=== PATIENT | female | born 1960 | race Hispanic/Latino ===

== ENCOUNTER 2018-05-29 06:31 | Inpatient (IN) | payer MEDICARE, SELFPAY ==
[2018-05-29] MEDS ORDERED: ALBUTEROL 2.5 MG/3 ML NEB SOL ONE (06:50)
[2018-05-29] MEDS ORDERED: IPRATROPIUM BROM 0.5MG/2.5ML ONE (06:50)
[2018-05-29 07:08] LABS: Arterial Blood Carboxyhemoglob 0.4 % (0-1.5); Blood Gas Oxyhemoglobin 97.1 % (94-97); Blood O2 Saturation 98.7 % (92-98.5)
[2018-05-29] MEDS ORDERED: dilTIAZem HCl 25 MG/5 ML VIAL IV ONE (07:21)
[2018-05-29 07:27] LABS: Absolute Lymphocytes (CBC) 6.8 K/uL (0.7-4.9); Absolute Monocytes 1.9 K/uL (0.1-1.3); Absolute Neutrophil 18.6 K/uL (1.8-8.0); Basophils % 0.7 % (0-1.3); Eosinophils % 1.3 % (0-4.4); Hematocrit 40.2 % (36.0-45.0); Lymphocytes % 24.4 % (15.3-44.8); Monocytes % 6.8 % (3.3-12.3)
[2018-05-29 07:28] LABS: Protime INR 0.94
[2018-05-29] MEDS ORDERED: AZITHROMYCIN IV 500 MG in NA CHLORIDE 0.9% 250 ML IVPB ONE (08:00)
[2018-05-29] MEDS ORDERED: CEFTRIAXONE/SWI 1gm 1 GM/10 ML SYR ONE (08:04)
[2018-05-29 08:17] LABS: ALT/SGPT 63 U/L (12-78); AST/SGOT 45 U/L (15-37); Albumin 3.2 g/dL (3.4-5.0); Alkaline Phosphatase 158 U/L (45-117); BUN Blood Urea Nitrogen 19 mg/dL (7-18); Bicarbonate 20 mmol/L (21-32); Bilirubin Direct < 0.1 mg/dL (0-0.2); Bilirubin Total 0.3 mg/dL (0.2-1.0); Magnesium 2.5 mg/dL (1.8-2.4); NT PRO-BNP 1132 pg/mL (<125); Potassium 3.9 mmol/L (3.5-5.1); Sodium Level 142 mmol/L (136-145); Troponin (Emerg Dept Use Only) 0.32 ng/mL (0.0-0.045)
[2018-05-29 08:19] LABS: Glucose Level 416 mg/dL (74-106)
--- NOTE | 2018-05-29 08:24 | RAD REPORT ---
EXAM DESCRIPTION: RAD - Chest Single View - 05/29/2018 7:38 am CLINICAL HISTORY: Dyspnea COMPARISON: None. TECHNIQUE: AP portable chest image was obtained 0735 hours . FINDINGS: Interstitial and alveolar opacification present in each lung base, worse in the right base where there is obscuring of the right hemidiaphragm. Focal density obscuring the right heart border is likely right middle lobe consolidation. Cardiac silhouette overall is enlarged. Pulmonary vasculat ure is only mildly prominent. No focal upper lung field abnormality. Cardiac leads overlie the chest. There is an additional radiopaque tube overlying the upper right chest not fully imaged. No pneumoth orax. No acute bony abnormality seen. No acute aortic findings suspected. IMPRESSION: Extensive right middle lobe opacification with additional evidence for right lower lobe infiltrate. Left base interstitial and alveolar opacification present as well. Cardiomegaly without vascular engorgement.
--- NOTE | 2018-05-29 08:43 | EDPHYS ---
Physician Documentation [facility] Name: Irlanda Woods Age: 58 yrs Sex: Female : 1960 Arrival Date: 05/29/2018 Time: 06:32 Bed 3 Private MD: ED Physician Kannan Martines HPI: 05/29 06:48 This 58 yrs old Female presents to ER via Unassigned with complaints of ps1 Respiratory Distress. 06:48 Patient has a history of COPD, Afib on Eliquis, sees Dr. Ugarte and Allen in [place], ps1 States that she started having increased shortness of breath this morning. She called EMS and they gave her steroids and breathing treatments VEGETABLES COOK. . Historical: - Allergies: 06:58 No Known Allergies; rr5 - PMHx: 07:01 COPD; Myocardial infarction; Diabetes - NIDDM; rr5 07:02 Hypertension; Atrial Fib; rr5 - PSHx: 07:01 Heart stents; rr5 - Immunization history:: Adult Immunizations up to date. - Social history:: Smoking status: Patient uses tobacco products. - Ebola Screening: : No symptoms or risks identified at this time. ROS: 06:48 Constitutional: Negative for fever, chills, and weight loss, Eyes: Negative for injury, ps1 pain, redness, and discharge, ENT: Negative for injury, pain, and discharge, Abdomen/GI: Negative for abdominal pain, nausea, vomiting, diarrhea, and constipation, Back: Negative for injury and pain, MS/Extremity: Negative for injury and deformity, Skin: Negative for injury, rash, and discoloration, Neuro: Negative for headache, weakness, numbness, tingling, and seizure. 06:48 Cardiovascular: Positive for palpitations. 06:48 Respiratory: Positive for cough, shortness of breath, wheezing. Exam: 06:48 Head/Face: Normocephalic, atraumatic. Eyes: Pupils equal round and reactive to light, ps1 extra-ocular motions intact. Lids and lashes normal. Conjunctiva and sclera are non-icteric and not injected. Chest/axilla: Normal chest wall appearance and motion. Nontender with no deformity. No lesions are appreciated. Abdomen/GI: Soft, non-tender, with normal bowel sounds. No distension or tympany. No guarding or rebound. No evidence of tenderness throughout. Skin: Warm, dry with normal turgor. Normal color with no rashes, no lesions, and no evidence of cellulitis. MS/ Extremity: Pulses equal, no cyanosis. Neurovascular intact. Full, normal range of motion. Neuro: Awake and alert, GCS 15, oriented to person, place, time, and situation. Cranial nerves II-XII grossly intact. Sensory grossly intact. Psych: Awake, alert, with orientation to person, place and time. Behavior, mood, and affect are within normal limits. 06:48 Constitutional: The patient appears alert, in obvious distress, moderately distressed. 06:48 Cardiovascular: Rate: tachycardic, Rhythm: irregular, Pulses: no pulse deficits are appreciated. 06:48 Respiratory: moderate respiratory distress is noted, Respirations: labored breathing, Breath sounds: wheezing: Vital Signs: 06:30 BP 173 / 93; Pulse 149; Resp 26; Temp 96(O); Pulse Ox 87% on Non-rebreather mask; rr5 Weight 117.93 kg; Height 5 ft. 6 in. (167.64 cm); 07:06 BP 132 / 82; Pulse 111; Resp 22; Pulse Ox 96% on BiPAP; rr5 07:38 BP 131 / 81; Pulse 97; Resp 26; Pulse Ox 95% on BiPAP; Pain 0/10; jl7 09:04 BP 137 / 81; Pulse 100; Resp 20; Pulse Ox 96% on BiPAP; hj 09:50 BP 121 / 69; Pulse 96; Resp 19 S; Pulse Ox 95% on BiPAP; jl7 06:30 Body Mass Index 41.96 (117.93 kg, 167.64 cm) rr5 MDM: 07:00 Patient medically screened. ps1 08:44 Data reviewed: vital signs, nurses notes, lab test result(s), radiologic studies. kdr Counseling: I had a detailed discussion with the patient and/or guardian regarding: the historical points, exam findings, and any diagnostic results supporting the discharge/admit diagnosis, lab results, radiology results, the need for further work-up and treatment in the hospital. 05/29 06:34 Order name: Basic Metabolic Panel; Complete Time: 08:42 rr5 05/29 06:34 Order name: CBC with Diff rr5 05/29 06:34 Order name: LFT's; Complete Time: 08:42 rr5 05/29 06:34 Order name: Magnesium; Complete Time: 08:42 rr5 05/29 06:34 Order name: NT PRO-BNP; Complete Time: 08:42 rr5 05/29 06:34 Order name: PT-INR; Complete Time: 07:40 rr5 05/29 06:34 Order name: Troponin (emerg Dept Use Only); Complete Time: 08:42 rr5 05/29 06:34 Order name: Blood Culture Adult (2) rr5 05/29 06:34 Order name: Lactate; Complete Time: 08:19 rr5 05/29 06:58 Order name: Procalcitonin; Complete Time: 08:42 ps1 05/29 07:05 Order name: ABG; Complete Time: 07:40 ea 05/29 08:36 Order name: Glucose, Ancillary Testing; Complete Time: 08:42 EDMS 05/29 09:07 Order name: Manual Differential EDMS 05/29 10:04 Order name: Glucose, Ancillary Testing EDMS 05/29 06:34 Order name: XRAY Chest (1 view); Complete Time: 08:42 rr5 05/29 06:34 Order name: EKG; Complete Time: 06:35 rr5 05/29 06:34 Order name: Cardiac monitoring; Complete Time: 06:36 rr5 05/29 06:34 Order name: EKG - Nurse/Tech; Complete Time: 06:36 rr5 05/29 06:34 Order name: IV Saline Lock; Complete Time: 06:36 rr5 05/29 06:34 Order name: Labs collected and sent; Complete Time: 06:36 rr5 05/29 06:34 Order name: O2 Per Protocol; Complete Time: 06:36 rr5 05/29 06:34 Order name: O2 Sat Monitoring; Complete Time: 06:36 rr5 Administered Medications: 06:35 Drug: Ativan 1 mg Route: IVP; Site: left antecubital; rr5 07:00 Follow up: Response: No adverse reaction jl7 06:35 Drug: Cardizem 10 mg Route: IVP; Site: left antecubital; rr5 07:00 Follow up: Response: No adverse reaction jl7 06:42 Drug: Cardizem 10 mg Route: IVP; Site: left antecubital; rr5 07:00 Follow up: Response: No adverse reaction jl7 08:03 Drug: Rocephin 1 grams Route: IV; Rate: calculated rate; Site: right forearm; 08:05 Follow up: Response: No adverse reaction; IV Status: Completed infusion 08:04 Not Given (Duplicate Order): Rocephin - (cefTRIAXone) 1 grams IVPB once over 30 mins; jl7 (mix in 50 mL NS) 08:15 Drug: Zithromax 500 mg Route: IVPB; Infused Over: 1 hrs; Site: right forearm; jl 09:15 Follow up: Response: No adverse reaction; IV Status: Completed infusion 08:43 Drug: Insulin Regular Human 10 units {Co-Signature: vicky (Dennis Leigh RN).} Route: IVP; Site: right forearm; 10:26 Follow up: Response: No adverse reaction; Blood sugar is lowered 08:44 Drug: NS 0.9% (30 ml/kg) 30 ml/kg Route: IV; Rate: bolus; Site: right forearm; 09:55 Follow up: IV Status: Completed infusion; IV Intake: 1000ml Point of Care Testing: Blood Glucose: 06:30 Blood Glucose: 412 mg/dL; rr5 Ranges: Critical Glucose Levels:Adult <50 mg/dl or >400 mg/dl <40 mg/dl or >180 mg/dl Disposition: 05/29/18 08:42 Hospitalization ordered by Jesus Coello for Inpatient Admission. Preliminary diagnosis are Acute Respiratory Failure, Pneumonia, unspecified organism. - Bed requested for Intensive Care Unit. - Status is Inpatient Admission. jl7 - Condition is Serious. - Problem is new. - Symptoms have improved. UTI on Admission? No Signatures: Dispatcher [employer] EDMS Asha Hutchins Kevin, MD MD kdr Leal, Jahala, RN RN jl7 Jatinder Patton MD MD ps1 Roque, Raymond, RN RN rr5 Dennis perry Corrections: (The following items were deleted from the chart) 08:44 08:42 Hospitalization Ordered by Jesus Coello DO for Inpatient Admission. Preliminary kdr diagnosis is Acute Respiratory Failure. Bed requested for Telemetry/MedSurg (Inpatient). Status is Inpatient Admission. Condition is Serious. Problem is new. Symptoms have improved. UTI on Admission? No. kdr 09:43 08:44 05/29/2018 08:42 Hospitalization Ordered by Jesus Coello DO for Inpatient bd Admission. Preliminary diagnosis is Acute Respiratory Failure; Pneumonia, unspecified organism. Bed requested for Telemetry/MedSurg (Inpatient). Status is Inpatient Admission. Condition is Serious. Problem is new. Symptoms have improved. UTI on Admission? No. kdr 10:27 09:43 05/29/2018 08:42 Hospitalization Ordered by Jesus Coello DO for Inpatient jl7 Admission. Preliminary diagnosis is Acute Respiratory Failure; Pneumonia, unspecified organism. Bed requested for Intensive Care Unit. Status is Inpatient Admission. Condition is Serious. Problem is new. Symptoms have improved. UTI on Admission? No. bd
--- NOTE | 2018-05-29 08:43 | ER ---
Nurse's Notes [facility] Name: Irlanda Woods Age: 58 yrs Sex: Female : 1960 Arrival Date: 05/29/2018 Time: 06:32 Bed 3 Private MD: Diagnosis: Acute Respiratory Failure;Pneumonia, unspecified organism Presentation: 05/29 06:30 Presenting complaint: EMS states: Respiratory distress, 87% on NRB after A\T\A treatment, rr5 Pt is pale and diaphoretic. No tolerating Bipap 20 g L AC, 4 mg zofran, 125 solumedrol and A\T\A treatment given per EMS. Transition of care: patient was not received from another setting of care. Onset of symptoms was May 29, 2018. Risk Assessment: Do you want to hurt yourself or someone else? Patient reports no desire to harm self or others. Initial Sepsis Screen: Does the patient meet any 2 criteria? RR > 20 per min. HR > 90 bpm. Does the patient have a suspected source of infection? No. Patient's initial sepsis screen is negative. Care prior to arrival: Medication(s) given: Albuterol Neb x 1, Atrovent Neb x 1, zofran 4 mg, 125 solumedrol IV initiated. 20 GA, in the left antecubital area, Oxygen administered. via a non-rebreather mask. 06:30 Method Of Arrival: EMS: [facility] rr5 06:30 Acuity: KIRK 1 rr5 Triage Assessment: 06:30 General: Appears distressed, uncomfortable, Behavior is appropriate for age, anxious, rr5 listless, restless. Pain: Complains of pain in chest. Neuro: Level of Consciousness is obeys commands, listless, Oriented to person, place, time, situation. Cardiovascular: Rhythm is sinus tachycardia. Respiratory: Reports shortness of breath labored breathing Airway is patent Respiratory effort is labored, pursed lip, Respiratory pattern is symmetrical, tachypnea Breath sounds with wheezes bilaterally. Onset: The symptoms/episode began/occurred this morning, the patient has severe shortness of breath. GI: Reports nausea. : No signs and/or symptoms were reported regarding the genitourinary system. Derm: Skin is diaphoretic, Skin is pale, Skin temperature is cool. Historical: - Allergies: 06:58 No Known Allergies; rr5 - PMHx: 07:01 COPD; Myocardial infarction; Diabetes - NIDDM; rr5 07:02 Hypertension; Atrial Fib; rr5 - PSHx: 07:01 Heart stents; rr5 - Immunization history:: Adult Immunizations up to date. - Social history:: Smoking status: Patient uses tobacco products. - Ebola Screening: : No symptoms or risks identified at this time. Screenin:44 Abuse screen: Denies threats or abuse. Denies injuries from another. Nutritional rr5 screening: No deficits noted. Tuberculosis screening: No symptoms or risk factors identified. Fall Risk IV access (20 points). Total Jones Fall Scale indicates No Risk (0-24 pts). Assessment: 06:30 General: see triage assessment. rr5 06:55 Reassessment: Dr. Roth VO for 10 units insulin IV, see MAR. rr5 07:03 General: ER MD ordered to hold insulin until CMP returns. rr5 07:15 Pain: Denies pain. Neuro: Level of Consciousness is awake, alert, obeys commands, jl7 Oriented to person, place, time. Cardiovascular: Denies chest pain, Heart tones S1 S2 present Patient's skin is warm and dry. Rhythm is regular. Respiratory: Airway is patent Respiratory effort is even, labored, Respiratory pattern is symmetrical, tachypnea Breath sounds with crackles bilaterally. Breath sounds with wheezes. GI: No signs and/or symptoms were reported involving the gastrointestinal system. Derm: Skin is pink, warm \T\ dry. 08:36 Reassessment: VO received from Dr. Roth to administer NS 30mg/kg per sepsis protocol. jl7 08:41 Reassessment: VO received from Dr. Roth to administer only 1L NS bolus at this time. jl7 Vital Signs: 06:30 BP 173 / 93; Pulse 149; Resp 26; Temp 96(O); Pulse Ox 87% on Non-rebreather mask; rr5 Weight 117.93 kg; Height 5 ft. 6 in. (167.64 cm); 07:06 BP 132 / 82; Pulse 111; Resp 22; Pulse Ox 96% on BiPAP; rr5 07:38 BP 131 / 81; Pulse 97; Resp 26; Pulse Ox 95% on BiPAP; Pain 0/10; jl7 09:04 BP 137 / 81; Pulse 100; Resp 20; Pulse Ox 96% on BiPAP; hj 09:50 BP 121 / 69; Pulse 96; Resp 19 S; Pulse Ox 95% on BiPAP; jl7 06:30 Body Mass Index 41.96 (117.93 kg, 167.64 cm) rr5 ED Course: 06:30 Patient has correct armband on for positive identification. Placed in gown. Call light rr5 in reach. Side rails up X2. teletypesetter monitor on. Pulse ox on. NIBP on. Head of bed elevated. 06:30 Maintain EMS IV. Dressing intact. Good blood return noted. Site clean \T\ dry. Gauge \T\ rr 5 site: G20 left AC. 06:32 Patient arrived in ED. rr5 06:45 Jatinder Patton MD is Attending Physician. ps1 06:50 Triage completed. rr5 06:56 Radiology exam delayed due to DR ROTH TALKING TO PT. jb2 07:07 Arm band placed on right wrist. rr5 07:09 Risa Vernon RN is Primary Nurse. jl7 07:20 Inserted saline lock: 20 gauge in right forearm, using aseptic technique. Blood rr5 collected. 07:35 X-ray completed. Portable x-ray completed in exam room. Patient tolerated procedure jb2 well. 07:37 XRAY Chest (1 view) In Process Unspecified. EDMS 08:11 Attending Physician role handed off by Jatinder Patton MD kdr 08:11 Kannan Martines MD is Attending Physician. kdr 08:41 Jesus Roth DO is Hospitalizing Provider. kdr 10:24 No provider procedures requiring assistance completed. Patient admitted, IV remains in jl7 place. intact, No redness/swelling at site. Administered Medications: 06:35 Drug: Ativan 1 mg Route: IVP; Site: left antecubital; rr5 07:00 Follow up: Response: No adverse reaction jl7 06:35 Drug: Cardizem 10 mg Route: IVP; Site: left antecubital; rr5 07:00 Follow up: Response: No adverse reaction jl7 06:42 Drug: Cardizem 10 mg Route: IVP; Site: left antecubital; rr5 07:00 Follow up: Response: No adverse reaction jl7 08:03 Drug: Rocephin 1 grams Route: IV; Rate: calculated rate; Site: right forearm; jl7 08:05 Follow up: Response: No adverse reaction; IV Status: Completed infusion jl7 08:04 Not Given (Duplicate Order): Rocephin - (cefTRIAXone) 1 grams IVPB once over 30 mins; jl7 (mix in 50 mL NS) 08:15 Drug: Zithromax 500 mg Route: IVPB; Infused Over: 1 hrs; Site: right forearm; jl7 09:15 Follow up: Response: No adverse reaction; IV Status: Completed infusion jl7 08:43 Drug: Insulin Regular Human 10 units {Co-Signature: vicky (Dennis Leigh RN).} Route: IVP; jl7 Site: right forearm; 10:26 Follow up: Response: No adverse reaction; Blood sugar is lowered 08:44 Drug: NS 0.9% (30 ml/kg) 30 ml/kg Route: IV; Rate: bolus; Site: right forearm; jl7 09:55 Follow up: IV Status: Completed infusion; IV Intake: 1000ml jl7 Point of Care Testing: Blood Glucose: 06:30 Blood Glucose: 412 mg/dL; rr5 Ranges: Intake: 09:55 IV: 1000ml; Total: 1000ml. jl7 Outcome: 08:42 Decision to Hospitalize by Provider. kdr 10:24 Admitted to ICU accompanied by nurse, accompanied by tech, via stretcher, room 6, with jl7 oxygen, on monitor, with chart, Report called to SUZE Hopkins 10:24 Condition: stable 10:24 Discharge instructions given to patient, Instructed on the need for admit, Demonstrated understanding of instructions. 10:27 Patient left the ED. jl7 Signatures: Dispatcher [employer] EDMS Kannan Martines MD MD kdr Buechter, Jesse jb2 Joaquin, Henry, RN Risa Strange RN RN jl7 Jatinder Patton MD MD ps1 Roque, Raymond RN RN rr5 Dennis perry Corrections: (The following items were deleted from the chart) 07:05 07:02 General: see triage assessment. rr5 rr5
[2018-05-29] MEDS ORDERED: INSULIN -REGULAR HUMAN 50 UNIT/0.5 ML ML ONE (08:45)
[2018-05-29] MEDS ORDERED: NA CHLORIDE 0.9% 3,000 ML ONE (08:45)
[2018-05-29 09:06] LABS: Blood Morphology Comment NOT SEEN (NOT SEEN); Platelet Estimate ADEQ
--- NOTE | 2018-05-29 10:03 | P.HP ---
Certification for Inpatient Patient admitted to: Inpatient With expected LOS: >2 Midnights Patient will require the following post-hospital care: None Practitioner: I am a practitioner with admitting privileges, knowledge of patient current condition, hospital course, and medical plan of care. Services: Services provided to patient in accordance with Admission requirements found in Title 42 Section 412.3 of the Code of Federal Regulations Patient History Date of Service: 05/29/18 Primary Care Provider: Dr. Ugarte([facility]); Cardiology-Dr. Villa Reason for admission: Shortness of breath History of Present Illness: 58-year-old female presented to the emergency room with increasing shortness of breath. Patient with history of COPD, atrial fibrillation, diabetes, tobacco use. The patient presented to the ER with increasing shortness of breath. Some reports of sweats and poor intake noted. Nausea also reported. Patient reports that she was seen 2 days ago in the emergency room. She was sent home with antibiotics and steroids without improvement. In the ER upon initial valuation patient was tachycardic and tachypneic. Patient required BiPAP. She was given breathing treatments along with IV steroids. In the ER white count 27.8, hemoglobin 12.4. Initial blood gases showed a pH is 7.09 with a pCO2 of 71, P O2 of 276. Bicarb 20. Troponin at 0.32. BNP 1132. Sodium 142, potassium 3.9, BUN of 19, creatinine 1.23 with a GFR 45. Glucose 416. Chest x-ray showed more right middle and lower lobe pneumonia. Patient was admitted for further evaluation and treatment. When I saw the patient initially patient was on BiPAP. Re-examination after breathing treatments and BiPAP showed significant improvement. Patient still required BiPAP. Patient stable at this time. Will go to ICU. Allergies No Known Allergies Allergy (Unverified 05/29/18 07:56) Home medications list reviewed: Yes - Past Medical/Surgical History Diabetic: Yes -: Diabetes mellitus type 2 -: Hypertension -: Atrial fibrillation -: COPD -: Obesity -: Tobacco abuse -: Vein stripping -: Cholecystectomy Psychosocial/ Personal History: Patient is . She lives with her child. - Family History Family History: Reviewed- Non-Contributory - Social History Smoking Status: Heavy Tobacco smoker (>10 cigarettes/day) Counseled patient to stop smoking for: less than 10 minutes Smoking therapy provided: Yes Patient receptive to therapy: Yes Alcohol use: No CD- Drugs: No Caffeine use: Yes Place of Residence: Home Review of Systems General: Sweats, Weakness, As per HPI Eyes: Unremarkable ENT: Unremarkable Respiratory: Cough, Shortness of Breath, SOB with Excertion, Wheezing, As per HPI Cardiovascular: Paroxysmal Noc. Dyspnea, As per HPI Gastrointestinal: Nausea, Unremarkable Genitourinary: Unremarkable Musculoskeletal: Unremarkable Integumentary: Unremarkable Neurological: As per HPI Lymphatics: Unremarkable Physical Examination - Physical Exam General: Alert, Oriented x3, Cooperative, Mild distress, Other (Patient on BiPAP ) HEENT: Atraumatic, Normocephalic, PERRLA, Other (Dry mucous membranes) Neck: Supple, No Thyromegaly Respiratory: Crackles/rales (To the right side), Expiratory wheezes (Bilateral) , Inspiratory wheezes (Bilateral) Cardiovascular: Other (Patient initially tachycardic on my initial examination. On 2nd evaluation patient in normal sinus rhythm, rate controlled) Gastrointestinal: Normal bowel sounds, Soft and benign, Non-distended, No tenderness, No masses, No rebound, No guarding Musculoskeletal: No erythema, No tenderness, No warmth Integumentary: No tenderness/swelling, No erythema, No warmth, No cyanosis Neurological: Normal speech, Normal strength at 5/5 x4 extr, Normal tone, Normal affect - Studies Laboratory Data (last 24 hrs) 05/29/18 06:30: PT 11.1, INR 0.94 05/29/18 06:30: WBC 27.8 H*, Hgb 12.4, Hct 40.2, Plt Count 413 H 05/29/18 06:30: Sodium 142, Potassium 3.9, BUN 19 H, Creatinine 1.23, Glucose 416 H*, Magnesium 2.5 H, Total Bilirubin 0.3, AST 45 H, ALT 63, Alkaline Phosphatase 158 H Assessment and Plan - Plan Impression: Acute on chronic respiratory failure secondary to COPD exacerbation complicated with right-sided pneumonia failed outpatient therapy Elevated troponin likely from acute respiratory failure possible NSTEMI suspect history of chronic diastolic CHF with CAD Suspect history of atrial fibrillation as patient on chronic anti coagulation therapy Acute renal injury secondary to dehydration Diabetes mellitus type 2, uncontrolled Hypertension Suspect obstructive sleep apnea Tobacco abuse Plan: Acute on chronic respiratory failure secondary to COPD exacerbation complicated with right-sided pneumonia failed outpatient therapy: Patient reassessed prior to admission. Patient no longer tachycardic. Blood pressure stable. Patient remains on BiPAP but improved. Patient will be admitted to ICU for close monitoring. Blood culture, sputum culture and urine culture obtained. Will start IV vancomycin and cefepime due to failed outpatient therapy. Will continue with COPD treatment. Will consult pulmonology to further evaluate and treat. Doubt sepsis as pro calcitonin negative. Will recheck lactic acid and ABG within the next 2 hr. Respiratory to adjust BiPAP. Maintain oxygen saturations above 90%. Elevated troponin likely from acute respiratory failure possible NSTEMI suspect history of chronic diastolic CHF with CAD: Patient on Eliquis likely for underlying history of atrial fibrillation. Continue to monitor closely. Case discussed with cardiology. Cardiology is familiar with patient. Will recheck echocardiogram. Doubt no intervention required due to acute respiratory failure and pneumonia. Suspect history of atrial fibrillation as patient on chronic anti coagulation therapy: Will need to confirm diagnosis. Will restart Eliquis. Obtain home medication. Acute renal injury secondary to dehydration: Will provide IV fluid bolus and continue with maintenance. Monitor closely. Diabetes mellitus type 2, uncontrolled: Will start basal insulin. Will provide sliding scale. Will check A1c. Hypertension: Will need to obtain home medication. Will provide medication as needed Suspect obstructive sleep apnea: Will need to confirm if patient using BiPAP at home. If not patient will require sleep study as an outpatient. Tobacco abuse: Cessation addressed. Will continue to address daily. Patient may require nicotine patch during her stay. Discharge Plan: Home Plan to discharge in: Greater than 2 days - Advance Directives Does patient have a Living Will: No Does patient have a Durable POA for Healthcare: No - Code Status/Comfort Care Code Status Assessed: Yes (Patient is full code.) Time Spent Managing Pts Care (In Minutes): 65
[2018-05-29] MEDS ORDERED: GLUCAGON 1 MG/VIAL IM PRN (10:12)
[2018-05-29] MEDS ORDERED: ACETAMINOPHEN 500 MG TAB PO PRN (10:12)
[2018-05-29] MEDS ORDERED: APIXABAN 2.5 MG TABLET PO SCH (10:12)
[2018-05-29] MEDS ORDERED: D50W 25 GM/50 ML SYRINGE IV PRN (10:12)
[2018-05-29] MEDS ORDERED: ONDANSETRON 4 MG/2 ML VIAL IV PRN (10:12)
[2018-05-29] MEDS ORDERED: CEFEPIME 1 GM/VIAL IV SCH (10:12)
[2018-05-29] MEDS ORDERED: VANCOMYCIN 2 GM in NA CHLORIDE 0.9% 500 ML IVPB SCH (11:00)
[2018-05-29] MEDS: FAMOTIDINE 20 MG TAB PO SCH ×2 (11:03→20:41)
[2018-05-29] MEDS: predniSONE 20 MG TAB PO SCH ×2 (11:03→20:39)
[2018-05-29] MEDS: LORAZEPAM 0.5 MG TABLET PO PRN ×2 (11:03→18:03)
[2018-05-29] MEDS: NA CHLORIDE 0.9% 1,000 ML IV SCH ×2 (11:03→19:49)
[2018-05-29] MEDS: TIOTROPIUM 5 SPRAYS/INHALER IH SCH (11:05)
[2018-05-29 11:36] LABS: Thyroid Stimulating Hormone < 0.005 uIU/mL (0.360-3.740)
[2018-05-29 12:24] LABS: Arterial Blood Carboxyhemoglob 1.6 % (0-1.5); Blood Gas Oxyhemoglobin 93.8 % (94-97); Blood O2 Saturation 95.8 % (92-98.5)
[2018-05-29] MEDS: CEFEPIME/SWI 1gm 10 ML IV SCH (12:29)
[2018-05-29] MEDS: INSULIN -REGULAR HUMAN 50 UNIT/0.5 ML ML SQ SCH ×3 (12:30→20:39)
[2018-05-29 12:44] LABS: CKMB Creatine Kinase MB 3.1 ng/mL (0.3-3.6); Troponin I 0.33 ng/mL (0.0-0.045)
--- NOTE | 2018-05-29 13:06 | EKG ---
Test Date: 2018-05-29 Test Time: 06:31:19 Window Display Designer: SUSAN MEASUREMENT RESULTS: Intervals: Rate: 145 MS: 152 QRSD: 94 QT: 268 QTc: 416 [place]: P: -3 MS: 152 QRS: 42 T: 95 INTERPRETIVE STATEMENTS: Sinus tachycardia Nonspecific ST and T wave abnormality Abnormal ECG No previous ECG available for comparison Electronically Signed On 05-29-18 13:03:56 [employer]ER SWORDFISH by Raul Zelaya
--- NOTE | 2018-05-29 14:15 | CON ---
History Of Present Illness: The patient was admitted on 05/29/[address] Coello's service with resp iratory distress, COPD exacerbation. She has a history of COPD, atrial fibrillation, on Eliquis. Jing anderson sees Dr. Villa in [place] for her cardiology care, has been here recently and was seen her as well. Supposed to have had history of CAD. She also has a history of hypertension. Came in with COPD exa cerbation, pneumonia. White count of almost 27,000, was found to have a positive troponin. We were consulted. There is an echocardiogram pending. No chest pain recorded. Reported no palpitation, no syncope. Past Medical History: As stated above. Allergies: NONE. Review of Systems: Negative. Social History: Negative. Family History: Negative. Medications: Listed by Dr. Coello. Physical Examination: Vital Signs: Her vital signs are stable. She was afebrile. She was in sinus tach. Her O2 saturatio n was 98% on BiPAP with blood gas showing pO2 of 276, pCO2 of 71.9, pH 7.09, consistent with severe r espiratory acidosis. HEENT: Negative. Neck: Supple with no bruit. Chest: Reveals wheezing and decreased bilateral breath sounds bilaterally. Cardiac: Revealed tachycardia. No murmurs, gallops, or rubs. Abdomen: Benign. Extremities: Revealed no clubbing, cyanosis, or edema. Laboratory Data: White count was 27,800. Chest x-ray showed pneumonia. Glucose was 416. Troponin was 0.32 with a BNP of 1132. Impression And Plan: 1.Elevated troponin secondary to respiratory acidosis and hypoxia pneumonia. 2.History of hypertension. 3.History of coronary artery disease. 4.History of atrial fibrillation. I agree with the echocardiogram to see if there are any new wall motion abnormalities. She recently had a cardiac workup in the hospital, although I do not see it on her records. I agree with present regimen. No changes in therapy unless her echocardiogram shows anything significant. CHACHO/ARTEM Voice ID: [id number] Report ID: [id number]
[2018-05-29] MEDS: AMLODIPINE 10 MG TAB PO SCH (16:46)
[2018-05-29] MEDS: IPRATROPIUM BROM 0.5MG/2.5ML NEB PRN ×2 (17:15→20:21)
[2018-05-29] MEDS: ALBUTEROL 2.5 MG/3 ML NEB SOL NEB PRN (17:15)
[2018-05-29] MEDS ORDERED: FUROSEMIDE 20 MG/ 2ML VIAL IV ONE ×2 (18:32→19:00)
[2018-05-29] MEDS ORDERED: FUROSEMIDE 20 MG/ 2ML VIAL ONE (19:06)
[2018-05-29] MEDS: ARFORMOTEROL TARTRATE 15 MCG/2 ML VIAL.NEB NEB SCH (20:00)
[2018-05-29] MEDS: APIXABAN 5 MG TABLET PO SCH (20:38)
[2018-05-29] MEDS: CARVEDILOL 12.5 MG TAB PO SCH (20:38)
[2018-05-29] MEDS: PREGABALIN 150 MG CAP PO SCH (20:39)
[2018-05-29] MEDS: INSULIN GLARGINE 100 UNITS/ML SQ SCH (20:40)
[2018-05-29 21:00] LABS: Troponin I 0.37 ng/mL (0.0-0.045)
[2018-05-29] MEDS ORDERED: HOME MED 1 EA UNK (Pregabalin [Lyrica] 300 MG) PO SCH (21:00)
[2018-05-29 21:07] LABS: Urine Appearance CLEAR; Urine Bilirubin NEGATIVE (NEG); Urine Blood NEGATIVE (NEG); Urine Color YELLOW; Urine Glucose NEGATIVE (NEG); Urine Protein NEGATIVE (NEG); Urine Specific Gravity <=1.005 (1.005-1.030); Urine Urobilinogen 0.2 mg/dL (0.2-1.0)
[2018-05-29 21:21] LABS: Urine Microscopic Reflex NO UMIC
[2018-05-29] MEDS ORDERED: guaiFENesin 100 MG/5 ML UCUP ONE (22:38)
[2018-05-30] MEDS: guaiFENesin 100 MG/5 ML UCUP PO PRN ×4 (01:37→21:48)
[2018-05-30] MEDS: LORAZEPAM 0.5 MG TABLET PO PRN ×4 (01:47→21:48)
[2018-05-30 05:45] LABS: Absolute Lymphocytes (CBC) 1.8 K/uL (0.7-4.9); Absolute Monocytes 1.2 K/uL (0.1-1.3); Absolute Neutrophil 12.5 K/uL (1.8-8.0); Basophils % 0.3 % (0-1.3); Eosinophils % 0.1 % (0-4.4); Hematocrit 31.4 % (36.0-45.0); Lymphocytes % 11.7 % (15.3-44.8); MPV 9.2 fL (7.6-11.3); Monocytes % 7.6 % (3.3-12.3); RBC Red Blood Cell Count 3.67 M/uL (3.86-4.86)
[2018-05-30 05:49] LABS: Potassium 4.4 mmol/L (3.5-5.1)
[2018-05-30] MEDS: IPRATROPIUM BROM 0.5MG/2.5ML NEB PRN (07:46)
[2018-05-30] MEDS: ARFORMOTEROL TARTRATE 15 MCG/2 ML VIAL.NEB NEB SCH ×2 (07:46→20:15)
[2018-05-30] MEDS: FAMOTIDINE 20 MG TAB PO SCH ×2 (08:17→21:48)
[2018-05-30] MEDS: predniSONE 20 MG TAB PO SCH ×2 (08:17→21:48)
[2018-05-30] MEDS: ASPIRIN EC 81 MG TAB PO SCH (08:17)
[2018-05-30] MEDS: SERTRALINE HCL 50 MG TAB PO SCH (08:18)
[2018-05-30] MEDS: AMLODIPINE 10 MG TAB PO SCH (08:18)
[2018-05-30] MEDS: CARVEDILOL 12.5 MG TAB PO SCH ×2 (08:18→21:48)
[2018-05-30] MEDS: INSULIN -REGULAR HUMAN 50 UNIT/0.5 ML ML SQ SCH ×4 (08:19→21:49)
[2018-05-30] MEDS: MONTELUKAST 10 MG TAB PO SCH (08:19)
[2018-05-30] MEDS: APIXABAN 5 MG TABLET PO SCH ×2 (08:19→21:49)
[2018-05-30] MEDS: TIOTROPIUM 5 SPRAYS/INHALER IH SCH (08:21)
--- NOTE | 2018-05-30 08:26 | RAD REPORT ---
EXAM DESCRIPTION: RAD - Chest Single View - 05/30/2018 6:37 am CLINICAL HISTORY: follow up Pneumonia/COPD/Acute Resp. Failure Chest pain. COMPARISON: Chest Single View dated 05/29/2018 FINDINGS: Portable technique limits examination quality. Since 05/29/2018, moderate improvement in bibasilar lung aeration is noted. The heart is moderately e nlarged in size. Aortic atherosclerosis. IMPRESSION: Moderate improvement bibasilar lung aeration since comparative study.
[2018-05-30] MEDS: ALBUTEROL 2.5 MG/3 ML NEB SOL NEB PRN ×3 (08:37→20:15)
[2018-05-30] MEDS: CEFEPIME/SWI 1gm 10 ML IV SCH (08:48)
[2018-05-30] MEDS ORDERED: METFORMIN HCL 500 MG TAB PO SCH (09:00)
[2018-05-30] MEDS: PREGABALIN 150 MG CAP PO SCH ×2 (09:12→21:48)
--- NOTE | 2018-05-30 10:25 | P.PN ---
Subjective Date of Service: 05/30/18 Primary Care Provider: Dr. Ugarte([facility]); Cardiology-Dr. Villa Chief Complaint: Shortness of breath Subjective: Improving Physical Examination - Vital Signs Temperature: 98.3 F Blood Pressure: 141/69 Pulse: 89 Respirations: 24 Pulse Ox (%): 93 - Physical Exam General: Alert, In no apparent distress, Oriented x3, Cooperative HEENT: Atraumatic Neck: Supple Respiratory: Crackles/rales (Mild crackles to the bases), Expiratory wheezes ( Less wheezing bilateral), Inspiratory wheezes Cardiovascular: Regular rate/rhythm Gastrointestinal: Normal bowel sounds, Soft and benign, Non-distended, No tenderness, No masses, No rebound, No guarding Musculoskeletal: No erythema, No tenderness, No warmth Integumentary: No erythema, No warmth, No cyanosis Neurological: Normal speech, Normal strength at 5/5 x4 extr, Normal tone, Normal affect - Studies Medications List Reviewed: Yes Assessment & Plan Discharge Plan: Other (care home placement) Plan to discharge in: 72 Hours Physician Review Additional Text: Impression: Acute on chronic respiratory failure secondary to COPD exacerbation complicated with right-sided pneumonia failed outpatient therapy Elevated troponin likely from acute respiratory failure possible NSTEMI suspect history of chronic diastolic CHF with CAD Suspect history of atrial fibrillation as patient on chronic anti coagulation therapy Acute renal injury secondary to dehydration Diabetes mellitus type 2, uncontrolled Hypertension Suspect obstructive sleep apnea Tobacco abuse Obesity BMI 41.8 Plan: Acute on chronic respiratory failure secondary to COPD exacerbation complicated with right-sided pneumonia failed outpatient therapy: Patient much improved. Patient no longer tachycardic. Patient on nasal cannula this morning. Will transition patient from ICU to the floor. Will have physical therapy assess ambulation. Patient would benefit with skilled placement. Patient agrees. Will have social media assistant help in this process. Will continue IV antibiotic therapy. Continue COPD treatment. Will wean off oxygen. Continue oral steroids. Await further recommendations from pulmonology. Elevated troponin likely from acute respiratory failure possible NSTEMI suspect history of chronic diastolic CHF with CAD: Continue with current medication. Case discussed with cardiology yesterday. Patient with CAD with multiple stents and prior recent heart catheterization. No plan for cardiac intervention. Continue with medical treatment. Suspect history of atrial fibrillation as patient on chronic anti coagulation therapy: Continue with medication Acute renal injury secondary to dehydration: Patient with improvement. Will discontinue IV fluids due to suspected CHF. Diabetes mellitus type 2, uncontrolled: Continue with basal insulin. Will continue to monitor and adjust. Hypertension: Will continue with medication. Will monitor and adjust. Suspect obstructive sleep apnea: Will recommend sleep study to be done as an outpatient. Tobacco abuse: Cessation addressed. Will continue to address daily. Patient may require nicotine patch during her stay. Obesity BMI 41.8: Continue with lifestyle modification education. Time Spent Managing Pts Care (In Minutes): 55
--- NOTE | 2018-05-30 10:39 | P.CNS ---
Date of Consult: 05/29/18 Primary Care Provider: Dr. Ugarte([facility]); Cardiology-Dr. Villa Chief Complaint: Shortness of breath History of Present Illness: Patient is 58 years of age with a history of COPD admitted with a 2 day history of increasing cough congestion shortness of breath patient is an active smoker and is currently on BiPAP the productive cough Allergies No Known Allergies Allergy (Unverified 05/29/18 07:56) Home Medications: Amlodipine Besylate 10 mg PO DAILY 05/29/18 Apixaban [Eliquis] 5 mg PO BID 05/29/18 Aspirin [Aspirin EC 81 MG] 81 mg PO DAILY 05/29/18 Azithromycin Tab [Zithromax*] 1 tab PO DAILY 05/29/18 Carvedilol 12.5 mg PO BID 05/29/18 Furosemide 20 mg PO DAILY 05/29/18 Metformin HCl [Glucophage*] 1,000 mg PO BID 05/29/18 Montelukast Sodium 1 tab PO DAILY 05/29/18 Pregabalin [Lyrica] 300 mg PO BID 05/29/18 Sertraline HCl 50 mg PO DAILY 05/29/18 predniSONE [Prednisone] 1 tab PO DAILY MDD 5 days 05/29/18 - Past Medical/Surgical History Diabetic: Yes -: Diabetes mellitus type 2 -: Hypertension -: Atrial fibrillation -: COPD -: Obesity -: Tobacco abuse -: Vein stripping -: Cholecystectomy Psychosocial/ Personal History: Patient is . She lives with her child. - Social History Smoking Status: Current every day smoker Alcohol use: No CD- Drugs: No Caffeine use: No Place of Residence: Home Review of Systems 10-point ROS is otherwise unremarkable General: Weakness Respiratory: Cough, Shortness of Breath Physical Examination Temp Pulse Resp BP Pulse Ox 98.3 F 89 24 H 141/69 H 93 05/30/18 10:25 05/30/18 10:25 05/30/18 10:25 05/30/18 10:25 05/30/18 10:25 General: Alert, Oriented x3 Neck: Supple Respiratory: Expiratory wheezes Cardiovascular: No edema, Normal S1 S2 - Problems (1) COPD exacerbation Current Visit: Yes Status: Acute Plan: Patient is 58 years of age admitted with COPD exacerbation she has hypoxic hypercapnic elevated white count chest x-ray shows no obvious infiltrate patient is hemodynamically stable agree be transferred to the floor change to p.o. levofloxacin cultures are so far negative vital signs stable blood gases reviewed patient is only mildly hypercapnic consultation to stops smoking patient is also morbidly obese I risk for sleep apnea
[2018-05-30] MEDS: IPRATROPIUM BROM 0.5MG/2.5ML NEB SCH ×2 (14:00→20:15)
[2018-05-30] MEDS: INSULIN GLARGINE 100 UNITS/ML SQ SCH (21:49)
[2018-05-31] MEDS: IPRATROPIUM BROM 0.5MG/2.5ML NEB SCH ×4 (02:10→19:45)
[2018-05-31] MEDS: ALBUTEROL 2.5 MG/3 ML NEB SOL NEB PRN ×4 (02:10→19:45)
[2018-05-31] MEDS: guaiFENesin 100 MG/5 ML UCUP PO PRN (05:15)
[2018-05-31] MEDS: LORAZEPAM 0.5 MG TABLET PO PRN ×3 (05:15→21:03)
[2018-05-31 06:27] LABS: Absolute Lymphocytes (CBC) 2.1 K/uL (0.7-4.9); Absolute Monocytes 0.8 K/uL (0.1-1.3); Absolute Neutrophil 10.5 K/uL (1.8-8.0); Basophils % 0.4 % (0-1.3); Eosinophils % 0.2 % (0-4.4); Hematocrit 31.3 % (36.0-45.0); Lymphocytes % 15.3 % (15.3-44.8); MPV 9.6 fL (7.6-11.3); Monocytes % 6.2 % (3.3-12.3); RBC Red Blood Cell Count 3.69 M/uL (3.86-4.86)
[2018-05-31 06:39] LABS: Magnesium 2.2 mg/dL (1.8-2.4); Potassium 4.8 mmol/L (3.5-5.1)
[2018-05-31] MEDS: ARFORMOTEROL TARTRATE 15 MCG/2 ML VIAL.NEB NEB SCH ×2 (07:52→19:45)
--- NOTE | 2018-05-31 07:56 | RAD REPORT ---
EXAM DESCRIPTION: RAD - Chest Single View - 05/31/2018 6:29 am CLINICAL HISTORY: Pneumonia, respiratory failure COMPARISON: May 30 TECHNIQUE: AP portable chest image was obtained 0535 hours . FINDINGS: Lung vivar are stable. Opacification on the right heart border has not changed. This coul d be prominent pericardial fat or right middle lobe atelectasis. Cardiomegaly is stable. Vasculature within normal limits and also seen as stable. No measurable pleural effusion and no pneumothorax. No acute bony abnormality seen. No acute aortic findings suspected. IMPRESSION: Stable chest from prior day imaging.
[2018-05-31] MEDS: INSULIN -REGULAR HUMAN 50 UNIT/0.5 ML ML SQ SCH ×4 (10:21→21:04)
[2018-05-31] MEDS: levoFLOXacin 750 MG TAB PO SCH (10:21)
[2018-05-31] MEDS: predniSONE 20 MG TAB PO SCH ×2 (10:21→21:03)
[2018-05-31] MEDS: AMLODIPINE 10 MG TAB PO SCH (10:22)
[2018-05-31] MEDS: FAMOTIDINE 20 MG TAB PO SCH ×2 (10:22→21:03)
[2018-05-31] MEDS: GUAIFENESIN 600 MG SA TAB PO SCH ×2 (10:22→21:03)
[2018-05-31] MEDS: APIXABAN 5 MG TABLET PO SCH ×2 (10:22→21:03)
[2018-05-31] MEDS: ASPIRIN EC 81 MG TAB PO SCH (10:23)
[2018-05-31] MEDS: CARVEDILOL 12.5 MG TAB PO SCH ×2 (10:23→21:03)
[2018-05-31] MEDS: PREGABALIN 150 MG CAP PO SCH ×2 (10:23→21:03)
[2018-05-31] MEDS: SERTRALINE HCL 50 MG TAB PO SCH (10:23)
[2018-05-31] MEDS: MONTELUKAST 10 MG TAB PO SCH (10:24)
--- NOTE | 2018-05-31 12:49 | P.PN ---
Subjective Date of Service: 05/31/18 Primary Care Provider: Dr. Ugarte([facility]); Cardiology-Dr. Villa Chief Complaint: Shortness of breath Subjective: Improving Physical Examination - Vital Signs Temperature: 98.7 F Blood Pressure: 162/76 Pulse: 76 Respirations: 25 Pulse Ox (%): 95 - Physical Exam General: Alert, In no apparent distress, Oriented x3, Cooperative HEENT: Atraumatic Neck: Supple Respiratory: Expiratory wheezes, Inspiratory wheezes, Other (on BIPAP) Cardiovascular: Normal pulses, Regular rate/rhythm Gastrointestinal: Normal bowel sounds, Soft and benign, Non-distended, No masses , No rebound, No guarding Musculoskeletal: No erythema, No tenderness, No warmth Integumentary: No tenderness/swelling, No erythema, No warmth, No cyanosis Neurological: Normal speech, Normal strength at 5/5 x4 extr, Normal tone, Normal affect - Studies Medications List Reviewed: Yes Assessment & Plan Discharge Plan: Other (SNF) Physician Review Additional Text: Impression: Acute on chronic respiratory failure secondary to COPD exacerbation complicated with right-sided pneumonia failed outpatient therapy Elevated troponin likely from acute respiratory failure possible NSTEMI suspect history of chronic diastolic CHF with CAD Suspect history of atrial fibrillation as patient on chronic anti coagulation therapy Acute renal injury secondary to dehydration Diabetes mellitus type 2, uncontrolled Hypertension Suspect obstructive sleep apnea Tobacco abuse Obesity BMI 41.8 Plan: Acute on chronic respiratory failure secondary to COPD exacerbation complicated with right-sided pneumonia failed outpatient therapy: Continue with current regimen. Patient on BiPAP today. Will have physical therapy assess ambulation. Patient would benefit with skilled placement. Patient agrees. Will have transition social worker help in this process. Will continue IV antibiotic therapy. Continue COPD treatment. Will wean off oxygen. Continue oral steroids. Await further recommendations from pulmonology. Elevated troponin likely from acute respiratory failure possible NSTEMI suspect history of chronic diastolic CHF with CAD: Continue with current medication. Case discussed with cardiology yesterday. Patient with CAD with multiple stents and prior recent heart catheterization. No plan for cardiac intervention. Continue with medical treatment. Suspect history of atrial fibrillation as patient on chronic anti coagulation therapy: Continue with medication Acute renal injury secondary to dehydration: Patient with improvement. Diabetes mellitus type 2, uncontrolled: Continue with basal insulin. Will continue to monitor and adjust. Hypertension: Will continue with medication. Will monitor and adjust. Suspect obstructive sleep apnea: Will recommend sleep study to be done as an outpatient. Tobacco abuse: Cessation addressed. Will continue to address daily. Patient may require nicotine patch during her stay. Obesity BMI 41.8: Continue with lifestyle modification education. Time Spent Managing Pts Care (In Minutes): 55
[2018-05-31] MEDS: BENZONATATE 100 MG CAP PO PRN (17:38)
[2018-05-31] MEDS: INSULIN GLARGINE 100 UNITS/ML SQ SCH (21:05)
[2018-06-01] MEDS: IPRATROPIUM BROM 0.5MG/2.5ML NEB SCH ×4 (01:40→20:00)
[2018-06-01] MEDS: ALBUTEROL 2.5 MG/3 ML NEB SOL NEB PRN ×2 (01:40→07:44)
[2018-06-01] MEDS: LORAZEPAM 0.5 MG TABLET PO PRN ×3 (04:01→22:14)
[2018-06-01] MEDS: BENZONATATE 100 MG CAP PO PRN ×2 (04:01→22:14)
[2018-06-01 06:44] LABS: Absolute Lymphocytes (CBC) 1.8 K/uL (0.7-4.9); Absolute Monocytes 0.8 K/uL (0.1-1.3); Absolute Neutrophil 11.4 K/uL (1.8-8.0); Basophils % 0.2 % (0-1.3); Eosinophils % 0.2 % (0-4.4); Hematocrit 31.2 % (36.0-45.0); Lymphocytes % 12.9 % (15.3-44.8); MPV 9.5 fL (7.6-11.3); Monocytes % 5.6 % (3.3-12.3); RBC Red Blood Cell Count 3.68 M/uL (3.86-4.86)
[2018-06-01 06:45] LABS: Magnesium 2.3 mg/dL (1.8-2.4); Potassium 4.8 mmol/L (3.5-5.1)
[2018-06-01] MEDS ORDERED: TRAMADOL HCL 50 MG TAB PO PRN (07:36)
[2018-06-01] MEDS: ARFORMOTEROL TARTRATE 15 MCG/2 ML VIAL.NEB NEB SCH ×2 (07:44→20:00)
[2018-06-01] MEDS: AMLODIPINE 10 MG TAB PO SCH (08:37)
[2018-06-01] MEDS: ASPIRIN EC 81 MG TAB PO SCH (08:37)
[2018-06-01] MEDS: levoFLOXacin 750 MG TAB PO SCH (08:38)
[2018-06-01] MEDS: FAMOTIDINE 20 MG TAB PO SCH ×2 (08:38→22:15)
[2018-06-01] MEDS: MONTELUKAST 10 MG TAB PO SCH (08:39)
[2018-06-01] MEDS: PREGABALIN 150 MG CAP PO SCH ×2 (08:39→22:21)
[2018-06-01] MEDS: CARVEDILOL 12.5 MG TAB PO SCH ×2 (08:39→22:15)
[2018-06-01] MEDS: GUAIFENESIN 600 MG SA TAB PO SCH ×2 (08:39→22:15)
[2018-06-01] MEDS: APIXABAN 5 MG TABLET PO SCH ×2 (08:39→22:16)
[2018-06-01] MEDS: predniSONE 20 MG TAB PO SCH ×2 (08:39→22:16)
[2018-06-01] MEDS: SERTRALINE HCL 50 MG TAB PO SCH (08:47)
[2018-06-01] MEDS: INSULIN -REGULAR HUMAN 50 UNIT/0.5 ML ML SQ SCH ×4 (08:48→22:16)
--- NOTE | 2018-06-01 09:58 | P.PN ---
Subjective Date of Service: 06/01/18 Primary Care Provider: Dr. Ugarte([facility]); Cardiology-Dr. Villa Chief Complaint: Shortness of breath Subjective: Other (Patient is slowly improving. Patient on BiPAP this morning.) Physical Examination - Vital Signs Temperature: 97.7 F Blood Pressure: 150/72 Pulse: 62 Respirations: 24 Pulse Ox (%): 96 - Physical Exam General: Alert, In no apparent distress, Oriented x3, Cooperative HEENT: Atraumatic Neck: Supple Respiratory: Expiratory wheezes, Inspiratory wheezes Cardiovascular: Normal pulses, Regular rate/rhythm Gastrointestinal: Normal bowel sounds, Soft and benign, Non-distended, No masses , No rebound, No guarding Musculoskeletal: No erythema, No tenderness, No warmth Integumentary: No tenderness/swelling, No erythema, No warmth, No cyanosis Neurological: Normal speech, Normal strength at 5/5 x4 extr, Normal tone, Normal affect - Studies Medications List Reviewed: Yes Assessment & Plan Discharge Plan: Other (residential facility) Plan to discharge in: 24 Hours Physician Review Additional Text: Impression: Acute on chronic respiratory failure secondary to COPD exacerbation complicated with right-sided pneumonia failed outpatient therapy Elevated troponin likely from acute respiratory failure possible NSTEMI suspect history of chronic diastolic CHF with CAD Suspect history of atrial fibrillation as patient on chronic anti coagulation therapy Acute renal injury secondary to dehydration Diabetes mellitus type 2, uncontrolled Hypertension Suspect obstructive sleep apnea Tobacco abuse Obesity BMI 41.8 Plan: Acute on chronic respiratory failure secondary to COPD exacerbation complicated with right-sided pneumonia failed outpatient therapy: Continue with current regimen of antibiotic therapy and oral steroid. Continue with COPD treatment. Continue to wean off BiPAP. Patient may require noninvasive ventilator at discharge. Will discuss with pulmonology. Continue with physical therapy as patient agreeable to skilled placement. Social work to help in this process. Await approval for skilled placement. I will turn the service over to Dr. Alexander tomorrow. I will go over the plan of care with her. Elevated troponin likely from acute respiratory failure possible NSTEMI suspect history of chronic diastolic CHF with CAD: Continue with current medication. Case discussed with cardiology yesterday. Patient with CAD with multiple stents and prior recent heart catheterization. No plan for cardiac intervention. Continue with medical treatment. Suspect history of atrial fibrillation as patient on chronic anti coagulation therapy: Continue with medication Acute renal injury secondary to dehydration: Patient with improvement. Diabetes mellitus type 2, uncontrolled: A1c 8.2. Continue to adjust basal insulin. Will continue to monitor and adjust. Hypertension: Will continue with medication. Will monitor and adjust. Suspect obstructive sleep apnea: Will recommend sleep study to be done as an outpatient. Tobacco abuse: Cessation addressed. Will continue to address daily. Patient may require nicotine patch during her stay. Obesity BMI 41.8: Continue with lifestyle modification education. Time Spent Managing Pts Care (In Minutes): 55
--- NOTE | 2018-06-01 10:55 | P.PN ---
Subjective Date of Service: 06/04/18 Primary Care Provider: Dr. Ugarte([facility]); Cardiology-Dr. Villa Chief Complaint: COPD exacerbation Patient is complaining of severe persistent cough no improvement since admission history of COPD recently moved from [place] as never seen a mineral mixer was treated by her primary care physician with Advair patient ran out of the medication continues to smoke off a pack a day she has severe discomfort from her coughing no prior history of obstructive sleep apnea Review of Systems General: Weakness Respiratory: Cough, Shortness of Breath Physical Examination - Vital Signs Temperature: 97.7 F Blood Pressure: 150/72 Pulse: 62 Respirations: 24 Pulse Ox (%): 96 - Physical Exam General: Alert, Moderate distress Respiratory: Expiratory wheezes Cardiovascular: No edema, Regular rate/rhythm - Studies Medications List Reviewed: Yes Assessment & Plan - Problems (Diagnosis) (1) COPD exacerbation Current Visit: Yes Status: Acute Plan: Patient is 58 years of age active smoker history of COPD admitted with an exacerbation. Complains of severe persistent cough I did promethazine with codeine on a scheduled basis patient's white count was elevated not declining blood pressure is mildly elevated possible she could had a pneumonia continue with levofloxacin Adrien echocardiogram with Doppler she may have diastolic dysfunction I have added low-dose of spironolactone continue with bronchodilators I have also added Dalresp patient is mildly hypoxic and hypercapnic Physician Review Additional Text: I
[2018-06-01] MEDS: ROFLUMILAST 500 MCG TABLET PO SCH (11:00)
[2018-06-01] MEDS: PROMETHAZINE-DM 5 ML OSYR PO SCH ×2 (11:25→17:14)
[2018-06-01] MEDS: SPIRONOLACTONE 25 MG TABLET PO SCH ×2 (11:43→22:15)
[2018-06-01] MEDS: HYDROCODONE/APAP 7.5/325 MG TAB PO PRN ×2 (15:50→22:14)
[2018-06-01] MEDS: INSULIN GLARGINE 100 UNITS/ML SQ SCH (22:17)
[2018-06-02] MEDS: PROMETHAZINE-DM 5 ML OSYR PO SCH ×4 (00:03→17:12)
[2018-06-02] MEDS: IPRATROPIUM BROM 0.5MG/2.5ML NEB SCH ×4 (02:00→20:00)
[2018-06-02] MEDS: HYDROCODONE/APAP 7.5/325 MG TAB PO PRN (04:00)
[2018-06-02] MEDS: BENZONATATE 100 MG CAP PO PRN ×3 (04:26→20:42)
[2018-06-02 04:29] LABS: Absolute Lymphocytes (CBC) 1.5 K/uL (0.7-4.9); Absolute Monocytes 0.8 K/uL (0.1-1.3); Absolute Neutrophil 12.3 K/uL (1.8-8.0); Basophils % 0.4 % (0-1.3); Eosinophils % 0.4 % (0-4.4); Hematocrit 32.8 % (36.0-45.0); Lymphocytes % 10.2 % (15.3-44.8); MPV 9.7 fL (7.6-11.3); Monocytes % 5.4 % (3.3-12.3); RBC Red Blood Cell Count 3.87 M/uL (3.86-4.86)
[2018-06-02 04:46] LABS: Magnesium 2.3 mg/dL (1.8-2.4); Potassium 5.5 mmol/L (3.5-5.1)
[2018-06-02] MEDS: LORAZEPAM 0.5 MG TABLET PO PRN (06:24)
[2018-06-02] MEDS: ARFORMOTEROL TARTRATE 15 MCG/2 ML VIAL.NEB NEB SCH ×2 (07:40→20:00)
--- NOTE | 2018-06-02 08:33 | P.PN ---
Subjective Date of Service: 06/04/18 Primary Care Provider: Dr. Ugarte([facility]); Cardiology-Dr. Villa Chief Complaint: COPD exacerbation No change since yesterday still complaining of severe persistent cough still short of breath Review of Systems General: Weakness Respiratory: Cough, Shortness of Breath Physical Examination - Vital Signs Temperature: 98 F Blood Pressure: 146/62 Pulse: 61 Respirations: 16 Pulse Ox (%): 93 - Physical Exam General: Alert, In no apparent distress HEENT: Atraumatic Neck: Supple Respiratory: Expiratory wheezes Cardiovascular: No edema, Regular rate/rhythm - Studies Medications List Reviewed: Yes Assessment & Plan - Problems (Diagnosis) (1) COPD exacerbation Current Visit: Yes Status: Acute Plan: Patient is 58 years of age admitted with COPD exacerbation no significant change since yesterday complaining of severe persistent cough I have added Tylenol with codeine on a scheduled basis blood pressures under control patient is on maximum bronchodilator therapy
[2018-06-02] MEDS: INSULIN -REGULAR HUMAN 50 UNIT/0.5 ML ML SQ SCH ×4 (08:40→21:48)
[2018-06-02] MEDS: levoFLOXacin 750 MG TAB PO SCH (08:42)
[2018-06-02] MEDS: predniSONE 20 MG TAB PO SCH ×2 (08:42→20:40)
[2018-06-02] MEDS: FAMOTIDINE 20 MG TAB PO SCH ×2 (08:42→20:41)
[2018-06-02] MEDS: MONTELUKAST 10 MG TAB PO SCH (08:42)
[2018-06-02] MEDS: GUAIFENESIN 600 MG SA TAB PO SCH ×2 (08:42→20:41)
[2018-06-02] MEDS: SPIRONOLACTONE 25 MG TABLET PO SCH (08:43)
[2018-06-02] MEDS: AMLODIPINE 10 MG TAB PO SCH (08:43)
[2018-06-02] MEDS: ASPIRIN EC 81 MG TAB PO SCH (08:43)
[2018-06-02] MEDS: APIXABAN 5 MG TABLET PO SCH ×2 (08:44→20:41)
[2018-06-02] MEDS: CARVEDILOL 12.5 MG TAB PO SCH ×2 (08:44→20:41)
[2018-06-02] MEDS: CODEINE 30MG/APAP 300MG TAB PO SCH ×3 (09:08→20:41)
[2018-06-02] MEDS: SERTRALINE HCL 50 MG TAB PO SCH (09:08)
[2018-06-02] MEDS: PREGABALIN 150 MG CAP PO SCH ×2 (09:08→20:42)
[2018-06-02] MEDS: ROFLUMILAST 500 MCG TABLET PO SCH (09:08)
[2018-06-02 12:04] LABS: Arterial Blood Carboxyhemoglob 1.2 % (0-1.5); Blood Gas Oxyhemoglobin 88.7 % (94-97); Blood O2 Saturation 90.9 % (92-98.5)
--- NOTE | 2018-06-02 13:32 | ECHO ---
HEIGHT: 5 ft 6 in WEIGHT: 259 lb 15.858 oz DATE OF STUDY: 06/02/[address]: Omar Renee MD 2-DIMENSIONAL: YES M.MODE: YES DOPPLER: YES COLOR FLOW: YES TDS: NO PORTABLE: NO DEFINITY: NO BUBBLE STUDY: NO DIAGNOSIS: SHORTNESS OF BREATH CARDIAC HISTORY: CATHERIZATION: NO SURGERY: NO PROSTHETIC VALVE: NO PACEMAKER: NO MEASUREMENTS (cm) DIASTOLIC (NORMALS) SYSTOLIC (NORMALS) IVSd 1.6 (0.6-1.2) LA Diam 5.6 (1.9-4.0) LVEF 65% LVIDd 5.5 (3.5-5.7) LVIDs 3.5 (2.0-3.5) %FS 36% LVPWd 2.0 (0.6-1.2) Ao Diam 2.8 (2.0-3.7) 2 DIMENSIONAL ASSESSMENT: RIGHT ATRIUM: NORMAL LEFT ATRIUM: DILATED RIGHT VENTRICLE: NORMAL LEFT VENTRICLE: LEFT VENTRICULAR HYPERTROPHY TRICUSPID VALVE: NORMAL MITRAL VALVE: NORMAL PULMONIC VALVE: NORMAL AORTIC VALVE: NORMAL PERICARDIAL EFFUSION: NONE AORTIC ROOT: NORMAL LEFT VENTRICULAR WALL MOTION: NORMAL. DOPPLER/COLOR FLOW: IMPAIRED LEFT VENTRICULAR RELAXATION. COMMENTS: NORMAL LEFT VENTRICULAR EJECTION FRACTION. LEFT VENTRICULAR HYPERTROPHY. DILATED LEFT ATRIUM. IMPAIRED LEFT VENTRICULAR RELAXATION. TECHNOLOGIST: MARIA G BOONE
[2018-06-02] MEDS ORDERED: SOD POLYSTYREN SUL 15 GM/60 ML UCUP PO ONE (13:48)
[2018-06-02] MEDS: HYDRALAZINE HCL 20 MG/ML VIAL IV PRN (17:11)
--- NOTE | 2018-06-02 18:43 | PN ---
Date of Progress Note: 06/02/2018 Subjective: The patient seen and examined, chart reviewed and case discussed with RN. The patient is having echocardiogram today. States her breathing is better. Medications: List reviewed. Objective: Vital Signs: Temperature 98.7, heart rate 67, blood pressure 142/74 , respirations 20, O2 97% on 2 L via nasal cannula. The patient tolerating being off BiPAP. General: Obese female, in mild respiratory distress, ill-appearing. CV: S1, S2. Regular rate and rhythm. Peripheral pulses present. Respiratory: Diminished breath sounds. Some wheezing heard. No stridor, use of accessory muscles. Gastrointestinal: Abdomen is soft, nontender, nondistended. Positive bowel sounds. Extremities: No clubbing, cyanosis, or edema. Neurologic: Nonfocal. Laboratory Data: Sodium 143, potassium 5.5, chloride 107, CO2 32, BUN 28, creatinine 0.97, glucose 177, calcium 8, magnesium 2.3, lactate 1.6. WBC 14.7, H and H 10.4 and 32.8, platelets 272, neutrophils 83%. Blood cultures, no growth to date. Sputum cultures are pending. Urine cultures, no growth, final. Assessment: A 58-year-old female with: 1. Acute on chronic respiratory failure secondary to chronic obstructive pulmonary disease exacerbation. The patient still requiring BiPAP intermittently. Currently on nasal cannula while she is getting an echocardiogram. 2. Acute chronic obstructive pulmonary disease exacerbation. We will continue with breathing treatments. Wean off steroids. Appreciate Pulmonology input. 3. Right-sided pneumonia, failed outpatient therapy. 4. Elevated troponin from acute respiratory failure, possible non-ST- elevation myocardial infarction. No chest pain. 5. Possible chronic diastolic heart failure. 6. Coronary artery disease, yocha dehe artery and yocha dehe heart, without angina. The patient has had multiple stents and prior heart catheterization. No plans for cardiac intervention at this time. Appreciate Cardiology input. 7. Acute kidney injury secondary to acute dehydration, prerenal azotemia, improved with IV fluids. 8. Paroxysmal atrial fibrillation. The patient is on chronic anticoagulation therapy. We will continue. 9. Diabetes mellitus type 2 with hyperglycemia with long-term use of insulin. Continue to monitor blood glucose levels. Hemoglobin A1c is 8.2%. Adjust basal insulin as needed. 10. Essential hypertension, stable. 11. Likely obstructive sleep apnea. The patient will need sleep study as an outpatient. 12. Nicotine dependence with cigarette smoking, continuous. Continue nicotine patch, counseled. 13. Morbid obesity, body mass index 41.8, counseled. 14. Deep venous thrombosis prophylaxis, addressed. 15. Hyperkalemia: reduce dose of aldactone. Kayexelate Plan: Follow up on echocardiogram. If abnormal, we will reach out to Cardiology to discuss any intervention. The patient has been switched to oral antibiotics. Continue to wean off BiPAP. Likely discharge in the next 24-48 hours. The patient may need noninvasive vent as outpatient. /ARTEM Voice ID: [id number] Report ID: [id number] GABRIEL
[2018-06-02] MEDS: INSULIN GLARGINE 100 UNITS/ML SQ SCH (21:48)
[2018-06-03] MEDS: PROMETHAZINE-DM 5 ML OSYR PO SCH ×4 (00:07→18:03)
[2018-06-03] MEDS: HYDROCODONE/APAP 7.5/325 MG TAB PO PRN ×2 (00:09→12:42)
[2018-06-03] MEDS: IPRATROPIUM BROM 0.5MG/2.5ML NEB SCH ×4 (02:00→20:00)
[2018-06-03] MEDS: CODEINE 30MG/APAP 300MG TAB PO SCH ×4 (03:47→21:12)
[2018-06-03 04:42] LABS: Absolute Lymphocytes (CBC) 1.8 K/uL (0.7-4.9); Absolute Monocytes 0.9 K/uL (0.1-1.3); Absolute Neutrophil 12.9 K/uL (1.8-8.0); Basophils % 0.3 % (0-1.3); Eosinophils % 0.1 % (0-4.4); Lymphocytes % 11.7 % (15.3-44.8); MPV 9.4 fL (7.6-11.3); Monocytes % 5.9 % (3.3-12.3); RBC Red Blood Cell Count 4.01 M/uL (3.86-4.86)
[2018-06-03 04:49] LABS: Magnesium 2.4 mg/dL (1.8-2.4)
[2018-06-03 05:49] LABS: Blood Morphology Comment NOT SEEN (NOT SEEN); Platelet Estimate ADEQ
[2018-06-03] MEDS: INSULIN -REGULAR HUMAN 50 UNIT/0.5 ML ML SQ SCH ×4 (07:30→21:12)
[2018-06-03] MEDS: ARFORMOTEROL TARTRATE 15 MCG/2 ML VIAL.NEB NEB SCH ×2 (08:30→20:00)
[2018-06-03] MEDS: PREGABALIN 150 MG CAP PO SCH ×2 (09:07→21:11)
[2018-06-03] MEDS: ROFLUMILAST 500 MCG TABLET PO SCH (09:08)
[2018-06-03] MEDS: BENZONATATE 100 MG CAP PO PRN (09:08)
[2018-06-03] MEDS: GUAIFENESIN 600 MG SA TAB PO SCH ×2 (09:08→21:14)
[2018-06-03] MEDS: MONTELUKAST 10 MG TAB PO SCH (09:09)
[2018-06-03] MEDS: AMLODIPINE 10 MG TAB PO SCH (09:09)
[2018-06-03] MEDS: levoFLOXacin 750 MG TAB PO SCH (09:10)
[2018-06-03] MEDS: predniSONE 20 MG TAB PO SCH ×2 (09:10→21:12)
[2018-06-03] MEDS: SPIRONOLACTONE 25 MG TABLET PO SCH (09:10)
[2018-06-03] MEDS: ASPIRIN EC 81 MG TAB PO SCH (09:10)
[2018-06-03] MEDS: APIXABAN 5 MG TABLET PO SCH ×2 (09:11→21:14)
[2018-06-03] MEDS: FAMOTIDINE 20 MG TAB PO SCH ×2 (09:11→21:12)
[2018-06-03] MEDS: SERTRALINE HCL 50 MG TAB PO SCH (09:11)
[2018-06-03] MEDS: CARVEDILOL 12.5 MG TAB PO SCH ×2 (09:11→21:12)
[2018-06-03] MEDS: HYDRALAZINE HCL 20 MG/ML VIAL IV PRN (16:15)
[2018-06-03] MEDS: INSULIN GLARGINE 100 UNITS/ML SQ SCH (21:00)
--- NOTE | 2018-06-03 21:31 | P.PN ---
Subjective Date of Service: 06/03/18 Primary Care Provider: Dr. Ugarte([facility]); Cardiology-Dr. Villa Chief Complaint: COPD exacerbation Subjective: Improving Patient seen and examined at bedside. Chart reviewed and case discussed with nursing staff. Improved breathing, no Bi-PAP overnight. Still complaining of cough Review of Systems 10-point ROS is otherwise unremarkable Physical Examination - Vital Signs Temperature: 98 F Blood Pressure: 157/65 Pulse: 80 Respirations: 24 Pulse Ox (%): 97 - Physical Exam General: Alert, In no apparent distress HEENT: Atraumatic, PERRLA, EOMI Neck: Supple, JVD not distended Respiratory: Clear to auscultation bilaterally, Normal air movement Cardiovascular: Regular rate/rhythm, Normal S1 S2 Gastrointestinal: Normal bowel sounds, No tenderness Musculoskeletal: No tenderness Integumentary: No rashes Neurological: Normal speech, Normal tone, Normal affect Lymphatics: No axilla or inguinal lymphadenopathy - Studies Microbiology Data (last 24 hrs): 05/29/18 06:30 Blood - Blood Aerobic Blood Culture - Final 05/29/18 06:30 Blood - Blood Anaerobic Blood Culture - Final No growth in 5 days. 05/29/18 07:20 Blood - Blood Aerobic Blood Culture - Final No growth in 5 days. 05/29/18 07:20 Blood - Blood Anaerobic Blood Culture - Final No growth in 5 days. Medications List Reviewed: Yes Assessment And Plan - Plan A 58-year-old female with: 1. Acute on chronic respiratory failure secondary to chronic obstructive pulmonary disease exacerbation. The patient now off of BiPAP, currently on 2 L NC (home oxygen) 2. Acute chronic obstructive pulmonary disease exacerbation. We will continue with breathing treatments. Wean off steroids. Appreciate Pulmonology input. 3. Right-sided pneumonia, failed outpatient therapy. Transitioned to PO antibiotics, continue. 4. Elevated troponin from acute respiratory failure, possible non-ST- elevation myocardial infarction. No chest pain. 5. Chronic diastolic heart failure. ECHO with preserved EF of 65% but dilated atria. 6. Coronary artery disease, [place] artery and [place]ka heart, without angina. The patient has had multiple stents and prior heart catheterization. No plans for cardiac intervention at this time. Appreciate Cardiology input. 7. Acute kidney injury secondary to acute dehydration, prerenal azotemia, Resolved with IV fluids. 8. Paroxysmal atrial fibrillation. The patient is on chronic anticoagulation therapy. We will continue. 9. Diabetes mellitus type 2 with hyperglycemia with long-term use of insulin. Continue to monitor blood glucose levels. Hemoglobin A1c is 8.2%. Adjust basal insulin as needed. 10. Essential hypertension, stable. 11. Likely obstructive sleep apnea. The patient will need sleep study as an outpatient. 12. Nicotine dependence with cigarette smoking, continuous. Continue nicotine patch, counseled. 13. Morbid obesity, body mass index 41.8, counseled. 14. Deep venous thrombosis prophylaxis, addressed. Plan: Social work consulted for SNF placement, pending. Likely discharge once set up.
[2018-06-04] MEDS: PROMETHAZINE-DM 5 ML OSYR PO SCH ×5 (00:48→23:37)
[2018-06-04] MEDS: HYDROCODONE/APAP 7.5/325 MG TAB PO PRN (00:48)
[2018-06-04] MEDS: IPRATROPIUM BROM 0.5MG/2.5ML NEB SCH ×4 (02:00→20:00)
[2018-06-04] MEDS: CODEINE 30MG/APAP 300MG TAB PO SCH ×4 (05:02→23:36)
[2018-06-04] MEDS: INSULIN -REGULAR HUMAN 50 UNIT/0.5 ML ML SQ SCH ×4 (07:30→21:06)
[2018-06-04] MEDS: ARFORMOTEROL TARTRATE 15 MCG/2 ML VIAL.NEB NEB SCH ×2 (08:02→20:00)
[2018-06-04] MEDS: levoFLOXacin 750 MG TAB PO SCH (08:20)
[2018-06-04] MEDS: AMLODIPINE 10 MG TAB PO SCH (08:20)
[2018-06-04] MEDS: MONTELUKAST 10 MG TAB PO SCH (08:20)
[2018-06-04] MEDS: PREGABALIN 150 MG CAP PO SCH ×2 (08:20→21:04)
[2018-06-04] MEDS: predniSONE 20 MG TAB PO SCH ×2 (08:20→21:04)
[2018-06-04] MEDS: FAMOTIDINE 20 MG TAB PO SCH ×2 (08:21→21:04)
[2018-06-04] MEDS: SPIRONOLACTONE 25 MG TABLET PO SCH (08:21)
[2018-06-04] MEDS: CARVEDILOL 12.5 MG TAB PO SCH ×2 (08:21→21:03)
[2018-06-04] MEDS: APIXABAN 5 MG TABLET PO SCH ×2 (08:22→21:04)
[2018-06-04] MEDS: ASPIRIN EC 81 MG TAB PO SCH (08:22)
[2018-06-04] MEDS: GUAIFENESIN 600 MG SA TAB PO SCH ×2 (08:22→21:04)
[2018-06-04] MEDS: ROFLUMILAST 500 MCG TABLET PO SCH (08:22)
[2018-06-04] MEDS: SERTRALINE HCL 50 MG TAB PO SCH (08:23)
--- NOTE | 2018-06-04 12:40 | P.PN ---
Subjective Date of Service: 06/04/18 Primary Care Provider: Dr. Ugarte([facility]); Cardiology-Dr. Villa Chief Complaint: COPD exacerbation Patient is doing better cough has improved patient has oxygen at home and inhalers Review of Systems General: Weakness Respiratory: Cough, Shortness of Breath Physical Examination - Vital Signs Temperature: 98 F Blood Pressure: 146/62 Pulse: 61 Respirations: 16 Pulse Ox (%): 93 - Physical Exam General: Alert, Oriented x3 HEENT: Atraumatic Neck: Supple Respiratory: Expiratory wheezes Cardiovascular: No edema, Regular rate/rhythm - Studies Microbiology Data (last 24 hrs): 05/29/18 06:30 Blood - Blood Aerobic Blood Culture - Final 05/29/18 06:30 Blood - Blood Anaerobic Blood Culture - Final No growth in 5 days. Medications List Reviewed: Yes Assessment & Plan - Problems (Diagnosis) (1) COPD exacerbation Current Visit: Yes Status: Acute Plan: Patient is 58 years of age admitted with COPD exacerbation she has oxygen at home these review were inhaler less from home I have advised the nursing staff to update the list be discharged home on low-dose prednisone 10 mg twice a day for 7 days I have also sent in a prescription in for Dalresp Discharge Plan: Home Physician Review Additional Text: I
[2018-06-04] MEDS: BENZONATATE 100 MG CAP PO PRN (21:05)
[2018-06-04] MEDS: INSULIN GLARGINE 100 UNITS/ML SQ SCH (21:06)
--- NOTE | 2018-06-04 22:20 | P.PN ---
Subjective Date of Service: 06/04/18 Primary Care Provider: Dr. Ugarte([facility]); Cardiology-Dr. Villa Chief Complaint: COPD exacerbation Subjective: No C/O voiced, Improving Patient seen and examined at bedside. Chart reviewed and case discussed with nursing staff. Improved breathing, no Bi-PAP overnight. Review of Systems 10-point ROS is otherwise unremarkable Physical Examination - Vital Signs Temperature: 97.6 F Blood Pressure: 157/62 Pulse: 63 Respirations: 20 Pulse Ox (%): 95 - Physical Exam General: Alert, In no apparent distress, Oriented x3 HEENT: Atraumatic, PERRLA, EOMI Neck: Supple, JVD not distended Respiratory: Clear to auscultation bilaterally, Normal air movement Cardiovascular: Regular rate/rhythm, Normal S1 S2 Gastrointestinal: Normal bowel sounds, No tenderness Musculoskeletal: No tenderness Integumentary: No rashes Neurological: Normal speech, Normal tone, Normal affect Lymphatics: No axilla or inguinal lymphadenopathy - Studies Medications List Reviewed: Yes Assessment And Plan - Plan A 58-year-old female with: 1. Acute on chronic respiratory failure secondary to chronic obstructive pulmonary disease exacerbation. The patient now off of BiPAP, currently on 2 L NC (home oxygen) 2. Acute chronic obstructive pulmonary disease exacerbation. We will continue with breathing treatments. Wean off steroids. Appreciate Pulmonology input. 3. Right-sided pneumonia, failed outpatient therapy. Transitioned to PO antibiotics, continue. 4. Elevated troponin from acute respiratory failure, possible non-ST- elevation myocardial infarction. No chest pain. 5. Chronic diastolic heart failure. ECHO with preserved EF of 65% but dilated atria. 6. Coronary artery disease, [place] artery and [place] heart, without angina. The patient has had multiple stents and prior heart catheterization. No plans for cardiac intervention at this time. Appreciate Cardiology input. 7. Acute kidney injury secondary to acute dehydration, prerenal azotemia, Resolved with IV fluids. 8. Paroxysmal atrial fibrillation. The patient is on chronic anticoagulation therapy. We will continue. 9. Diabetes mellitus type 2 with hyperglycemia with long-term use of insulin. Continue to monitor blood glucose levels. Hemoglobin A1c is 8.2%. Adjust basal insulin as needed. 10. Essential hypertension, stable. 11. Likely obstructive sleep apnea. The patient will need sleep study as an outpatient. 12. Nicotine dependence with cigarette smoking, continuous. Continue nicotine patch, counseled. 13. Morbid obesity, body mass index 41.8, counseled. 14. Deep venous thrombosis prophylaxis, addressed. Plan: Social work consulted for SNF placement, pending. Likely discharge once set up.
[2018-06-05] MEDS: IPRATROPIUM BROM 0.5MG/2.5ML NEB SCH ×3 (02:00→15:04)
[2018-06-05] MEDS: CODEINE 30MG/APAP 300MG TAB PO SCH ×3 (05:29→17:39)
[2018-06-05] MEDS: PROMETHAZINE-DM 5 ML OSYR PO SCH ×3 (05:29→17:40)
[2018-06-05] MEDS ORDERED: LOSARTAN POTASSIUM 50 MG TABLET PO SCH (06:00)
[2018-06-05] MEDS: INSULIN -REGULAR HUMAN 50 UNIT/0.5 ML ML SQ SCH ×3 (07:30→17:39)
[2018-06-05] MEDS: ARFORMOTEROL TARTRATE 15 MCG/2 ML VIAL.NEB NEB SCH (07:59)
[2018-06-05] MEDS: PREGABALIN 150 MG CAP PO SCH (10:11)
[2018-06-05] MEDS: predniSONE 20 MG TAB PO SCH (10:12)
[2018-06-05] MEDS: SPIRONOLACTONE 25 MG TABLET PO SCH (10:12)
[2018-06-05] MEDS: AMLODIPINE 10 MG TAB PO SCH (10:12)
[2018-06-05] MEDS: levoFLOXacin 750 MG TAB PO SCH (10:13)
[2018-06-05] MEDS: MONTELUKAST 10 MG TAB PO SCH (10:13)
[2018-06-05] MEDS: CARVEDILOL 12.5 MG TAB PO SCH (10:13)
[2018-06-05] MEDS: FAMOTIDINE 20 MG TAB PO SCH (10:13)
[2018-06-05] MEDS: GUAIFENESIN 600 MG SA TAB PO SCH (10:13)
[2018-06-05] MEDS: ASPIRIN EC 81 MG TAB PO SCH (10:14)
[2018-06-05] MEDS: SERTRALINE HCL 50 MG TAB PO SCH (10:21)
[2018-06-05] MEDS: APIXABAN 5 MG TABLET PO SCH (10:21)
[2018-06-05] MEDS: ROFLUMILAST 500 MCG TABLET PO SCH (10:21)
--- NOTE | 2018-06-05 18:15 | P.DS ---
Admission Date: 05/29/18 Discharge Date: 06/05/18 Primary Care Provider: Dr. Ugarte([facility]); Cardiology-Dr. Villa Disposition: TRANSFER TO HALF-WAY Discharge Condition: FAIR Reason for Admission: COPD exacerbation Vital Signs/Physical Exam: Temp Pulse Resp BP Pulse Ox 98.6 F 72 20 143/63 H 96 06/05/18 16:00 06/05/18 16:00 06/05/18 16:00 06/05/18 16:00 06/05/18 16:00 Laboratory Data at Discharge: WBC 15.7 K/uL (4.3-10.9) H 06/03/18 04:03 Hgb 10.8 g/dL (12.0-15.0) L 06/03/18 04:03 Hct 34.0 % (36.0-45.0) L 06/03/18 04:03 Plt Count 324 K/uL (152-406) 06/03/18 04:03 PT 11.1 SECONDS (9.5-12.5) 05/29/18 06:30 INR 0.94 05/29/18 06:30 Sodium 144 mmol/L (136-145) 06/03/18 04:03 Potassium 5.0 mmol/L (3.5-5.1) 06/03/18 04:03 BUN 26 mg/dL (7-18) H 06/03/18 04:03 Creatinine 0.93 mg/dL (0.55-1.3) 06/03/18 04:03 Glucose 157 mg/dL (74-106) H 06/03/18 04:03 Magnesium 2.4 mg/dL (1.8-2.4) 06/03/18 04:03 Total Bilirubin 0.3 mg/dL (0.2-1.0) 05/29/18 06:30 AST 45 U/L (15-37) H 05/29/18 06:30 ALT 63 U/L (12-78) 05/29/18 06:30 Alkaline Phosphatase 158 U/L (45-117) H 05/29/18 06:30 Troponin I 0.37 ng/mL (0.0-0.045) H 05/29/18 20:02 Triglycerides 128 mg/dL (<150) 05/30/18 05:09 Cholesterol 233 mg/dL (<200) H 05/30/18 05:09 HDL Cholesterol 47 mg/dL (40-60) 05/30/18 05:09 Cholesterol/HDL Ratio 4.96 05/30/18 05:09 Home Medications: Amlodipine Besylate 10 mg PO DAILY 05/29/18 Apixaban [Eliquis] 5 mg PO BID 05/29/18 Aspirin [Aspirin EC 81 MG] 81 mg PO DAILY 05/29/18 Carvedilol 12.5 mg PO BID 05/29/18 Furosemide 20 mg PO DAILY 05/29/18 Metformin HCl [Glucophage*] 1,000 mg PO BID 05/29/18 Montelukast Sodium 1 tab PO DAILY 05/29/18 Pregabalin [Lyrica] 300 mg PO BID 05/29/18 Sertraline HCl 50 mg PO DAILY 05/29/18 predniSONE [Prednisone] 1 tab PO DAILY MDD 5 days 05/29/18 Roflumilast [Daliresp*] 500 mcg PO DAILY #30 tablet 06/04/18 New Medications: Roflumilast [Daliresp*] 500 mcg PO DAILY #30 tablet Patient Discharge Instructions: Please follow up with the primary care physician in 2 days after discharge. Please follow up with pulmonology in 2 weeks. Diet: AHA Activity: Ad dwayne Followup: Omar Renee MD [ACTIVE - CAN ADMIT] - 1-2 Weeks (call to schedule an appointment)
== END 2018-06-05 18:26 | DRG 193 ==
LOC: ER 06:31 → EDBD 06:31 → ERHOLD 08:40 → 3RD-ICU 10:05 → 4TH 05-30 11:10
PROVIDERS: ADMIT Family Medicine; ATTEND Family Medicine
PROC: 5A09557 Assistance with Respiratory Ventilation, Greater than 96 Consecutive Hours, Continuous Positive Airway Pressure (ICD-10-PCS; principal; 2018-05-29)
DX: J18.1 Lobar pneumonia, unspecified organism (principal); J96.21 Acute and chronic respiratory failure with hypoxia; I21.4 Non-ST elevation (NSTEMI) myocardial infarction; J44.1 Chronic obstructive pulmonary disease with (acute) exacerbation; N17.9 Acute kidney failure, unspecified; E87.2 Acidosis; Z68.41 Body mass index [BMI] 40.0-44.9, adult; I50.32 Chronic diastolic (congestive) heart failure; J44.0 Chronic obstructive pulmonary disease with (acute) lower respiratory infection; F17.210 Nicotine dependence, cigarettes, uncomplicated; Z79.01 Long term (current) use of anticoagulants; I25.10 Atherosclerotic heart disease of native coronary artery without angina pectoris; E86.0 Dehydration; E11.65 Type 2 diabetes mellitus with hyperglycemia; G47.33 Obstructive sleep apnea (adult) (pediatric); R79.89 Other specified abnormal findings of blood chemistry; I11.0 Hypertensive heart disease with heart failure; Z95.5 Presence of coronary angioplasty implant and graft; Z79.4 Long term (current) use of insulin; I48.0 Paroxysmal atrial fibrillation; E66.01 Morbid (severe) obesity due to excess calories; E87.5 Hyperkalemia
CPT/HCPCS: 36415; 71045; 80048; 80061; 80076; 80202; 81003; 82550; 82553; 82805; 82962; 83036; 83605; 83735; 83880; 84145; 84439; 84443; 84484; 85025; 85610; 87040; 87086; 87088; 87205; 93005; 93306; 94640; 94660; 94760; 97116; 97162; 97530; 99291; 99292; J0360; J0456; J0692; J0696; J1940; J7030; J7512; J7605

== ENCOUNTER 2018-09-12 16:25 | Emergency (ER) | payer MEDICARE ==
--- OUTSIDE RECORDS SUMMARY | 2018-09-12 16:29 | XMS REPORT | Clinical Summary ---
:1960 Author Organization [facility] Address [address] [place] [address] Care Team Providers Name Role Phone María Ugarte MD Primary Care Provider Allergies No Known Allergies Medications Medication Sig Dispensed Refills Start Date End Date Status pregabalin (LYRICA) Take 300 mg by 0 Active 300 MG capsule mouth 2 (two) times daily. amLODIPine (NORVASC) Take 10 mg by 0 Active 10 MG tablet mouth daily. metFORMIN Take 1,000 mg by 0 Active (GLUCOPHAGE) 1000 MG mouth 2 (two) tablet times daily with breakfast and dinner. carvedilol (COREG) Take 25 mg by 0 Active 25 MG tablet mouth 2 (two) times daily with breakfast and dinner. furosemide (LASIX) Take 40 mg by 0 Active 40 MG tablet mouth daily. clopidogrel (PLAVIX) Take 75 mg by 0 Active 75 mg tablet mouth daily. apixaban (ELIQUIS) 5 Take 5 mg by 0 Active mg Tab tablet mouth 2 (two) times daily. nitroglycerin Place 0.4 mg 0 Active (NITROSTAT) 0.4 MG under the tongue SL tablet every 5 (five) minutes as needed for Chest pain Put 1 pill under tongue every 5min as needed for chest pain.No more than 3 doses in 15min.Call 911 if pain is unrelieved 5min after 1st dose . sertraline (ZOLOFT) Take 50 mg by 0 Active 50 MG tablet mouth daily. polyethylene glycol Use daily per 0 11/21/2017 Active (GLYCOLAX) 17 gram package packet instructions. Is over the counter. predniSONE Take one tab 7 tablet 0 11/21/2017 11/26/2017 (DELTASONE) 10 MG twice a day for 2 tablet days, then one tab daily for 3 days, then stop. No more refills through my office. acetaminophen-codein Take 1 tablet by 30 tablet 0 11/21/2017 12/01/2017 e (TYLENOL #4) mouth every 4 300-60 mg per tablet (four) hours as needed for Pain for up to 10 days No more refills through my office. Active Problems Problem Noted Date AVF (arteriovenous fistula) ([facility]), Right femoral 11/21/2017 Coronary artery disease involving [place] coronary artery of [place] heart 11/21 without angina pectoris Acute on chronic diastolic (congestive) heart failure 11/21/2017 Chronic anticoagulation 11/21/2017 Non-insulin dependent type 2 diabetes mellitus 11/21/2017 COPD exacerbation 11/21/2017 Acute postoperative pain of right groin 11/20/2017 ESRD (end stage renal disease) 11/19/2017 Encounters Date Type Specialty Care Team Description 11/19/2017 Anesthesia Event Eric Payne AA 11/19/2017 Surgery Bebe, REVISION/LIGATION,Dangelo Worley, -V FISTULA 11/19/2017 - Hospital Encounter Cardiology Serge Hicks MD ESRD (end stage 11/21/2017 renal disease) ([facility]) 11/19/2017 Orders Only General Internal Medicine after 09/11/2017 Social History Tobacco Use Types Packs/Day Years Used Date Current Every Day Smoker 0.25 20 Smokeless Tobacco: Never Used Tobacco Cessation: Ready to Quit: Yes Alcohol Use Drinks/Week oz/Week Comments No Sex Assigned at Date Recorded Not on file Job Start Date Occupation Industry Not on file Not on file Not on file Travel History Travel Start Travel End No recent travel history available. Last Filed Vital Signs Vital Sign Reading Time Taken Blood Pressure 134/62 11/21/2017 7:15 AM CDT Pulse 60 11/21/2017 9:02 AM CDT Temperature 36.8 C (98.2 F) 11/21/2017 7:15 AM CDT Respiratory Rate 18 11/21/2017 9:02 AM CDT Oxygen Saturation 94% 11/21/2017 8:50 AM CDT Inhaled Oxygen Concentration - - Weight 90.4 kg (199 lb 3.2 oz) 11/21/2017 7:15 AM CDT Height 162.6 cm (5' 4") 11/19/2017 12:34 AM CDT Body Mass Index 34.19 11/21/2017 7:15 AM CDT Plan of Treatment Not on file Procedures Procedure Name Priority Date/Time Associated Comments Diagnosis RHYTHM STRIP - SCAN 11/22/2017 8:30 AM CDT POCT-GLUCOSE METER Routine 11/21/2017 7:17 Results for this AM CDT procedure are in the results section. (CELLAVISION MANUAL Routine 11/21/2017 6:12 Results for this DIFF) AM CDT procedure are in the results section. CBC W/PLT COUNT & Routine 11/21/2017 6:12 Results for this AUTO DIFFERENTIAL AM CDT procedure are in the results section. CBC W/PLT COUNT & Routine 11/21/2017 6:12 Results for this AUTO DIFFERENTIAL AM CDT procedure are in the results section. MAGNESIUM Routine 11/21/2017 6:12 Results for this AM CDT procedure are in the results section. BASIC METABOLIC PANEL Routine 11/21/2017 6:12 Results for this (7) AM CDT procedure are in the results section. POCT-GLUCOSE METER Routine 11/20/2017 9:25 Results for this PM CDT procedure are in the results section. TRANSFUSION SERVICE 11/20/2017 6:01 REPORT - SCAN PM CDT POCT-GLUCOSE METER Routine 11/20/2017 3:59 Results for this PM CDT procedure are in the results section. POCT-GLUCOSE METER Routine 11/20/2017 11:42 Results for this AM CDT procedure are in the results section. POCT-GLUCOSE METER Routine 11/20/2017 7:30 Results for this AM CDT procedure are in the results section. (CELLAVISION MANUAL Routine 11/20/2017 5:39 Results for this DIFF) AM CDT procedure are in the results section. CBC W/PLT COUNT & Routine 11/20/2017 5:39 Results for this AUTO DIFFERENTIAL AM CDT procedure are in the results section. CBC W/PLT COUNT & Routine 11/20/2017 5:39 Results for this AUTO DIFFERENTIAL AM CDT procedure are in the results section. MAGNESIUM Routine 11/20/2017 5:39 Results for this AM CDT procedure are in the results section. BASIC METABOLIC PANEL Routine 11/20/2017 5:39 Results for this (7) AM CDT procedure are in the results section. POCT-GLUCOSE METER Routine 11/19/2017 9:20 Results for this PM CDT procedure are in the results section. POCT-GLUCOSE METER Routine 11/19/2017 6:08 Results for this PM CDT procedure are in the results section. POCT-GLUCOSE METER Routine 11/19/2017 4:33 Results for this PM CDT procedure are in the results section. HGB/HCT (H&H) - STAT STAT 11/19/2017 2:27 Results for this LAB PM CDT procedure are in the results section. GLUCOSE-STAT LAB STAT 11/19/2017 2:27 Results for this PM CDT procedure are in the results section. POTASSIUM-STAT LAB STAT 11/19/2017 2:27 Results for this PM CDT procedure are in the results section. HGB/HCT (H&H) - STAT STAT 11/19/2017 1:09 Results for this LAB PM CDT procedure are in the results section. GLUCOSE-STAT LAB STAT 11/19/2017 1:09 Results for this PM CDT procedure are in the results section. POTASSIUM-STAT LAB STAT 11/19/2017 1:09 Results for this PM CDT procedure are in the results section. SODIUM NA-STAT LAB STAT 11/19/2017 1:09 Results for this PM CDT procedure are in the results section. BLOOD GAS, ARTERIAL STAT 11/19/2017 1:09 Results for this PM CDT procedure are in the results section. CALCIUM, IONIZED STAT 11/19/2017 1:09 Results for this PM CDT procedure are in the results section. RRL CRITICAL LABS STAT 11/19/2017 1:09 Results for this (ABG,NA,K,H&H,GLUCOSE PM CDT procedure are in ) the results section. REVISION/LIGATION,A-V 11/19/2017 11:01 A-V fistula (HCC) FISTULA AM CDT PLATELET AGGREGATION: STAT 11/19/2017 9:34 Results for this FUNCTION SCREEN AM CDT procedure are in the results section. POCT-GLUCOSE METER Routine 11/19/2017 7:36 Results for this AM CDT procedure are in the results section. HEMOGLOBIN A1C Routine 11/19/2017 7:07 Results for this AM CDT procedure are in the results section. ECG 12-LEAD Routine 11/19/2017 2:39 AM CDT Procedure Note - Interface, External Ris In - 11/19/2017 2:41 AM CDT Ventricular Rate 62 BPM Atrial Rate 62 BPM P-R Interval 152 ms QRS Duration 98 ms Q-T Interval 464 ms QTC Calculation(Bazett) 470 ms P [place] 12 degrees R [place] 32 degrees T [place] 88 degrees Normal sinus rhythm with sinus arrhythmia Normal ECG No previous ECGs available ECG 12-LEAD Routine 11/19/2017 2:39 AM CDT (CELLAVISION MANUAL DIFF) Routine 11/19/2017 2:16 AM CDT CBC W/PLT COUNT & AUTO Routine 11/19/2017 2:16 AM CDT Results for this DIFFERENTIAL procedure are in the results section. TYPE AND SCREEN, AUTOMATED Routine 11/19/2017 2:16 AM CDT CBC W/PLT COUNT & AUTO Routine 11/19/2017 2:16 AM CDT Results for this DIFFERENTIAL procedure are in the results section. MAGNESIUM Routine 11/19/2017 2:16 AM CDT HEPATIC FUNCTION PANEL Routine 11/19/2017 2:16 AM CDT BASIC METABOLIC PANEL (7) Routine 11/19/2017 2:16 AM CDT PROTHROMBIN TIME/INR STAT 11/19/2017 2:16 AM CDT POTASSIUM STAT 11/19/2017 2:16 AM CDT HEMOGLOBIN AND HEMATOCRIT Routine 11/19/2017 2:16 AM CDT GLUCOSE STAT 11/19/2017 2:16 AM CDT APTT STAT 11/19/2017 2:16 AM CDT POCT-GLUCOSE METER Routine 11/19/2017 12:45 AM CDT after 09/11/2017 Results RHYTHM STRIP - SCAN (11/22/2017 8:30 AM CDT) Narrative Performed At POC-Glucose meter (11/21/2017 7:17 AM CDT)Only the most recent of10 resultswithin the time period is included. POC-Glucose Meter 97Comment: TESTED AT 70 - 110 mg/dL [facility] [id number] [facility] [id number] Specimen Blood Performing Organization Address City/State/Zipcode Phone Number [facility] [address] [place], [place] [phone] CENTER Manual Differential (11/21/2017 6:12 AM CDT)Only the most recent of3 resultswithin the time period is included. % Neutros 72 % [facility] % Lymphs 18 % [facility] % Monos 6 % [facility] % Eos 1 % [facility] % Myelo 1 (H) 0 - 0 % [facility] % Bands 1 0 - 10 % [facility] % Atypical Lymphs 1 (H) 0 - 0 % [facility] # Neutros 12.60 (H) 1.56 - 6.13 K/ul [facility] # Lymphs 3.15 1.18 - 3.74 K/ul [facility] # Monos 1.05 (H) 0.24 - 0.36 K/uL [facility] # Eos 0.18 0.04 - 0.36 K/uL [facility] # Myelo 0.18 (H) 0.00 - 0.00 K/uL [facility] # Bands 0.18 0.00 - 0.80 K/uL [facility] # Atypical Lymphs 0.18 (H) 0.00 - 0.00 K/uL [facility] Total Counted 100 [facility] Platelet Morphology Normal [facility] Smudge Cells Present [facility] Hypochromia 1+ few [facility] Anisocytosis 1+ few [facility] Microcytes 1+ few [facility] Platelet Conc Adequate [facility] Specimen Blood Narrative Performed At Received comment: [facility] User comments: Slide comments: Performing Organization Address City/[facility] Phone Number [facility] [address] [place] [address] [phone] CENTER CBC with platelet count + automated diff (11/21/2017 6:12 AM CDT)Only the most recent of3 resultswithin the time period is included. WBC 17.5 (H) 3.5 - 10.5 K/L [facility] RBC 3.23 (L) 3.93 - 5.22 M/L [facility] Hemoglobin 9.0 (L) 11.2 - 15.7 GM/DL [facility] Hematocrit 29.2 (L) 34.1 - 44.9 % [facility] MCV 90.4 79.4 - 94.8 fL [facility] MCH 27.9 25.6 - 32.2 pg [facility] MCHC 30.8 (L) 32.2 - 35.5 GM/DL [facility] RDW 14.8 (H) 11.7 - 14.4 % [facility] Platelets 262 150 - 450 K/CU MM [facility] MPV 11.2 9.4 - 12.3 fL [facility] nRBC 0 0 - 0 /100 WBC [facility] Specimen Blood Performing Organization Address City/[facility] Cent[facility]ode Phone Number [facility] [address] [place] [address] CENTER Magnesium (11/21/2017 6:12 AM CDT)Only the most recent of3 resultswithin the time period is included. Magnesium 2.2 1.6 - 2.6 mg/dL [facility] Specimen Blood Performing Organization Address City/State/Zipcode Phone Number [facility] [address] [place] [address] [place] Basic metabolic panel (11/21/2017 6:12 AM CDT)Only the most recent of3 resultswithin the time period is included. Sodium 141 136 - 145 meq/L [facility] Potassium 4.0 3.5 - 5.1 meq/L [facility] Chloride 103 98 - 107 meq/L [facility] CO2 31 (H) 22 - 29 meq/L [facility] BUN 26 (H) 7 - 21 mg/dL [facility] Creatinine 0.81 0.57 - 1.25 mg/dL [facility] Glucose 91 70 - 105 mg/dL [facility] Calcium 8.8 8.4 - 10.2 mg/dL [facility] EGFR 72Comment: ESTIMATED GFR IS mL/min/1.73 sq m [facility] NOT ACCURATE CREATININE [facility] CENTER CLEARANCE IN PREDICTING GLOMERULAR FILTRATION RATE. ESTIMATED GFR IS NOT APPLICABLE FOR DIALYSIS PATIENTS. Specimen Blood Performing Organization Address City/[facility]/Zipcode Phone Number [facility] [address] [place], [place] [phone] [place] TRANSFUSION SERVICE REPORT - SCAN (11/20/2017 6:01 PM CDT) Narrative Performed At Potassium-Stat Lab (11/19/2017 2:27 PM CDT)Only the most recent of2 resultswithin the time period is included. Potassium 4.5 3.6 - 5.5 meq/L [facility] Specimen Blood, Arterial Performing Organization Address City/State/Zipcode Phone Number [facility] [address] [place] [address] [place] Glucose-Stat Lab (11/19/2017 2:27 PM CDT)Only the most recent of2 resultswithin the time period is included. Glucose 230 (H) 70 - 110 mg/dL [facility] Specimen Blood, Arterial Performing Organization Address [facility] Phone Number [address] [address] [place] HGB/HCT (H&H)-Stat Lab (11/19/2017 2:27 PM CDT)Only the most recent of2 resultswithin the time period is included. Hemoglobin 11.3 (L) 12.0 - 15.0 g/dL [facility] Hematocrit 33.0 (L) 36.0 - 45.0 % [facility] Specimen Blood, Arterial Performing Organization Address [facility] Phone Number [address] [address] [phone] [place] Sodium Na-Stat Lab (11/19/2017 1:09 PM CDT) Sodium 139 135 - 148 meq/L [facility] Specimen Blood, Arterial Performing Organization Address [facility] Phone Number [address] [address] [phone] [place] Calcium, Ionized (11/19/2017 1:09 PM CDT) Calcium, Ion 1.05 (L) 1.12 - 1.27 mmol/L [facility] pH, Blood 7.37 [facility] Specimen Blood Performing Organization Address [facility] Phone Number [address] [address] [phone] [place] Blood gas, arterial (11/19/2017 1:09 PM CDT) pH, Arterial 7.39 7.35 - 7.45 [facility] pCO2, Arterial 52 (H) 35 - 45 mmHg [facility] pO2, Arterial 66 (L) 80 - 90 mmHg [facility] O2 Sat, Arterial 93.4 (L) 96.0 - 97.0 % [facility] HCO3, Arterial 31 (H) 21 - 29 mmol/L [facility] Base Excess, Arterial 4.4 (H) -2.0 - 3.0 mmol/L [facility] Patient Temperature 36.0 C [facility] FIO2 72.0 % [facility] Specimen Blood, Arterial Performing Organization Address City/[facility] Centercode Phone Number [address] [address] [place] Platelet Aggregation: Function Screen (11/19/2017 9:34 AM CDT) Weak ADP 100 (H) 60 - 91 % [facility] Plt. Function Screen 60-100% indicates [facility] Interpretation normal platelet [facility] function Pathologist: Alyse Aguilera MD [facility] (electronic [facility] signature) Platelets 308 150 - 450 K/CU MM [facility] Specimen Blood Performing Organization Address City/[facility] Centercode Phone Number [address] [address] [place] Hemoglobin A1c (11/19/2017 7:07 AM CDT) Hemoglobin A1C 7.4 (H) 4.3 - 6.1 % [facility] Specimen Blood Performing Organization Address City/[facility] Phone Number [address] [address] [place] ECG 12 lead (11/19/2017 2:39 AM CDT) Specimen Narrative Performed At Ventricular Rate 62 BPM GE MUSE Atrial Rate 62 BPM P-R Interval 152 ms QRS Duration 98 ms Q-T Interval 464 ms QTC Calculation(Bazett) 470 ms P [place] 12 degrees R [place] 32 degrees T [place] 88 degrees Normal sinus rhythm with sinus arrhythmia Incomplete left bundle branch block Prolonged QT No previous ECGs available Confirmed by MD CORTEZ YOCHAI ([id number]) on 11/19/2017 6:04:15 AM Procedure Note Interface, External Ris In - 11/19/2017 6:04 AM CDT Ventricular Rate 62 BPM Atrial Rate 62 BPM P-R Interval 152 ms QRS Duration 98 ms Q-T Interval 464 ms QTC Calculation(Bazett) 470 ms P [place] 12 degrees R [place] 32 degrees T [place] 88 degrees Normal sinus rhythm with sinus arrhythmia Incomplete left bundle branch block Prolonged QT No previous ECGs available Confirmed by MD CORTEZ YOCHAI ([id number]) on 11/19/2017 6:04:15 AM Performing Organization Address City/[facility] Cent[facility]ode Phone Number GE MUSE Type and screen, automated (11/19/2017 2:16 AM CDT) ABO/RH AUTOMATED (BEAKER) A NEGATIVE [facility] Ab Scrn NEGATIVE [facility] Specimen Blood Performing Organization Address [facility] Phone Number [address] [address] Hemoglobin and hematocrit (11/19/2017 2:16 AM CDT) Hemoglobin 11.1 (L) 11.2 - 15.7 GM/DL [facility] Hematocrit 35.5 34.1 - 44.9 % [facility] Specimen Blood Performing Organization Address [facility] Phone Number [address] [address] CENTER aPTT (11/19/2017 2:16 AM CDT) PTT 27.2 22.5 - 36.0 seconds [facility] Specimen Blood Performing Organization Address [facility] Phone Number [address] [address] CENTER Prothrombin time/INR (11/19/2017 2:16 AM CDT) Protime 14.2 11.7 - 14.7 seconds [facility] INR 1.1 <=5.9 [facility] Specimen Blood Narrative Performed At [facility] RECOMMENDED COUMADIN/WARFARIN INR THERAPY RANGES STANDARD DOSE: 2.0 - 3.0 Includes: PROPHYLAXIS for venous thrombosis, systemic embolization; TREATMENT for venous thrombosis and/or pulmonary embolus. HIGH RISK: Target INR is 2.5-3.5 for patients with mechanical heart valves. Performing Organization Address City/[facility] Phone Number [address] [address] [phone] CENTER Potassium (11/19/2017 2:16 AM CDT) Potassium 4.7 3.5 - 5.1 meq/L [facility] Specimen Blood Narrative Performed At diabetic [facility] If Potassium greater than 5.5 mEq/L, call can handler Performing Organization Address [facility] Phone Number [address] [address] [phone] CENTER Glucose (11/19/2017 2:16 AM CDT) Glucose 255 (H) 70 - 105 mg/dL [facility] Specimen Blood Narrative Performed At diabetic [facility] If Potassium greater than 5.5 mEq/L, call can handler Performing Organization Address [facility] Phone Number [address] [address] [place] Hepatic function panel (11/19/2017 2:16 AM CDT) Protein, Total 6.6 6.0 - 8.3 gm/dL [facility] Albumin 3.6 3.5 - 5.0 g/dL [facility] Total Bilirubin 0.3 0.2 - 1.2 mg/dL [facility] Bilirubin, Direct 0.2 0.1 - 0.5 mg/dL [facility] Alkaline Phosphatase 120 40 - 150 U/L [facility] AST 13 5 - 34 U/L [facility] ALT 31 6 - 55 U/L [facility] Specimen Blood Narrative Performed At If diabetic [facility] If Potassium greater than 5.5 mEq/L, call can handler Performing Organization Address City/State/Zipcode Phone Number [address] [address] [phone] CENTER after 09/11/2017 Insurance Payer Benefit Plan / Group Subscriber ID Type Phone Address [employer] - MEDICARE AAR/MEDICARE COMPLETE xxxxxxxxx MGD CARE Advance Directives For more information, please contact:[address] [phone] Code Status Date Activated Date Inactivated Comments Full Code 11/19/2017 12:57 AM 11/21/2017 2:12 PM This code status was determined by: Patient
--- OUTSIDE RECORDS SUMMARY | 2018-09-12 16:30 | XMS REPORT ---
:1960 [facility] Address [address] [place] [address] [address] [place] [address] Care Team Providers Name Role Phone OTTONIEL BARRETO Unavailable Unavailable Problems This patient has no known problems. Allergies, Adverse Reactions, Alerts This patient has no known allergies or adverse reactions. Medications This patient has no known medications. Results Test Description Test Time Test Comments Text Results Atomic Results Result Comments CBC W/PLT COUNT & AUTO DIFFERENTIAL 2017-11-21 15:44:00 Test Item Value Reference Range Comments WHITE BLOOD CELL COUNT (BEAKER) (test qhml=790) 17.5 K/ L 3.5-10.5 RED BLOOD CELL COUNT (BEAKER) (test nzmc=880) 3.23 M/ L 3.93-5.22 HEMOGLOBIN (BEAKER) (test glej=798) 9.0 GM/DL 11.2-15.7 HEMATOCRIT (BEAKER) (test evqq=320) 29.2 % 34.1-44.9 MEAN CORPUSCULAR VOLUME (BEAKER) (test udom=998) 90.4 fL 79.4-94.8 MEAN CORPUSCULAR HEMOGLOBIN (BEAKER) (test kplx=449) 27.9 pg 25.6-32.2 MEAN CORPUSCULAR HEMOGLOBIN CONC (BEAKER) (test mnxp=184) 30.8 GM/DL 32.2- 35.5 RED CELL DISTRIBUTION WIDTH (BEAKER) (test bttp=257) 14.8 % 11.7-14.4 PLATELET COUNT (BEAKER) (test abwt=400) 262 K/CU MM 150-450 MEAN PLATELET VOLUME (BEAKER) (test fpsi=823) 11.2 fL 9.4-12.3 NUCLEATED RED BLOOD CELLS (BEAKER) (test dobh=019) 0 /100 WBC 0-0 (CELLAVISION MANUAL DIFF)2017-11-21 15:44:00 Test Item Value Reference Range Comments NEUTROPHILS - REL (CELLAVISION)(BEAKER) (test 72 % jtkn=6820) LYMPHOCYTES - REL (CELLAVISION)(BEAKER) (test 18 % yvle=9843) MONOCYTES - REL (CELLAVISION)(BEAKER) (test 6 % nyfh=9426) EOSINOPHILS - REL (CELLAVISION)(BEAKER) (test 1 % vhjt=2460) MYELOCYTES - REL (CELLAVISION)(BEAKER) (test 1 % 0-0 iwiv=0023) BANDS - REL (CELLAVISION)(BEAKER) (test 1 % 0-10 rhan=2247) ATYPICAL LYMPHOCYTES - REL (CELLAVISION)(BEAKER) 1 % 0-0 (test momp=5935) NEUTROPHILS - ABS (CELLAVISION)(BEAKER) (test 12.60 K/ul 1.56-6.13 kcmo=1239) LYMPHOCYTES - ABS (CELLAVISION)(BEAKER) (test 3.15 K/ul 1.18-3.74 srrs=6940) MONOCYTES - ABS (CELLAVISION)(BEAKER) (test 1.05 K/uL 0.24-0.36 ensv=9068) EOSINOPHILS - ABS (CELLAVISION)(BEAKER) (test 0.18 K/uL 0.04-0.36 avye=9868) MYELOCYTES-ABS (CELLAVISION)(BEAKER) (test 0.18 K/uL 0.00-0.00 fxvg=2547) BANDS - ABS (CELLAVISION)(BEAKER) (test 0.18 K/uL 0.00-0.80 dryf=2853) ATYPICAL LYMPHOCYTES - ABS (CELLAVISION)(BEAKER) 0.18 K/uL 0.00-0.00 (test pthb=8223) TOTAL COUNTED (BEAKER) (test qhlm=4294) 100 PLT MORPHOLOGY (BEAKER) (test mxnw=241) Normal SMUDGE CELLS (BEAKER) (test iupg=3405) Present HYPOCHROMIA (BEAKER) (test vgur=626) 1+ few ANISOCYTOSIS (BEAKER) (test xzxx=217) 1+ few MICROCYTES (BEAKER) (test vjzp=377) 1+ few PLATELET CONCENTRATION (CELLAVISION)(BEAKER) Adequate (test qhoe=8169) Received comment: User comments: Slide comments:POCT-GLUCOSE [id number] 07: 30:00 Test Item Value Reference Range Comments POC-GLUCOSE METER (BEAKER) 97 mg/dL 70-110 TESTED AT [facility] [address] [place] [address] (test bvdl=5073) [facility] [address] [id number] 07:05:00 Test Item Value Reference Range Comments MAGNESIUM (BEAKER) (test jdfk=702) 2.2 mg/dL 1.6-2.6 BASIC METABOLIC [id number] 07:05:00 Test Item Value Reference Range Comments SODIUM (BEAKER) (test 141 meq/L 136-145 amwy=629) POTASSIUM (BEAKER) (test 4.0 meq/L 3.5-5.1 ccye=267) CHLORIDE (BEAKER) (test 103 meq/L 98-107 wmaj=617) CO2 (BEAKER) (test 31 meq/L 22-29 wsjn=788) BLOOD UREA NITROGEN 26 mg/dL 7-21 (BEAKER) (test hcwq=611) CREATININE (BEAKER) (test 0.81 mg/dL 0.57-1.25 ccsc=777) GLUCOSE RANDOM (BEAKER) 91 mg/dL 70-105 (test rikv=718) CALCIUM (BEAKER) (test 8.8 mg/dL 8.4-10.2 rvzz=030) EGFR (BEAKER) (test 72 mL/min/1.73 sq m ESTIMATED GFR IS NOT dnxw=9685) ACCURATE CREATININE CLEARANCE IN PREDICTING GLOMERULAR FILTRATION RATE. ESTIMATED GFR IS NOT APPLICABLE FOR DIALYSIS PATIENTS. POCT-GLUCOSE [id number] 21:29:00 Test Item Value Reference Range Comments POC-GLUCOSE METER (BEAKER) 251 mg/dL 70-110 TESTED AT [address] (test tdgu=9301) [facility] [address] POCT-GLUCOSE [id number] 16:44:00 Test Item Value Reference Range Comments POC-GLUCOSE METER (BEAKER) 257 mg/dL 70-110 TESTED AT [address] (test vtsu=3935) [facility] [address] POCT-GLUCOSE [id number] 11:47:00 Test Item Value Reference Range Comments POC-GLUCOSE METER (BEAKER) 153 mg/dL 70-110 TESTED AT [facility] [address] (test dxgh=3475) [place] [address] CBC W/PLT COUNT & AUTO [id number] 10:51:00 Test Item Value Reference Range Comments WHITE BLOOD CELL COUNT (BEAKER) (test byzr=069) 22.5 K/ L 3.5-10.5 RED BLOOD CELL COUNT (BEAKER) (test hrrj=247) 3.52 M/ L 3.93-5.22 HEMOGLOBIN (BEAKER) (test viqi=284) 9.7 GM/DL 11.2-15.7 HEMATOCRIT (BEAKER) (test ttav=308) 31.8 % 34.1-44.9 MEAN CORPUSCULAR VOLUME (BEAKER) (test xewg=684) 90.3 fL 79.4-94.8 MEAN CORPUSCULAR HEMOGLOBIN (BEAKER) (test 27.6 pg 25.6-32.2 ppuj=290) MEAN CORPUSCULAR HEMOGLOBIN CONC (BEAKER) (test 30.5 GM/DL 32.2-35.5 vyjb=142) RED CELL DISTRIBUTION WIDTH (BEAKER) (test 14.8 % 11.7-14.4 dxqy=043) PLATELET COUNT (BEAKER) (test ekpv=856) 299 K/CU MM 150-450 MEAN PLATELET VOLUME (BEAKER) (test tlmv=979) 11.1 fL 9.4-12.3 NUCLEATED RED BLOOD CELLS (BEAKER) (test 0 /100 WBC 0-0 prsq=747) (CELLAVISION MANUAL DIFF)2017-11-20 10:51:00 Test Item Value Reference Range Comments NEUTROPHILS - REL (CELLAVISION)(BEAKER) (test 75 % sitn=4655) LYMPHOCYTES - REL (CELLAVISION)(BEAKER) (test 18 % xdpz=2658) MONOCYTES - REL (CELLAVISION)(BEAKER) (test 4 % udgz=3478) EOSINOPHILS - REL (CELLAVISION)(BEAKER) (test 1 % dlxc=5178) METAMYELOCYTES - REL (CELLAVISION)(BEAKER) (test 2 % 0-0 fivy=9119) NEUTROPHILS - ABS (CELLAVISION)(BEAKER) (test 16.88 K/ul 1.56-6.13 vmqx=4953) LYMPHOCYTES - ABS (CELLAVISION)(BEAKER) (test 4.05 K/ul 1.18-3.74 upja=3417) MONOCYTES - ABS (CELLAVISION)(BEAKER) (test 0.90 K/uL 0.24-0.36 qjsa=6397) EOSINOPHILS - ABS (CELLAVISION)(BEAKER) (test 0.23 K/uL 0.04-0.36 hboj=3778) METAMYELOCYTES - ABS (CELLAVISION)(BEAKER) (test 0.45 K/uL 0.00-0.00 rjyp=4226) TOTAL COUNTED (BEAKER) (test cxmd=0606) 100 WBC MORPHOLOGY (BEAKER) (test yuho=856) Normal PLT MORPHOLOGY (BEAKER) (test vsep=551) Normal ANISOCYTOSIS (BEAKER) (test vpqz=083) 1+ few MICROCYTES (BEAKER) (test izwe=745) 1+ few ARTIFACT (CELLAVISION)(BEAKER) (test fuos=4768) Present PLATELET CONCENTRATION (CELLAVISION)(BEAKER) Adequate (test jbkv=8905) Received comment: User comments: Slide comments:POCT-GLUCOSE [id number] 07: 32:00 Test Item Value Reference Range Comments POC-GLUCOSE METER (BEAKER) 128 mg/dL 70-110 TESTED AT [facility] [address] [place] [address] (test nhvn=8036) [facility] [address] [id number] 06:35:00 Test Item Value Reference Range Comments MAGNESIUM (BEAKER) (test jdzp=066) 2.3 mg/dL 1.6-2.6 BASIC METABOLIC [id number] 06:35:00 Test Item Value Reference Range Comments SODIUM (BEAKER) (test 141 meq/L 136-145 yuro=210) POTASSIUM (BEAKER) (test 4.0 meq/L 3.5-5.1 kxpi=678) CHLORIDE (BEAKER) (test 102 meq/L 98-107 pozz=243) CO2 (BEAKER) (test 32 meq/L 22-29 zvik=158) BLOOD UREA NITROGEN 32 mg/dL 7-21 (BEAKER) (test kxnt=069) CREATININE (BEAKER) (test 1.04 mg/dL 0.57-1.25 jctv=370) GLUCOSE RANDOM (BEAKER) 126 mg/dL 70-105 (test xciu=453) CALCIUM (BEAKER) (test 8.7 mg/dL 8.4-10.2 xuss=144) EGFR (BEAKER) (test 54 mL/min/1.73 sq m ESTIMATED GFR IS NOT wbng=6605) ACCURATE CREATININE CLEARANCE IN PREDICTING GLOMERULAR FILTRATION RATE. ESTIMATED GFR IS NOT APPLICABLE FOR DIALYSIS PATIENTS. POCT-GLUCOSE [id number] 21:21:00 Test Item Value Reference Range Comments POC-GLUCOSE METER (BEAKER) 353 mg/dL 70-110 TESTED AT [address] (test lfji=2522) [facility] [address] POCT-GLUCOSE [id number] 18:11:00 Test Item Value Reference Range Comments POC-GLUCOSE METER (BEAKER) 204 mg/dL 70-110 TESTED AT [address] (test lsbm=2834) [facility] [address] POCT-GLUCOSE [id number] 16:35:00 Test Item Value Reference Range Comments POC-GLUCOSE METER (BEAKER) 224 mg/dL 70-110 TESTED AT [address] (test atht=1030) [facility] [address] POTASSIUM-STAT [id number] 14:38:00 Test Item Value Reference Range Comments POTASSIUM (BEAKER) (test gygd=973) 4.5 meq/L 3.6-5.5 GLUCOSE-STAT [id number] 14:38:00 Test Item Value Reference Range Comments GLUCOSE RANDOM (BEAKER) (test thmh=563) 230 mg/dL 70-110 HGB/HCT (H&H) - STAT [id number] 14:38:00 Test Item Value Reference Range Comments HEMOGLOBIN (BEAKER) (test uvhg=440) 11.3 g/dL 12.0-15.0 HEMATOCRIT (BEAKER) (test vwif=137) 33.0 % 36.0-45.0 BLOOD GAS, [id number] 13:18:00 Test Item Value Reference Range Comments PH ARTERIAL (BEAKER) (test kzxt=063) 7.39 7.35-7.45 PCO2 ARTERIAL (BEAKER) (test eonm=683) 52 mmHg 35-45 PO2 ARTERIAL (BEAKER) (test avyx=302) 66 mmHg 80-90 O2 SATURATION ARTERIAL (BEAKER) (test qjet=136) 93.4 % 96.0-97.0 HCO3 ARTERIAL (BEAKER) (test zono=784) 31 mmol/L 21-29 BASE EXCESS ARTERIAL (BEAKER) (test ebhg=181) 4.4 mmol/L -2.0-3.0 PATIENT TEMPERATURE (BEAKER) (test nllg=1051) 36.0 C FIO2 (BEAKER) (test uppy=6496) 72.0 % GLUCOSE-STAT [id number] 13:18:00 Test Item Value Reference Range Comments GLUCOSE RANDOM (BEAKER) (test uzka=328) 178 mg/dL 70-110 HGB/HCT (H&H) - STAT [id number] 13:18:00 Test Item Value Reference Range Comments HEMOGLOBIN (BEAKER) (test fshg=039) 10.6 g/dL 12.0-15.0 HEMATOCRIT (BEAKER) (test harv=332) 31.0 % 36.0-45.0 CALCIUM, [id number] 13:18:00 Test Item Value Reference Range Comments CALCIUM IONIZED (BEAKER) (test lbcm=317) 1.05 mmol/L 1.12-1.27 PH, BLOOD (BEAKER) (test ulsq=7253) 7.37 SODIUM NA-STAT [id number] 13:17:00 Test Item Value Reference Range Comments SODIUM (BEAKER) (test onjt=623) 139 meq/L 135-148 POTASSIUM-STAT [id number] 13:17:00 Test Item Value Reference Range Comments POTASSIUM (BEAKER) (test fjgt=038) 4.3 meq/L 3.6-5.5 PLATELET AGGREGATION: FUNCTION [id number] 11:37:00 Test Item Value Reference Range Comments WEAK ADP RESULT(BEAKER) (test 100 % 60-91 xmoh=0881) PLATELET FUNCTION SCREEN 60-100% indicates normal INTERP (BEAKER) (test platelet function wmun=6319) [id number] (BEAKER) Alyse Aguilera MD (electronic (test ofyu=2460) signature) PLATELET COUNT AGG (BEAKER) 308 K/CU MM 150-450 (test zfwr=3614) HEMOGLOBIN [id number] 10:52:00 Test Item Value Reference Range Comments HEMOGLOBIN A1C (BEAKER) (test axej=854) 7.4 % 4.3-6.1 CBC W/PLT COUNT & AUTO [id number] 08:02:00 Test Item Value Reference Range Comments WHITE BLOOD CELL COUNT (BEAKER) (test nfoi=006) 18.3 K/ L 3.5-10.5 RED BLOOD CELL COUNT (BEAKER) (test codz=904) 3.98 M/ L 3.93-5.22 HEMOGLOBIN (BEAKER) (test sxuw=047) 11.1 GM/DL 11.2-15.7 HEMATOCRIT (BEAKER) (test psju=020) 35.5 % 34.1-44.9 MEAN CORPUSCULAR VOLUME (BEAKER) (test uvgb=894) 89.2 fL 79.4-94.8 MEAN CORPUSCULAR HEMOGLOBIN (BEAKER) (test 27.9 pg 25.6-32.2 jvcy=248) MEAN CORPUSCULAR HEMOGLOBIN CONC (BEAKER) (test 31.3 GM/DL 32.2-35.5 gpnh=906) RED CELL DISTRIBUTION WIDTH (BEAKER) (test 14.5 % 11.7-14.4 yurb=612) PLATELET COUNT (BEAKER) (test cyha=111) 278 K/CU MM 150-450 MEAN PLATELET VOLUME (BEAKER) (test ofyk=923) 11.5 fL 9.4-12.3 NUCLEATED RED BLOOD CELLS (BEAKER) (test 0 /100 WBC 0-0 bwgm=902) (CELLAVISION MANUAL DIFF)2017-11-19 08:02:00 Test Item Value Reference Range Comments NEUTROPHILS - REL (CELLAVISION)(BEAKER) (test 78 % nfhh=6075) LYMPHOCYTES - REL (CELLAVISION)(BEAKER) (test 5 % yjyp=1853) MONOCYTES - REL (CELLAVISION)(BEAKER) (test 4 % trav=1756) METAMYELOCYTES - REL (CELLAVISION)(BEAKER) (test 2 % 0-0 rjrz=4059) MYELOCYTES - REL (CELLAVISION)(BEAKER) (test 2 % 0-0 fubh=7516) BANDS - REL (CELLAVISION)(BEAKER) (test 9 % 0-10 uzdt=5853) NEUTROPHILS - ABS (CELLAVISION)(BEAKER) (test 14.27 K/ul 1.56-6.13 loys=4314) LYMPHOCYTES - ABS (CELLAVISION)(BEAKER) (test 0.92 K/ul 1.18-3.74 dpyp=1732) MONOCYTES - ABS (CELLAVISION)(BEAKER) (test 0.73 K/uL 0.24-0.36 ayqt=5114) METAMYELOCYTES - ABS (CELLAVISION)(BEAKER) (test 0.37 K/uL 0.00-0.00 ddum=5784) MYELOCYTES-ABS (CELLAVISION)(BEAKER) (test 0.37 K/uL 0.00-0.00 iynt=7733) BANDS - ABS (CELLAVISION)(BEAKER) (test 1.65 K/uL 0.00-0.80 zkpd=6654) TOTAL COUNTED (BEAKER) (test cglr=5775) 100 RBC MORPHOLOGY (BEAKER) (test xoep=025) Normal WBC MORPHOLOGY (BEAKER) (test fxee=541) Normal PLT MORPHOLOGY (BEAKER) (test pnmv=985) Normal ARTIFACT (CELLAVISION)(BEAKER) (test eyli=5014) Present PLATELET CONCENTRATION (CELLAVISION)(BEAKER) Adequate (test ioqe=4323) Received comment: User comments: Slide comments:POCT-GLUCOSE [id number] 07: 40:00 Test Item Value Reference Range Comments POC-GLUCOSE METER (BEAKER) 180 mg/dL 70-110 TESTED AT [address] (test bfde=8511) [facility] [address] [id number] 02:52:00 Test Item Value Reference Range Comments POTASSIUM (BEAKER) (test gbul=646) 4.7 meq/L 3.5-5.1 If diabeticIf Potassium greater than 5.5 mEq/L, call [id number] 02:52:00 Test Item Value Reference Range Comments MAGNESIUM (BEAKER) (test rfoj=511) 2.3 mg/dL 1.6-2.6 If diabeticIf Potassium greater than 5.5 mEq/L, call nephrologistHEPATIC FUNCTION [id number] 02:52:00 Test Item Value Reference Range Comments TOTAL PROTEIN (BEAKER) (test hrag=646) 6.6 gm/dL 6.0-8.3 ALBUMIN (BEAKER) (test zyqb=7612) 3.6 g/dL 3.5-5.0 BILIRUBIN TOTAL (BEAKER) (test nipp=230) 0.3 mg/dL 0.2-1.2 BILIRUBIN DIRECT (BEAKER) (test igqb=756) 0.2 mg/dL 0.1-0.5 ALKALINE PHOSPHATASE (BEAKER) (test htnz=242) 120 U/L 40-150 AST (SGOT) (BEAKER) (test odaz=076) 13 U/L 5-34 ALT (SGPT) (BEAKER) (test llkh=584) 31 U/L 6-55 If diabeticIf Potassium greater than 5.5 mEq/L, call [id number] 02:52:00 Test Item Value Reference Range Comments GLUCOSE RANDOM (BEAKER) (test aklg=329) 255 mg/dL 70-105 If diabeticIf Potassium greater than 5.5 mEq/L, call nephrologistBASIC METABOLIC [id number] 02:52:00 Test Item Value Reference Range Comments SODIUM (BEAKER) (test 137 meq/L 136-145 omtu=484) POTASSIUM (BEAKER) (test 4.7 meq/L 3.5-5.1 tack=701) CHLORIDE (BEAKER) (test 103 meq/L 98-107 cbce=521) CO2 (BEAKER) (test 26 meq/L 22-29 lnbp=848) BLOOD UREA NITROGEN 29 mg/dL 7-21 (BEAKER) (test jzih=744) CREATININE (BEAKER) (test 0.89 mg/dL 0.57-1.25 mpqw=032) GLUCOSE RANDOM (BEAKER) 255 mg/dL 70-105 (test xpdk=823) CALCIUM (BEAKER) (test 8.9 mg/dL 8.4-10.2 yoik=141) EGFR (BEAKER) (test 65 mL/min/1.73 sq m ESTIMATED GFR IS NOT qlgo=0416) ACCURATE CREATININE CLEARANCE IN PREDICTING GLOMERULAR FILTRATION RATE. ESTIMATED GFR IS NOT APPLICABLE FOR DIALYSIS PATIENTS. If diabeticIf Potassium greater than 5.5 mEq/L, call [id number] 02:37:00 Test Item Value Reference Range Comments PARTIAL THROMBOPLASTIN TIME (BEAKER) (test 27.2 seconds 22.5-36.0 oojq=832) PROTHROMBIN [id number] 02:36:00 Test Item Value Reference Range Comments PROTIME (BEAKER) (test kgbj=875) 14.2 seconds 11.7-14.7 INR (BEAKER) (test eonf=781) 1.1 <=5.9 RECOMMENDED COUMADIN/WARFARIN INR THERAPY RANGESSTANDARD DOSE: 2.0 - 3.0 Includes: PROPHYLAXIS forvenous thrombosis, systemic embolization; TREATMENT for venous thrombosis and/or pulmonary embolus.HIGH RISK: Target INR is 2.5-3.5 for patients with mechanical heart valves.HEMOGLOBIN AND [id number] 02 :29:00 Test Item Value Reference Range Comments HEMOGLOBIN (BEAKER) (test vpyd=366) 11.1 GM/DL 11.2-15.7 HEMATOCRIT (BEAKER) (test gxww=105) 35.5 % 34.1-44.9 POCT-GLUCOSE [id number] 00:48:00 Test Item Value Reference Range Comments POC-GLUCOSE METER (BEAKER) 269 mg/dL 70-110 TESTED AT [facility] [address] (test njmo=1875) [facility] [address]
[2018-09-12] MEDS ORDERED: FLUCONAZOLE 100 MG TAB ONE (17:28)
[2018-09-12] MEDS ORDERED: DIAZEPAM 2 MG TABLET ONE (17:28)
[2018-09-12] MEDS ORDERED: HYDROCODONE/APAP 5/325 MG TAB ONE (17:28)
--- NOTE | 2018-09-12 17:39 | EDPHYS ---
Physician Documentation [facility] Name: Leti Woods Age: 58 yrs Sex: Female : 1960 Arrival Date: 09/12/2018 Time: 16:29 Bed 23 Private MD: ED Physician Rodrigo Fabian HPI: 09/12 17:17 This 58 yrs old Female presents to ER via Ambulatory with complaints of Arm snw Pain, Rash. 17:17 The patient or guardian complains of injury, pain. The complaints affect the anterior snw aspect of right shoulder, right bicep and posterior aspect of right shoulder. Context: The problem was sustained at home, resulted from a fall, in shower. Onset: The symptoms/episode began/occurred suddenly, 1 week(s) ago, and became persistent. Associated signs and symptoms: Pertinent positives: decreased range of motion, pain, of the right shoulder and right arm. Severity of symptoms: At their worst the symptoms were moderate. The patient has not experienced similar symptoms in the past. pt was given abx one month ago for small rash to chest, pt states it has gotten bigger and is very pruritic. Historical: - Allergies: 16:49 No Known Allergies; lp1 - Home Meds: 16:49 Coreg 25 mg Oral tab 1 tab 2 times per day [Active]; amlodipine oral once daily lp1 [Active]; metformin 1,000 mg Oral tab 1 tab 2 times per day [Active]; Lasix 20 mg Oral tab 1 tab once daily [Active]; Aspirin Oral once daily [Active]; - PMHx: 16:49 Atrial Fib; COPD; Diabetes - NIDDM; Hypertension; Myocardial infarction; lp1 - PSHx: 16:49 Tonsillectomy; Skin Graft; Hysterectomy; Cholecystectomy; lp1 - Immunization history:: Adult Immunizations up to date. - Social history:: Smoking status: Patient uses tobacco products, smokes one-half pack cigarettes per day. - Ebola Screening: : No symptoms or risks identified at this time. ROS: 17:15 Constitutional: Negative for fever, chills, and weight loss, Eyes: Negative for injury, snw pain, redness, and discharge, ENT: Negative for injury, pain, and discharge, Neck: Negative for injury, pain, and swelling, Cardiovascular: Negative for chest pain, palpitations, and edema, Respiratory: Negative for shortness of breath, cough, wheezing, and pleuritic chest pain, Abdomen/GI: Negative for abdominal pain, nausea, vomiting, diarrhea, and constipation, Back: Negative for injury and pain, : Negative for injury, bleeding, discharge, and swelling, Neuro: Negative for headache, weakness, numbness, tingling, and seizure. 17:15 MS/extremity: Positive for injury or acute deformity, decreased range of motion, pain, of the right shoulder and right arm. 17:15 Skin: Positive for rash. Exam: 17:12 Abdomen/GI: Soft, non-tender, with normal bowel sounds. No distension or tympany. No snw guarding or rebound. No evidence of tenderness throughout. Back: No spinal tenderness. No costovertebral tenderness. Full range of motion. Neuro: Awake and alert, GCS 15, oriented to person, place, time, and situation. Cranial nerves II-XII grossly intact. Motor strength 5/5 in all extremities. Sensory grossly intact. Cerebellar exam normal. Normal gait. Psych: Awake, alert, with orientation to person, place and time. Behavior, mood, and affect are within normal limits. 17:12 Constitutional: This is a well developed, well nourished patient who is awake, alert, and in no acute distress. Mild diaphoresis, pt states norm for her with activity and heat and pain Head/Face: Normocephalic, atraumatic. Eyes: Pupils equal round and reactive to light, extra-ocular motions intact. Lids and lashes normal. Conjunctiva and sclera are non-icteric and not injected. Cornea within normal limits. Periorbital areas with no swelling, redness, or edema. ENT: Nares patent. No nasal discharge, no septal abnormalities noted. Tympanic membranes are normal and external auditory canals are clear. Oropharynx with no redness, swelling, or masses, exudates, or evidence of obstruction, uvula midline. Mucous membranes moist. Neck: Trachea midline, no thyromegaly or masses palpated, and no cervical lymphadenopathy. Supple, full range of motion without nuchal rigidity, or vertebral point tenderness. No Meningismus. Cardiovascular: Regular rate and rhythm with a normal S1 and S2. No gallops, murmurs, or rubs. Normal PMI, no JVD. No pulse deficits. 17:12 Respiratory: the patient does not display signs of respiratory distress, Respirations: shallow respirations, Breath sounds: are clear throughout, on O2 at 2L. 17:12 Musculoskeletal/extremity: Extremities: grossly normal except: noted in the right shoulder and upper humerus: decreased ROM, tenderness, ROM: painful arc, Circulation is intact in all extremities. Sensation intact. 17:15 Chest/axilla: Inspection: rash, + centrally clearing 4cm x 4cm rash to left upper chest snw consistent with tinea corporus. Vital Signs: 16:47 BP 152 / 75; Pulse 87; Resp 18; Temp 99.4(O); Pulse Ox 95% on R/A; Weight 99.79 kg; lp1 Height 5 ft. 4 in. (162.56 cm); Pain 8/10; 17:50 BP 144 / 67; Pulse 76; Resp 17; Temp 99(O); Pulse Ox 98% on 2 lpm NC; ca1 16:47 Body Mass Index 37.76 (99.79 kg, 162.56 cm) lp1 16:47 Patient states on home O2 at 2L lp1 MDM: 17:07 Patient medically screened. snw 17:41 Data reviewed: vital signs, nurses notes. Data interpreted: Pulse oximetry: on room air snw is 95 %. Interpretation: acceptable. Counseling: I had a detailed discussion with the patient and/or guardian regarding: the historical points, exam findings, and any diagnostic results supporting the discharge/admit diagnosis, radiology results, the need for outpatient follow up, to return to the emergency department if symptoms worsen or persist or if there are any questions or concerns that arise at home. Special discussion: Based on the history and exam findings, there is no indication for further emergent testing or inpatient evaluation. I discussed with the patient/guardian the need to see the body mechanic for further evaluation of the symptoms. I discussed with the patient/guardian the need to see the orthopedic surgeon for further evaluation of the symptoms. I discussed with the patient/guardian the need to see the primary care provider for further evaluation of the symptoms. 09/12 17:08 Order name: Shoulder Right (2 View) XRAY snw 09/12 17:08 Order name: Humerus Right XRAY snw 09/12 17:12 Order name: Sling; Complete Time: 17:45 snw Administered Medications: 17:08 Drug: [place] 5 mg-325 mg 1 tabs Route: PO; ca1 17:50 Follow up: Response: No adverse reaction; Pain is decreased ca1 17:10 Drug: Valium 2 mg Route: PO; ca1 17:50 Follow up: Response: No adverse reaction; Pain is decreased ca1 17:16 Drug: DiFLUcan 100 mg Route: PO; ca1 17:50 Follow up: Response: No adverse reaction ca1 Disposition: 18:29 Co-signature as Attending Physician, Rodrigo Fabian MD. rn Disposition: 09/12/18 17:40 Discharged to Home. Impression: Fall on same level from slipping, tripping and stumbling, Pain in right shoulder, Tinea corporis. - Condition is Stable. - Discharge Instructions: Joint Pain, Fall Prevention in the Home, Body Ringworm, Shoulder Pain, Cryotherapy, [id number], Shoulder Sprain, Heat Therapy, How to Use a Sling. - Prescriptions for Clotrimazole 1 % Topical Cream - Apply to affected area 1 application by TOPICAL route every 12 hours; 15 gram. Ultram 50 mg Oral Tablet - take 1 tablet by ORAL route every 6 hours As needed; 20 tablet. - Medication Reconciliation Form, Thank You Letter, Antibiotic Education, Prescription Opioid Use form. - Follow up: Private Physician; When: 2 - 3 days; Reason: Recheck today's complaints, Continuance of care, Re-evaluation by your physician. Follow up: Emergency Department; When: As needed; Reason: Worsening of condition. Signatures: Dispatcher [employer] EDMS Mirian Pereira, SPLITTER OPERATOR-C SPLITTER OPERATOR-Csnw Rodrigo Fabian MD MD rn Pena, Laura, RN RN lp1 Edna Butler RN RN ca1 Corrections: (The following items were deleted from the chart) 17:17 17:12 Constitutional: This is a well developed, well nourished patient who is awake, snw alert, and in no acute distress. Mild diaphoresis, pt states norm for her with activity and heat and pain Head/Face: Normocephalic, atraumatic. Eyes: Pupils equal round and reactive to light, extra-ocular motions intact. Lids and lashes normal. Conjunctiva and sclera are non-icteric and not injected. Cornea within normal limits. Periorbital areas with no swelling, redness, or edema. ENT: Nares patent. No nasal discharge, no septal abnormalities noted. Tympanic membranes are normal and external auditory canals are clear. Oropharynx with no redness, swelling, or masses, exudates, or evidence of obstruction, uvula midline. Mucous membranes moist. Neck: Trachea midline, no thyromegaly or masses palpated, and no cervical lymphadenopathy. Supple, full range of motion without nuchal rigidity, or vertebral point tenderness. No Meningismus. Cardiovascular: Regular rate and rhythm with a normal S1 and S2. No gallops, murmurs, or rubs. Normal PMI, no JVD. No pulse deficits. snw 17:55 17:40 09/12/2018 17:40 Discharged to Home. Impression: Fall on same level from ca1 slipping, tripping and stumbling; Pain in right shoulder; Tinea corporis. Condition is Stable. Discharge Instructions: Fall Prevention in the Home, Body Ringworm, Shoulder Pain, Shoulder Sprain, How to Use a Sling. Prescriptions for Clotrimazole 1 % Topical Cream - Apply to affected area 1 application by TOPICAL route every 12 hours; 15 gram. and Forms are Medication Reconciliation Form, Thank You Letter, Antibiotic Education, Prescription Opioid Use. Follow up: Private Physician; When: 2 - 3 days; Reason: Recheck today's complaints, Continuance of care, Re-evaluation by your physician. Follow up: Emergency Department; When: As needed; Reason: Worsening of condition. snw
--- NOTE | 2018-09-12 17:39 | ER ---
Nurse's Notes [facility] Name: Leti Woods Age: 58 yrs Sex: Female : 1960 Arrival Date: 09/12/2018 Time: 16:29 Bed 23 Private MD: Diagnosis: Fall on same level from slipping, tripping and stumbling;Pain in right shoulder;Tinea corporis Presentation: 09/12 16:46 Presenting complaint: Patient states: Rash to chest since last month, took dose of lp1 antibiotics last month by PCP with no improvement; Pain to right arm when lifting it up from fall 2 weeks ago. Transition of care: patient was not received from another setting of care. Onset of symptoms was September 12, 2018. Risk Assessment: Do you want to hurt yourself or someone else? Patient reports no desire to harm self or others. Initial Sepsis Screen: Does the patient meet any 2 criteria? No. Patient's initial sepsis screen is negative. Does the patient have a suspected source of infection? No. Patient's initial sepsis screen is negative. Care prior to arrival: None. 16:46 Method Of Arrival: Ambulatory lp1 16:46 Acuity: KIRK 4 lp1 Historical: - Allergies: 16:49 No Known Allergies; lp1 - Home Meds: 16:49 Coreg 25 mg Oral tab 1 tab 2 times per day [Active]; amlodipine oral once daily lp1 [Active]; metformin 1,000 mg Oral tab 1 tab 2 times per day [Active]; Lasix 20 mg Oral tab 1 tab once daily [Active]; Aspirin Oral once daily [Active]; - PMHx: 16:49 Atrial Fib; COPD; Diabetes - NIDDM; Hypertension; Myocardial infarction; lp1 - PSHx: 16:49 Tonsillectomy; Skin Graft; Hysterectomy; Cholecystectomy; lp1 - Immunization history:: Adult Immunizations up to date. - Social history:: Smoking status: Patient uses tobacco products, smokes one-half pack cigarettes per day. - Ebola Screening: : No symptoms or risks identified at this time. Screenin:50 Abuse screen: Denies threats or abuse. Denies injuries from another. Nutritional lp1 screening: No deficits noted. Tuberculosis screening: No symptoms or risk factors identified. Fall Risk None identified. Assessment: 17:01 General: Appears in no apparent distress. uncomfortable, Behavior is calm, cooperative, ca1 appropriate for age. Pain: Complains of pain in anterior aspect of right shoulder, right bicep, posterior aspect of right shoulder and right tricep Pain radiates to right sternocleidomastoid and right posterior aspect of neck Pain currently is 9 out of 10 on a pain scale. Quality of pain is described as aching, Pain began 2 weeks ago Aggravated by repositioning. Neuro: Level of Consciousness is awake, alert, obeys commands, Oriented to person, place, time, situation. Cardiovascular: Heart tones S1 S2 present Capillary refill < 3 seconds Patient's skin is warm and dry. Pulses are all present. Respiratory: Reports shortness of breath at rest pt reports she is on 2LPM O2 at home. Airway is patent Respiratory effort is even, unlabored, Respiratory pattern is regular, symmetrical, Breath sounds are clear bilaterally. GI:. Derm: Skin is intact, is healthy with good turgor, Skin is pink, warm \T\ dry. Musculoskeletal: Circulation, motion, and sensation intact. Capillary refill < 3 seconds, Range of motion: limited in right shoulder. 17:50 Reassessment: Patient appears in no apparent distress at this time. Patient and/or ca1 family updated on plan of care and expected duration. Pain level reassessed. Patient is alert, oriented x 3, equal unlabored respirations, skin warm/dry/pink. 17:50 Reassessment: Pt will be picked up by daughter. ca1 Vital Signs: 16:47 BP 152 / 75; Pulse 87; Resp 18; Temp 99.4(O); Pulse Ox 95% on R/A; Weight 99.79 kg; lp1 Height 5 ft. 4 in. (162.56 cm); Pain 8/10; 17:50 BP 144 / 67; Pulse 76; Resp 17; Temp 99(O); Pulse Ox 98% on 2 lpm NC; ca1 16:47 Body Mass Index 37.76 (99.79 kg, 162.56 cm) lp1 16:47 Patient states on home O2 at 2L lp1 ED Course: 16:29 Patient arrived in ED. mr 16:47 Triage completed. lp1 16:48 Arm band placed on right wrist. lp1 16:58 Mirian Pereira FNP-C [facility]. snw 16:58 Rodrigo Fabian MD is Attending Physician. snw 16:59 Edna Butler, RN is Primary Nurse. ca1 17:01 Patient has correct armband on for positive identification. Bed in low position. Call ca1 light in reach. Side rails up X 1. Pulse ox on. NIBP on. Warm blanket given. 17:01 No provider procedures requiring assistance completed. ca1 17:45 Patient did not have IV access during this emergency room visit. Sling applied to right ca1 arm. Administered Medications: 17:08 Drug: [place] 5 mg-325 mg 1 tabs Route: PO; ca1 17:50 Follow up: Response: No adverse reaction; Pain is decreased ca1 17:10 Drug: Valium 2 mg Route: PO; ca1 17:50 Follow up: Response: No adverse reaction; Pain is decreased ca1 17:16 Drug: DiFLUcan 100 mg Route: PO; ca1 17:50 Follow up: Response: No adverse reaction ca1 Outcome: 17:40 Discharge ordered by MD. snw 17:53 Discharged to home ambulatory. ca1 17:53 Condition: stable 17:53 Discharge instructions given to patient, Instructed on discharge instructions, follow up and referral plans. medication usage, Demonstrated understanding of instructions, follow-up care, medications, Prescriptions given X 2. 17:55 Patient left the ED. ca1 Signatures: Mirian Pereira, QUALITY CONTROL ENGINEER-C QUALITY CONTROL ENGINEER-Csnw Elizabeth HubbardGloria, RN RN lp1 Edna Butler, SUZE RN ca1 Corrections: (The following items were deleted from the chart) 17:05 17:01 Respiratory: Airway is patent Respiratory effort is even, unlabored, Respiratory ca1 pattern is regular, symmetrical, Breath sounds are clear bilaterally. ca1
--- NOTE | 2018-09-12 18:03 | RAD REPORT ---
EXAM DESCRIPTION: Shoulder Right 2 View - 09/12/2018 5:29 pm CLINICAL HISTORY: Right shoulder pain after lifting injury COMPARISON: None. TECHNIQUE: Internal and external rotation views of the right shoulder were obtained. FINDINGS: There is no fracture or dislocation. Mild degenerative change seen along the undersurface of the acromion. Acromial humeral joint space is narrowed slightly. There degenerative changes seen along the superolateral aspect of the humeral head at the bicipital groove. No abnormal soft tissue c alcifications. No pathologic bone process. IMPRESSION: Mild degenerative change as detailed. No acute findings.
--- NOTE | 2018-09-12 18:03 | RAD REPORT ---
EXAM DESCRIPTION: RAD - Humerus Right - 09/12/2018 5:27 pm CLINICAL HISTORY: Trauma, arm pain COMPARISON: None. FINDINGS: No fracture or dislocation. Degenerative changes at the shoulder joint are detailed in sep arate right shoulder report. Shaft and distal aspect of the right humerus show no acute findings. No foreign body or other soft tissue abnormality. IMPRESSION: Mild degenerative change at the shoulder joint. No acute bone or joint finding.
== END 2018-09-12 17:55 | disposition home or self-care (01) ==
LOC: ER 16:25
DX: B35.4 Tinea corporis (principal); M25.511 Pain in right shoulder; W18.2XXA Fall in (into) shower or empty bathtub, initial encounter; Y92.002 Bathroom of unspecified non-institutional (private) residence as the place of occurrence of the external cause; I48.91 Unspecified atrial fibrillation; E11.9 Type 2 diabetes mellitus without complications; I10 Essential (primary) hypertension; I25.2 Old myocardial infarction; Z79.84 Long term (current) use of oral hypoglycemic drugs; Z79.82 Long term (current) use of aspirin; F17.210 Nicotine dependence, cigarettes, uncomplicated
CPT/HCPCS: 99284

== ENCOUNTER 2018-10-21 20:38 | Emergency (ER) | payer MEDICARE ==
--- OUTSIDE RECORDS SUMMARY | 2018-10-21 20:41 | XMS REPORT ---
:1960 [facility] Address [address] [place] [address] Dr. Vicente [address] [place] [id number] Care Team Providers Name Role Phone OTTONIEL [...] Comments WHITE BLOOD CELL COUNT (BEAKER) (test mhyg=064) 17.5 K/ L 3.5-10.5 RED BLOOD CELL COUNT (BEAKER) (test gzgq=420) 3.23 M/ L 3.93-5.22 HEMOGLOBIN (BEAKER) (test onpy=422) 9.0 GM/DL 11.2-15.7 HEMATOCRIT (BEAKER) (test aden=823) 29.2 % 34.1-44.9 MEAN CORPUSCULAR VOLUME (BEAKER) (test npay=639) 90.4 fL 79.4-94.8 MEAN CORPUSCULAR HEMOGLOBIN (BEAKER) (test luqv=106) 27.9 pg 25.6-32.2 MEAN CORPUSCULAR HEMOGLOBIN CONC (BEAKER) (test lzjw=854) 30.8 GM/DL 32.2- 35.5 RED CELL DISTRIBUTION WIDTH (BEAKER) (test qmei=740) 14.8 % 11.7-14.4 PLATELET COUNT (BEAKER) (test ubdq=491) 262 K/CU MM 150-450 MEAN PLATELET VOLUME (BEAKER) (test rozv=457) 11.2 fL 9.4-12.3 NUCLEATED RED BLOOD CELLS (BEAKER) (test zgqo=781) 0 /100 WBC 0-0 (CELLAVISION MANUAL DIFF)2017-11-21 15:44:00 Test Item Value Reference Range Comments NEUTROPHILS - REL (CELLAVISION)(BEAKER) (test 72 % zewm=2224) LYMPHOCYTES - REL (CELLAVISION)(BEAKER) (test 18 % bkvf=3415) MONOCYTES - REL (CELLAVISION)(BEAKER) (test 6 % wqyk=9510) EOSINOPHILS - REL (CELLAVISION)(BEAKER) (test 1 % quyc=5158) MYELOCYTES - REL (CELLAVISION)(BEAKER) (test 1 % 0-0 iqkr=0104) BANDS - REL (CELLAVISION)(BEAKER) (test 1 % 0-10 hsca=6459) ATYPICAL LYMPHOCYTES - REL (CELLAVISION)(BEAKER) 1 % 0-0 (test ppsf=9192) NEUTROPHILS - ABS (CELLAVISION)(BEAKER) (test 12.60 K/ul 1.56-6.13 frzu=3836) LYMPHOCYTES - ABS (CELLAVISION)(BEAKER) (test 3.15 K/ul 1.18-3.74 kwpx=4963) MONOCYTES - ABS (CELLAVISION)(BEAKER) (test 1.05 K/uL 0.24-0.36 cqkn=1833) EOSINOPHILS - ABS (CELLAVISION)(BEAKER) (test 0.18 K/uL 0.04-0.36 wdnm=3039) MYELOCYTES-ABS (CELLAVISION)(BEAKER) (test 0.18 K/uL 0.00-0.00 uxzi=3491) BANDS - ABS (CELLAVISION)(BEAKER) (test 0.18 K/uL 0.00-0.80 ugez=4440) ATYPICAL LYMPHOCYTES - ABS (CELLAVISION)(BEAKER) 0.18 K/uL 0.00-0.00 (test votu=1421) TOTAL COUNTED (BEAKER) (test rozr=3855) 100 PLT MORPHOLOGY (BEAKER) (test zkmq=097) Normal SMUDGE CELLS (BEAKER) (test xfrt=0537) Present HYPOCHROMIA (BEAKER) (test qqsq=609) 1+ few ANISOCYTOSIS (BEAKER) (test oknq=332) 1+ few MICROCYTES (BEAKER) (test lqwj=025) 1+ few PLATELET CONCENTRATION (CELLAVISION)(BEAKER) Adequate (test ivaz=8906) Received comment: User comments: Slide comments:POCT-GLUCOSE [id number] 07: 30:00 Test Item Value Reference Range Comments POC-GLUCOSE METER (BEAKER) 97 mg/dL 70-[address] [facility] [address] (test zglw=2346) [facility] [place] [address] [id number] 07:05:00 Test Item Value Reference Range Comments MAGNESIUM (BEAKER) (test gazv=351) 2.2 mg/dL 1.6-2.6 BASIC METABOLIC [id number] 07:05:00 Test Item Value Reference Range Comments SODIUM (BEAKER) (test 141 meq/L 136-145 fmxf=080) POTASSIUM (BEAKER) (test 4.0 meq/L 3.5-5.1 hslj=392) CHLORIDE (BEAKER) (test 103 meq/L 98-107 brah=027) CO2 (BEAKER) (test 31 meq/L 22-29 zsag=370) BLOOD UREA NITROGEN 26 mg/dL 7-21 (BEAKER) (test ntdl=117) CREATININE (BEAKER) (test 0.81 mg/dL 0.57-1.25 wett=692) GLUCOSE RANDOM (BEAKER) 91 mg/dL 70-105 (test chiq=945) CALCIUM (BEAKER) (test 8.8 mg/dL 8.4-10.2 flzz=276) EGFR (BEAKER) (test 72 mL/min/1.73 sq m ESTIMATED GFR IS NOT jsoq=0349) ACCURATE CREATININE CLEARANCE IN PREDICTING GLOMERULAR FILTRATION RATE. ESTIMATED GFR IS NOT APPLICABLE FOR DIALYSIS PATIENTS. POCT-GLUCOSE [id number] 21:29:00 Test Item Value Reference Range Comments POC-GLUCOSE METER (BEAKER) 251 mg/dL 70-110 TESTED AT [place] [id number] (test wyaa=0926) [facility] [place] [address] POCT-GLUCOSE [id number] 16:44:00 Test Item Value Reference Range Comments POC-GLUCOSE METER (BEAKER) 257 mg/dL 70-110 TESTED AT [address] (test fsci=8547) [facility] [place] [address] POCT-GLUCOSE [id number] 11:47:00 Test Item Value Reference Range Comments POC-GLUCOSE METER (BEAKER) 153 mg/dL 70-[address] [facility] [address] (test hccu=8990) [place] [address] CBC W/PLT COUNT & AUTO [id number] 10:51:00 Test Item Value Reference Range Comments WHITE BLOOD CELL COUNT (BEAKER) (test zlws=897) 22.5 K/ L 3.5-10.5 RED BLOOD CELL COUNT (BEAKER) (test xnwf=508) 3.52 M/ L 3.93-5.22 HEMOGLOBIN (BEAKER) (test juii=524) 9.7 GM/DL 11.2-15.7 HEMATOCRIT (BEAKER) (test fkta=051) 31.8 % 34.1-44.9 MEAN CORPUSCULAR VOLUME (BEAKER) (test mhhi=996) 90.3 fL 79.4-94.8 MEAN CORPUSCULAR HEMOGLOBIN (BEAKER) (test 27.6 pg 25.6-32.2 gmvp=675) MEAN CORPUSCULAR HEMOGLOBIN CONC (BEAKER) (test 30.5 GM/DL 32.2-35.5 ofpy=738) RED CELL DISTRIBUTION WIDTH (BEAKER) (test 14.8 % 11.7-14.4 szdb=497) PLATELET COUNT (BEAKER) (test flgl=843) 299 K/CU MM 150-450 MEAN PLATELET VOLUME (BEAKER) (test bxed=334) 11.1 fL 9.4-12.3 NUCLEATED RED BLOOD CELLS (BEAKER) (test 0 /100 WBC 0-0 tdmc=111) (CELLAVISION MANUAL DIFF)2017-11-20 10:51:00 Test Item Value Reference Range Comments NEUTROPHILS - REL (CELLAVISION)(BEAKER) (test 75 % onfr=0319) LYMPHOCYTES - REL (CELLAVISION)(BEAKER) (test 18 % xfjq=2835) MONOCYTES - REL (CELLAVISION)(BEAKER) (test 4 % cbnj=1766) EOSINOPHILS - REL (CELLAVISION)(BEAKER) (test 1 % hsbb=1447) METAMYELOCYTES - REL (CELLAVISION)(BEAKER) (test 2 % 0-0 abft=6338) NEUTROPHILS - ABS (CELLAVISION)(BEAKER) (test 16.88 K/ul 1.56-6.13 oujh=2236) LYMPHOCYTES - ABS (CELLAVISION)(BEAKER) (test 4.05 K/ul 1.18-3.74 nlpy=7059) MONOCYTES - ABS (CELLAVISION)(BEAKER) (test 0.90 K/uL 0.24-0.36 ikey=7257) EOSINOPHILS - ABS (CELLAVISION)(BEAKER) (test 0.23 K/uL 0.04-0.36 ytpw=1946) METAMYELOCYTES - ABS (CELLAVISION)(BEAKER) (test 0.45 K/uL 0.00-0.00 cwag=7116) TOTAL COUNTED (BEAKER) (test qrka=1736) 100 WBC MORPHOLOGY (BEAKER) (test ayrd=326) Normal PLT MORPHOLOGY (BEAKER) (test ivqi=438) Normal ANISOCYTOSIS (BEAKER) (test wozp=456) 1+ few MICROCYTES (BEAKER) (test wnir=996) 1+ few ARTIFACT (CELLAVISION)(BEAKER) (test hptz=2014) Present PLATELET CONCENTRATION (CELLAVISION)(BEAKER) Adequate (test jgst=3983) Received comment: User comments: Slide comments:POCT-GLUCOSE [id number] 07: 32:00 Test Item Value Reference Range Comments POC-GLUCOSE METER (BEAKER) 128 mg/dL 70-[address] [facility] [address] [place] [address] (test bpuu=0990) [facility] [place] [address] [id number] 06:35:00 Test Item Value Reference Range Comments MAGNESIUM (BEAKER) (test nigq=463) 2.3 mg/dL 1.6-2.6 BASIC METABOLIC [id number] 06:35:00 Test Item Value Reference Range Comments SODIUM (BEAKER) (test 141 meq/L 136-145 vqqb=731) POTASSIUM (BEAKER) (test 4.0 meq/L 3.5-5.1 srod=736) CHLORIDE (BEAKER) (test 102 meq/L 98-107 bjmd=388) CO2 (BEAKER) (test 32 meq/L 22-29 lxvr=030) BLOOD UREA NITROGEN 32 mg/dL 7-21 (BEAKER) (test dgfl=546) CREATININE (BEAKER) (test 1.04 mg/dL 0.57-1.25 bwob=887) GLUCOSE RANDOM (BEAKER) 126 mg/dL 70-105 (test cakj=131) CALCIUM (BEAKER) (test 8.7 mg/dL 8.4-10.2 lqel=127) EGFR (BEAKER) (test 54 mL/min/1.73 sq m ESTIMATED GFR IS NOT nejj=2421) ACCURATE CREATININE CLEARANCE IN PREDICTING GLOMERULAR FILTRATION RATE. ESTIMATED GFR IS NOT APPLICABLE FOR DIALYSIS PATIENTS. POCT-GLUCOSE [id number] 21:21:00 Test Item Value Reference Range Comments POC-GLUCOSE METER (BEAKER) 353 mg/dL 70-110 TESTED AT [address] (test vfgk=8139) [facility] [place] [address] POCT-GLUCOSE [id number] 18:11:00 Test Item Value Reference Range Comments POC-GLUCOSE METER (BEAKER) 204 mg/dL 70-110 TESTED AT [address] (test gdqt=7046) [facility] [place] [address] POCT-GLUCOSE [id number] 16:35:00 Test Item Value Reference Range Comments POC-GLUCOSE METER (BEAKER) 224 mg/dL 70-110 TESTED AT [address] (test dbhg=6704) [facility] [place] [address] POTASSIUM-STAT [id number] 14:38:00 Test Item Value Reference Range Comments POTASSIUM (BEAKER) (test vcrw=533) 4.5 meq/L 3.6-5.5 GLUCOSE-STAT [id number] 14:38:00 Test Item Value Reference Range Comments GLUCOSE RANDOM (BEAKER) (test iujq=064) 230 mg/dL 70-110 HGB/HCT (H&H) - STAT [id number] 14:38:00 Test Item Value Reference Range Comments HEMOGLOBIN (BEAKER) (test rkvb=322) 11.3 g/dL 12.0-15.0 HEMATOCRIT (BEAKER) (test ebmq=625) 33.0 % 36.0-45.0 BLOOD GAS, [id number] 13:18:00 Test Item Value Reference Range Comments PH ARTERIAL (BEAKER) (test vmyv=356) 7.39 7.35-7.45 PCO2 ARTERIAL (BEAKER) (test lbrm=948) 52 mmHg 35-45 PO2 ARTERIAL (BEAKER) (test ehsx=322) 66 mmHg 80-90 O2 SATURATION ARTERIAL (BEAKER) (test gasg=690) 93.4 % 96.0-97.0 HCO3 ARTERIAL (BEAKER) (test aucl=777) 31 mmol/L 21-29 BASE EXCESS ARTERIAL (BEAKER) (test vknu=191) 4.4 mmol/L -2.0-3.0 PATIENT TEMPERATURE (BEAKER) (test cjfl=6394) 36.0 C FIO2 (BEAKER) (test kvrk=0747) 72.0 % GLUCOSE-STAT [id number] 13:18:00 Test Item Value Reference Range Comments GLUCOSE RANDOM (BEAKER) (test bdmb=491) 178 mg/dL 70-110 HGB/HCT (H&H) - STAT [id number] 13:18:00 Test Item Value Reference Range Comments HEMOGLOBIN (BEAKER) (test wtbn=408) 10.6 g/dL 12.0-15.0 HEMATOCRIT (BEAKER) (test zztc=213) 31.0 % 36.0-45.0 CALCIUM, [id number] 13:18:00 Test Item Value Reference Range Comments CALCIUM IONIZED (BEAKER) (test qedq=156) 1.05 mmol/L 1.12-1.27 PH, BLOOD (BEAKER) (test hxdc=9373) 7.37 SODIUM NA-STAT [id number] 13:17:00 Test Item Value Reference Range Comments SODIUM (BEAKER) (test qora=769) 139 meq/L 135-148 POTASSIUM-STAT [id number] 13:17:00 Test Item Value Reference Range Comments POTASSIUM (BEAKER) (test iyuq=734) 4.3 meq/L 3.6-5.5 PLATELET AGGREGATION: FUNCTION [id number] 11:37:00 Test Item Value Reference Range Comments WEAK ADP RESULT(BEAKER) (test 100 % 60-91 cuah=3403) PLATELET FUNCTION SCREEN 60-100% indicates normal INTERP (BEAKER) (test platelet function pazi=6399) [id number] (BEAKER) Alyse Aguilera MD (electronic (test skja=9029) signature) PLATELET COUNT AGG (BEAKER) 308 K/CU MM 150-450 (test zbfq=6211) HEMOGLOBIN [id number] 10:52:00 Test Item Value Reference Range Comments HEMOGLOBIN A1C (BEAKER) (test keeg=602) 7.4 % 4.3-6.1 CBC W/PLT COUNT & AUTO [id number] 08:02:00 Test Item Value Reference Range Comments WHITE BLOOD CELL COUNT (BEAKER) (test opji=352) 18.3 K/ L 3.5-10.5 RED BLOOD CELL COUNT (BEAKER) (test bgtc=406) 3.98 M/ L 3.93-5.22 HEMOGLOBIN (BEAKER) (test hvft=342) 11.1 GM/DL 11.2-15.7 HEMATOCRIT (BEAKER) (test ohvl=187) 35.5 % 34.1-44.9 MEAN CORPUSCULAR VOLUME (BEAKER) (test fxlx=635) 89.2 fL 79.4-94.8 MEAN CORPUSCULAR HEMOGLOBIN (BEAKER) (test 27.9 pg 25.6-32.2 qblm=399) MEAN CORPUSCULAR HEMOGLOBIN CONC (BEAKER) (test 31.3 GM/DL 32.2-35.5 unzr=439) RED CELL DISTRIBUTION WIDTH (BEAKER) (test 14.5 % 11.7-14.4 rewh=386) PLATELET COUNT (BEAKER) (test pabo=578) 278 K/CU MM 150-450 MEAN PLATELET VOLUME (BEAKER) (test zemt=029) 11.5 fL 9.4-12.3 NUCLEATED RED BLOOD CELLS (BEAKER) (test 0 /100 WBC 0-0 ruup=102) (CELLAVISION MANUAL DIFF)2017-11-19 08:02:00 Test Item Value Reference Range Comments NEUTROPHILS - REL (CELLAVISION)(BEAKER) (test 78 % gzsf=4055) LYMPHOCYTES - REL (CELLAVISION)(BEAKER) (test 5 % fbei=6688) MONOCYTES - REL (CELLAVISION)(BEAKER) (test 4 % mdbu=0284) METAMYELOCYTES - REL (CELLAVISION)(BEAKER) (test 2 % 0-0 tsbc=9548) MYELOCYTES - REL (CELLAVISION)(BEAKER) (test 2 % 0-0 kfgd=2102) BANDS - REL (CELLAVISION)(BEAKER) (test 9 % 0-10 hqav=0792) NEUTROPHILS - ABS (CELLAVISION)(BEAKER) (test 14.27 K/ul 1.56-6.13 bjdf=4465) LYMPHOCYTES - ABS (CELLAVISION)(BEAKER) (test 0.92 K/ul 1.18-3.74 gpal=4140) MONOCYTES - ABS (CELLAVISION)(BEAKER) (test 0.73 K/uL 0.24-0.36 uvox=3343) METAMYELOCYTES - ABS (CELLAVISION)(BEAKER) (test 0.37 K/uL 0.00-0.00 mrgb=7230) MYELOCYTES-ABS (CELLAVISION)(BEAKER) (test 0.37 K/uL 0.00-0.00 dxyb=3282) BANDS - ABS (CELLAVISION)(BEAKER) (test 1.65 K/uL 0.00-0.80 lqov=0405) TOTAL COUNTED (BEAKER) (test giqh=1430) 100 RBC MORPHOLOGY (BEAKER) (test lwup=786) Normal WBC MORPHOLOGY (BEAKER) (test voge=597) Normal PLT MORPHOLOGY (BEAKER) (test trxd=780) Normal ARTIFACT (CELLAVISION)(BEAKER) (test bicz=0101) Present PLATELET CONCENTRATION (CELLAVISION)(BEAKER) Adequate (test vwoz=5905) Received comment: User comments: Slide comments:POCT-GLUCOSE [id number] 07: 40:00 Test Item Value Reference Range Comments POC-GLUCOSE METER (BEAKER) 180 mg/dL 70-110 TESTED AT [address] (test rfwu=3014) [facility] [place] [address] [id number] 02:52:00 Test Item Value Reference Range Comments POTASSIUM (BEAKER) (test mlgu=528) 4.7 meq/L 3.5-5.1 If diabeticIf Potassium greater than 5.5 mEq/L, call [id number] 02:52:00 Test Item Value Reference Range Comments MAGNESIUM (BEAKER) (test oswt=858) 2.3 mg/dL 1.6-2.6 If diabeticIf Potassium greater than 5.5 mEq/L, call nephrologistHEPATIC FUNCTION [id number] 02:52:00 Test Item Value Reference Range Comments TOTAL PROTEIN (BEAKER) (test tyze=197) 6.6 gm/dL 6.0-8.3 ALBUMIN (BEAKER) (test ymgl=2226) 3.6 g/dL 3.5-5.0 BILIRUBIN TOTAL (BEAKER) (test bkjp=257) 0.3 mg/dL 0.2-1.2 BILIRUBIN DIRECT (BEAKER) (test odan=817) 0.2 mg/dL 0.1-0.5 ALKALINE PHOSPHATASE (BEAKER) (test yicb=547) 120 U/L 40-150 AST (SGOT) (BEAKER) (test nikz=705) 13 U/L 5-34 ALT (SGPT) (BEAKER) (test seft=332) 31 U/L 6-55 If diabeticIf Potassium greater than 5.5 mEq/L, call [id number]- [id number] 02:52:00 Test Item Value Reference Range Comments GLUCOSE RANDOM (BEAKER) (test rwyt=409) 255 mg/dL 70-105 If diabeticIf Potassium greater than 5.5 mEq/L, call nephrologistBASIC METABOLIC [id number] 02:52:00 Test Item Value Reference Range Comments SODIUM (BEAKER) (test 137 meq/L 136-145 bxkc=562) POTASSIUM (BEAKER) (test 4.7 meq/L 3.5-5.1 bknr=456) CHLORIDE (BEAKER) (test 103 meq/L 98-107 nuty=063) CO2 (BEAKER) (test 26 meq/L 22-29 nkos=060) BLOOD UREA NITROGEN 29 mg/dL 7-21 (BEAKER) (test dxfs=716) CREATININE (BEAKER) (test 0.89 mg/dL 0.57-1.25 rdpj=877) GLUCOSE RANDOM (BEAKER) 255 mg/dL 70-105 (test jwfu=185) CALCIUM (BEAKER) (test 8.9 mg/dL 8.4-10.2 gkmi=410) EGFR (BEAKER) (test 65 mL/min/1.73 sq m ESTIMATED GFR IS NOT veke=3613) ACCURATE CREATININE CLEARANCE IN PREDICTING GLOMERULAR FILTRATION RATE. ESTIMATED GFR IS NOT APPLICABLE FOR DIALYSIS PATIENTS. If diabeticIf Potassium greater than 5.5 mEq/L, call [id number] 02:37:00 Test Item Value Reference Range Comments PARTIAL THROMBOPLASTIN TIME (BEAKER) (test 27.2 seconds 22.5-36.0 mmgs=755) PROTHROMBIN [id number] 02:36:00 Test Item Value Reference Range Comments PROTIME (BEAKER) (test avgt=930) 14.2 seconds 11.7-14.7 INR (BEAKER) (test ibhc=875) 1.1 <=5.9 RECOMMENDED COUMADIN/WARFARIN INR THERAPY RANGESSTANDARD DOSE: 2.0 - 3.0 Includes: PROPHYLAXIS forvenous thrombosis, systemic embolization; TREATMENT for venous thrombosis and/or pulmonary embolus.HIGH RISK: Target INR is 2.5-3.5 for patients with mechanical heart valves.HEMOGLOBIN AND [id number] 02 :29:00 Test Item Value Reference Range Comments HEMOGLOBIN (BEAKER) (test gcmn=395) 11.1 GM/DL 11.2-15.7 HEMATOCRIT (BEAKER) (test aeir=784) 35.5 % 34.1-44.9 POCT-GLUCOSE [id number] 00:48:00 Test Item Value Reference Range Comments POC-GLUCOSE METER (BEAKER) 269 mg/dL 70-[address] [facility] [address] (test behu=5543) [facility] [place] [address]
--- OUTSIDE RECORDS SUMMARY | 2018-10-21 20:41 | XMS REPORT | Clinical Summary ---
:1960 Author Organization [facility] Address [address] [place] [address] Care Team Providers Name Role Phone María [...] Problems Problem Noted Date AVF (arteriovenous fistula) ([facility]), Right femoral 11/21/2017 Coronary artery disease involving stillaguamish coronary artery of stillaguamish heart 11/21 without angina pectoris Acute on [...] MD ESRD (end stage 11/21/2017 renal disease) ([facility]) 11/19/2017 Orders Only General Internal Medicine after 10/20/2017 Social History Tobacco Use Types Packs/Day Years [...] 464 ms QTC Calculation(Bazett) 470 ms P Boyd 12 degrees R Boyd 32 degrees T Boyd 88 degrees Normal sinus rhythm with sinus [...] METER Routine 11/19/2017 12:45 AM CDT after 10/20/2017 Results RHYTHM STRIP - SCAN (11/22/2017 8:30 AM CDT) Narrative Performed At POC-Glucose meter (11/21/2017 7:17 AM CDT)Only the most recent of10 resultswithin the time period is included. POC-Glucose Meter 97Comment: TESTED AT 70 - 110 mg/dL [facility] [address] [facility] [id number] Specimen Blood Performing Organization Address City/State/Zipcode Phone Number [facility] [address] [place], [place] [phone] CENTER Manual Differential (11/21/2017 6:12 AM CDT)Only the most recent of3 resultswithin the time period is included. % Neutros 72 % [facility] % Lymphs 18 % [facility] % Monos 6 % [facility] % Eos 1 % [facility] % Myelo 1 (H) 0 - 0 % [facility] % Bands 1 0 - 10 % [facility] % Atypical Lymphs 1 (H) 0 - 0 % [facility] # Neutros 12.60 (H) 1.56 - 6.13 K/ul [facility] # Lymphs 3.15 1.18 - 3.74 K/ul [facility] # Monos 1.05 (H) 0.24 - 0.36 K/uL [facility] # Eos 0.18 0.04 - 0.36 K/uL [facility] # Myelo 0.18 (H) 0.00 - 0.00 K/uL [facility] # Bands 0.18 0.00 - 0.80 K/uL [facility] # Atypical Lymphs 0.18 (H) 0.00 - 0.00 K/uL [facility] Total Counted 100 [facility] Platelet Morphology Normal [facility] Smudge Cells Present [facility] Hypochromia 1+ few [facility] Anisocytosis 1+ few [facility] Microcytes 1+ few [facility] Platelet Conc Adequate [facility] Specimen Blood Narrative Performed At Received comment: [facility] User comments: Slide comments: Performing Organization Address City/[facility] Phone Number [facility] [address] [place] [address] [phone] CENTER CBC with platelet count + automated diff (11/21/2017 6:12 AM CDT)Only the most recent of3 resultswithin the time period is included. WBC 17.5 (H) 3.5 - 10.5 K/L [facility] RBC 3.23 (L) 3.93 - 5.22 M/L [facility] Hemoglobin 9.0 (L) 11.2 - 15.7 GM/DL [facility] Hematocrit 29.2 (L) 34.1 - 44.9 % [facility] MCV 90.4 79.4 - 94.8 fL [facility] MCH 27.9 25.6 - 32.2 pg [facility] MCHC 30.8 (L) 32.2 - 35.5 GM/DL [facility] RDW 14.8 (H) 11.7 - 14.4 % [facility] Platelets 262 150 - 450 K/CU MM [facility] MPV 11.2 9.4 - 12.3 fL [facility] nRBC 0 0 - 0 /100 WBC [facility] Specimen Blood Performing Organization Address City/[facility] Centercode Phone Number [facility] [address] [place] [address] CENTER Magnesium (11/21/2017 6:12 AM CDT)Only the most recent of3 resultswithin the time period is included. Magnesium 2.2 1.6 - 2.6 mg/dL [facility] Specimen Blood Performing Organization Address City/State/Zipcode Phone Number [facility] [address] [place] [address] [place] Basic metabolic panel (11/21/2017 6:12 AM CDT)Only the most recent of3 resultswithin the time period is included. Sodium 141 136 - 145 meq/L [facility] Potassium 4.0 3.5 - 5.1 meq/L [facility] Chloride 103 98 - 107 meq/L [facility] CO2 31 (H) 22 - 29 meq/L [facility] BUN 26 (H) 7 - 21 mg/dL [facility] Creatinine 0.81 0.57 - 1.25 mg/dL [facility] Glucose 91 70 - 105 mg/dL [facility] Calcium 8.8 8.4 - 10.2 mg/dL [facility] EGFR 72Comment: ESTIMATED GFR IS mL/min/1.73 sq m [facility] NOT ACCURATE CREATININE [facility] CENTER CLEARANCE IN PREDICTING GLOMERULAR FILTRATION RATE. ESTIMATED GFR IS NOT APPLICABLE FOR DIALYSIS PATIENTS. Specimen Blood Performing Organization Address City/[facility]/Zipcode Phone Number [facility] [address] [place], [place] [phone] [place] TRANSFUSION SERVICE REPORT - SCAN (11/20/2017 6:01 PM CDT) Narrative Performed At Potassium-Stat Lab (11/19/2017 2:27 PM CDT)Only the most recent of2 resultswithin the time period is included. Potassium 4.5 3.6 - 5.5 meq/L [facility] Specimen Blood, Arterial Performing Organization Address City/State/Zipcode Phone Number [facility] [address] [place] [address] [phone] [place] Glucose-Stat Lab (11/19/2017 2:27 PM CDT)Only the most recent of2 resultswithin the time period is included. Glucose 230 (H) 70 - 110 mg/dL [facility] Specimen Blood, Arterial Performing Organization Address [facility] Phone Number [address] [address] [phone] [place] HGB/HCT (H&H)-Stat Lab (11/19/2017 2:27 PM CDT)Only the most recent of2 resultswithin the time period is included. Hemoglobin 11.3 (L) 12.0 - 15.0 g/dL [facility] Hematocrit 33.0 (L) 36.0 - 45.0 % [facility] Specimen Blood, Arterial Performing Organization Address [facility] Phone Number [address] [address] [phone] [place] Sodium Na-Stat Lab (11/19/2017 1:09 PM CDT) Sodium 139 135 - 148 meq/L [facility] Specimen Blood, Arterial Performing Organization Address [facility] Phone Number [address] [phone] [place] Calcium, Ionized (11/19/2017 1:09 PM CDT) Calcium, Ion 1.05 (L) 1.12 - 1.27 mmol/L [facility] pH, Blood 7.37 [facility] Specimen Blood Performing Organization Address [facility] Phone Number [address] [address] [place] Blood gas, arterial (11/19/2017 1:09 PM CDT) pH, Arterial 7.39 7.35 - 7.45 [facility] pCO2, Arterial 52 (H) 35 - 45 mmHg [facility] pO2, Arterial 66 (L) 80 - 90 mmHg [facility] O2 Sat, Arterial 93.4 (L) 96.0 - 97.0 % [facility] HCO3, Arterial 31 (H) 21 - 29 mmol/L [facility] Base Excess, Arterial 4.4 (H) -2.0 - 3.0 mmol/L [facility] Patient Temperature 36.0 C [facility] FIO2 72.0 % [facility] Specimen Blood, Arterial Performing Organization Address City/[facility] Centercode Phone Number [address] [address] [place] Platelet Aggregation: Function Screen (11/19/2017 9:34 AM CDT) Weak ADP 100 (H) 60 - 91 % [facility] Plt. Function Screen 60-100% indicates [facility] Interpretation normal platelet [facility] function Pathologist: Alyse Aguilera MD [facility] (electronic [facility] signature) Platelets 308 150 - 450 K/CU MM [facility] Specimen Blood Performing Organization Address City/[facility] Centercode Phone Number [address] [phone] [place] Hemoglobin A1c (11/19/2017 7:07 AM CDT) Hemoglobin A1C 7.4 (H) 4.3 - 6.1 % [facility] Specimen Blood Performing Organization Address City/[facility] Centercode Phone Number [address] [address] [place] ECG 12 lead (11/19/2017 2:39 AM CDT) Specimen Narrative Performed At Ventricular Rate 62 BPM GE MUSE Atrial Rate 62 BPM P-R Interval 152 ms QRS Duration 98 ms Q-T Interval 464 ms QTC Calculation(Bazett) 470 ms P Boyd 12 degrees R Boyd 32 degrees T Boyd 88 degrees Normal sinus rhythm with sinus arrhythmia Incomplete left bundle branch block Prolonged QT No previous ECGs available Confirmed by MD CORTEZ YOCHAI ([id number]) on 11/19/2017 6:04:15 AM Procedure Note Interface, External Ris In - 11/19/2017 6:04 AM CDT Ventricular Rate 62 BPM Atrial Rate 62 BPM P-R Interval 152 ms QRS Duration 98 ms Q-T Interval 464 ms QTC Calculation(Bazett) 470 ms P Boyd 12 degrees R Boyd 32 degrees T Boyd 88 degrees Normal sinus rhythm with sinus arrhythmia Incomplete left bundle branch block Prolonged QT No previous ECGs available Confirmed by MD CORTEZ YOCHAI ([id number]) on 11/19/2017 6:04:15 AM Performing Organization Address City/[facility] Centercode Phone Number GE MUSE Type and screen, automated (11/19/2017 2:16 AM CDT) ABO/RH AUTOMATED (BEAKER) A NEGATIVE [facility] Ab Scrn NEGATIVE [facility] Specimen Blood Performing Organization Address [facility] Phone Number [address] [address] [phone] Hemoglobin and hematocrit (11/19/2017 2:16 AM CDT) Hemoglobin 11.1 (L) 11.2 - 15.7 GM/DL [facility] Hematocrit 35.5 34.1 - 44.9 % [facility] Specimen Blood Performing Organization Address [facility] Phone Number [address] [address] CENTER aPTT (11/19/2017 2:16 AM CDT) PTT 27.2 22.5 - 36.0 seconds [facility] Specimen Blood Performing Organization Address [facility] Phone Number [address] [address] CENTER Prothrombin time/INR (11/19/2017 2:16 AM CDT) Protime 14.2 11.7 - 14.7 seconds [facility] INR 1.1 <=5.9 [facility] Specimen Blood Narrative Performed At [facility] RECOMMENDED COUMADIN/WARFARIN INR THERAPY RANGES STANDARD DOSE: 2.0 - 3.0 Includes: PROPHYLAXIS for venous thrombosis, systemic embolization; TREATMENT for venous thrombosis and/or pulmonary embolus. HIGH RISK: Target INR is 2.5-3.5 for patients with mechanical heart valves. Performing Organization Address City/[facility] Phone Number [address] [address] CENTER Potassium (11/19/2017 2:16 AM CDT) Potassium 4.7 3.5 - 5.1 meq/L [facility] Specimen Blood Narrative Performed At diabetic [facility] If Potassium greater than 5.5 mEq/L, call process chemist Performing Organization Address [facility] Phone Number [address] [address] CENTER Glucose (11/19/2017 2:16 AM CDT) Glucose 255 (H) 70 - 105 mg/dL [facility] Specimen Blood Narrative Performed At diabetic [facility] If Potassium greater than 5.5 mEq/L, call process chemist Performing Organization Address [facility] Phone Number [address] [phone] [place] Hepatic function panel (11/19/2017 2:16 AM CDT) Protein, Total 6.6 6.0 - 8.3 gm/dL [facility] Albumin 3.6 3.5 - 5.0 g/dL [facility] Total Bilirubin 0.3 0.2 - 1.2 mg/dL [facility] Bilirubin, Direct 0.2 0.1 - 0.5 mg/dL [facility] Alkaline Phosphatase 120 40 - 150 U/L [facility] AST 13 5 - 34 U/L [facility] ALT 31 6 - 55 U/L [facility] Specimen Blood Narrative Performed At If diabetic [facility] If Potassium greater than 5.5 mEq/L, call process chemist Performing Organization Address City/State/Zipcode Phone Number [address] [address] CENTER after 10/20/2017 Insurance Payer Benefit Plan / Group Subscriber ID Type Phone Address [employer] - MEDICARE AAR/MEDICARE COMPLETE xxxxxxxxx MGD CARE Advance Directives For more information, please contact:[address] [phone] Code Status Date Activated Date Inactivated Comments Full Code 11/19/2017 12:57 AM 11/21/2017 2:12 PM This code status was determined by: Patient
[2018-10-21 21:24] LABS: Absolute Lymphocytes (CBC) 1.7 K/uL (0.7-4.9); Basophils % 0.6 % (0-1.3); Hematocrit 37.5 % (36.0-45.0); Lymphocytes % 14.3 % (15.3-44.8); MPV 9.2 fL (7.6-11.3); RBC Red Blood Cell Count 4.43 M/uL (3.86-4.86)
[2018-10-21 21:27] LABS: Protime INR 1.15
[2018-10-21 21:43] LABS: ALT/SGPT 22 U/L (12-78); AST/SGOT 11 U/L (15-37); Albumin 3.3 g/dL (3.4-5.0); Alkaline Phosphatase 121 U/L (45-117); BUN Blood Urea Nitrogen 18 mg/dL (7-18); Bicarbonate 27 mmol/L (21-32); Bilirubin Direct < 0.1 mg/dL (0-0.2); Bilirubin Total 0.2 mg/dL (0.2-1.0); Glucose Level 219 mg/dL (74-106); Magnesium 2.2 mg/dL (1.8-2.4); NT PRO-BNP 1903 pg/mL (<125); Potassium 3.9 mmol/L (3.5-5.1); Protein, Total 7.1 g/dL (6.4-8.2); Sodium Level 145 mmol/L (136-145); Troponin (Emerg Dept Use Only) 0.15 ng/mL (0.0-0.045)
[2018-10-21] MEDS ORDERED: ONDANSETRON 4 MG/2 ML VIAL ONE (21:53)
--- NOTE | 2018-10-21 23:43 | ER ---
Nurse's Notes [facility] Name: Leti Woods Age: 58 yrs Sex: Female : 1960 Arrival Date: 10/21/2018 Time: 20:39 Bed 6 Private MD: Diagnosis: Transient ischemic attack Presentation: 10/21 20:39 Presenting complaint: EMS states: Pt was cleaning her house when she felt dizzy and tr5 weak and almost fell. Pt also began to feel nauseated in route. Transition of care: patient was not received from another setting of care. 20:39 Method Of Arrival: EMS: [facility] tr5 20:41 Onset of symptoms was October 21, 2018. Risk Assessment: Do you want to hurt yourself or tr5 someone else? Patient reports no desire to harm self or others. Initial Sepsis Screen: Does the patient meet any 2 criteria? No. Patient's initial sepsis screen is negative. Does the patient have a suspected source of infection? No. Patient's initial sepsis screen is negative. Care prior to arrival: Glucose check: 250 Oxygen administered. via nasal cannula. 20:41 Acuity: KIRK 3 tr5 Triage Assessment: 20:44 General: Appears in no apparent distress. Behavior is calm, cooperative, appropriate tr5 for age. Pain: Denies pain. EENT: No signs and/or symptoms were reported regarding the EENT system. Neuro: Level of Consciousness is awake, alert, obeys commands, Oriented to person, place, time, situation, Bobtail Driver are equal bilaterally Moves all extremities. Gait is steady, Speech is normal, Facial symmetry appears normal, Reports dizziness, weakness. Cardiovascular: Heart tones present Bruits absent Capillary refill < 3 seconds Pulses are all present. Edema is absent. Respiratory: Airway is patent Trachea midline Respiratory effort is even, unlabored, Respiratory pattern is regular, symmetrical, Breath sounds are clear bilaterally. GI: Reports nausea. : No signs and/or symptoms were reported regarding the genitourinary system. Derm: Skin is intact, is healthy with good turgor, Skin is dry, Skin is pink, warm \T\ dry. Skin temperature is warm. Musculoskeletal: Capillary refill < 3 seconds, Range of motion: intact in all extremities. Historical: - Allergies: 20:44 No Known Allergies; tr5 - Home Meds: 20:44 amlodipine oral once daily [Active]; Aspirin Oral once daily [Active]; Coreg 25 mg Oral tr5 tab 1 tab 2 times per day [Active]; Eliquis oral [Active]; Lasix 20 mg Oral tab 1 tab once daily [Active]; Lipitor Oral [Active]; Lyrica Oral [Active]; metformin 1,000 mg Oral tab 1 tab 2 times per day [Active]; Prozac Oral [Active]; - PMHx: 20:44 Atrial Fib; COPD; Diabetes - NIDDM; Hypertension; Myocardial infarction; tr5 - Immunization history:: Adult Immunizations up to date, Adult Immunizations up to date. - Social history:: Smoking status: Patient uses tobacco products, denies chronic smoking, but will smoke occasionally. - Ebola Screening: : No symptoms or risks identified at this time. Screenin:40 VAN Screening: Visual Disturbance: No visual disturbance noted. Aphasia: No aphasia tr5 noted. Neglect: No neglect noted. 20:50 Abuse screen: Denies threats or abuse. Nutritional screening: No deficits noted. tr5 Tuberculosis screening: No symptoms or risk factors identified. Fall Risk Total Jones Fall Scale indicates No Risk (0-24 pts). 20:50 Patient has been NPO before screening. The patient is alert, able to follow commands. tr5 The patient does not exhibit slurred or garbled speech The patient is not exhibiting difficulty speaking. The patient does not exhibit difficulty understanding words. The patient is able to swallow own secretions with no drooling or need for suction. Patient tolerated one teaspoon of water. No drooling, immediate coughing, gurgling, or clearing of the throat was noted. The patient tolerated 90mL of water. No drooling, immediate coughing, gurgling, or clearing of the throat was noted. The patient passed the bedside swallow screening. Oral medications may be given as ordered. Contact Physician for further diet orders. Provider notified of bedside swallow screening results: Marky العلي MD. Assessment: 20:50 Reassessment: See triage. tr5 21:00 General: Appears in no apparent distress. uncomfortable, Behavior is calm, cooperative. rv Pain: Denies pain. 21:00 Neuro: Level of Consciousness is awake, alert, obeys commands, Oriented to person, rv place, time, situation. Neuro:. Cardiovascular: Patient's skin is warm and dry. Respiratory: Airway is patent. GI: No signs and/or symptoms were reported involving the gastrointestinal system. : No signs and/or symptoms were reported regarding the genitourinary system. EENT: No signs and/or symptoms were reported regarding the EENT system. Derm: Skin is intact. Musculoskeletal: No signs and/or symptoms reported regarding the musculoskeletal system. 21:15 Reassessment: Patient eating ice chips, tolerating well. lp1 22:59 Reassessment: Patient appears in no apparent distress at this time. Patient and/or tr5 family updated on plan of care and expected duration. Pain level reassessed. Patient is alert, oriented x 3, equal unlabored respirations, skin warm/dry/pink. 10/22 00:30 Reassessment: Patient appears in no apparent distress at this time. Patient and/or tr5 family updated on plan of care and expected duration. Pain level reassessed. Patient is alert, oriented x 3, equal unlabored respirations, skin warm/dry/pink. 00:55 Reassessment: EMS at bedside for transfer. lp1 01:09 Reassessment: Pt's daughter Daphne called by ER staff and notified of pt's transfer to [address] Vital Signs: 10/21 20:44 BP 149 / 63; Pulse 88; Resp 19; Temp 97.6(O); Pulse Ox 100% on 2 lpm NC; Weight 99.79 tr5 kg; Height 5 ft. 4 in. (162.56 cm); 22:59 BP 136 / 56; Pulse 90; Resp 15; Pulse Ox 97% on R/A; tr5 10/22 00:30 BP 119 / 58; Pulse 79; Resp 22; Pulse Ox 99% on 2 lpm NC; tr5 00:59 BP 111 / 59; Pulse 81; Resp 20; Pulse Ox 96% on 2 lpm NC; Pain 0/10; lp1 10/21 20:44 Body Mass Index 37.76 (99.79 kg, 162.56 cm) [facility] NIH Stroke Scale Scores: 10/21 20:50 NIHSS Score: 0 tr5 10/22 00:37 NIHSS Score: 0 tw4 ED Course: 10/21 20:39 Patient arrived in ED. 5 20:40 Makry العلي MD is Attending Physician. tw4 20:42 Triage completed. tr5 20:44 Arm band placed on. tr5 20:50 Fall risk band placed. Placed in gown. Bed in low position. water resource agent on. Pulse tr5 ox on. NIBP on. Door closed. Noise minimized. Warm blanket given. Head of bed elevated. 20:53 Keyur Mccormick, RN is Primary Nurse. tr5 21:13 Initial lab(s) drawn, by me, sent to lab. Inserted saline lock: 22 gauge in right lt1 antecubital area, using aseptic technique. 21:[address] via stretcher. nj 21:16 XRAY Chest (1 view) In Process Unspecified. EDMS 21:29 CT Head Brain wo Cont In Process Unspecified. EDMS 10/22 00:02 transfer transportation to receiving facility. tr5 00:02 No provider procedures requiring assistance completed. Patient transferred, IV remains tr5 in place. Administered Medications: 10/21 21:35 Drug: Zofran 4 mg Route: IVP; Site: right antecubital; rv 22:15 Follow up: Response: Marked relief of symptoms lp1 Outcome: 23:41 ER care complete, transfer ordered by . tw4 10/22 00:56 Condition: stable lp1 Instructed on the need for transfer. 00:59 Transferred by ground EMS to [facility], Transfer form completed. lp1 X-rays sent w/ patient. 01:12 Patient left the ED. lp1 NIH Stroke Scale - NIH Stroke Score Date: 10/21/2018 Time: 20:50 Total Score = 0 1a. Level of Consciousness (LOC) - 0(Alert) 1b. Level of Consciousness (LOC) (Year \T\ Age) - 0(Both) 1c. LOC Commands (Open \T\ Closes Eyes/Fire Prevention Engineer) - 0(Both) 2. Best Gaze (Lateral Gaze Paresis) - 0(Normal) 3. Visual Field Loss - 0(No visual loss) 4. Facial Palsy - 0(Normal) 5a. Left Arm: Motor (10-second hold) - 0(No drift) 5b. Right Arm: Motor (10-second hold) - 0(No drift) 6a. Left Leg: Motor (5-second hold - always test supine) - 0(No drift) 6b. Right Leg: Motor (5-second hold - always test supine) - 0(No drift) 7. Limb Ataxia (finger/nose \T\ heel/candelario - test with eyes open) - 0(Absent) 8. Sensory Loss (pinprick arms/legs/face) - 0(Normal) 9. Best Language: Aphasia (description/naming/reading) - 0(No aphasia) 10. Dysarthria (speech clarity - read or repeat words) - 0(Normal) 11. Extinction and Inattention (visual/tactile/auditory/spatial/personal) - 0(No abnormality) Initials: tr5 NIH Stroke Scale - NIH Stroke Score Date: 10/22/2018 Time: 00:37 Total Score = 0 1a. Level of Consciousness (LOC) - 0(Alert) 1b. Level of Consciousness (LOC) (Year \T\ Age) - 0(Both) 1c. LOC Commands (Open \T\ Closes Eyes/Fire Prevention Engineer) - 0(Both) 2. Best Gaze (Lateral Gaze Paresis) - 0(Normal) 3. Visual Field Loss - 0(No visual loss) 4. Facial Palsy - 0(Normal) 5a. Left Arm: Motor (10-second hold) - 0(No drift) 5b. Right Arm: Motor (10-second hold) - 0(No drift) 6a. Left Leg: Motor (5-second hold - always test supine) - 0(No drift) 6b. Right Leg: Motor (5-second hold - always test supine) - 0(No drift) 7. Limb Ataxia (finger/nose \T\ heel/candelario - test with eyes open) - 0(Absent) 8. Sensory Loss (pinprick arms/legs/face) - 0(Normal) 9. Best Language: Aphasia (description/naming/reading) - 0(No aphasia) 10. Dysarthria (speech clarity - read or repeat words) - 0(Normal) 11. Extinction and Inattention (visual/tactile/auditory/spatial/personal) - 0(No abnormality) Initials: tw4 Signatures: Dispatcher [employer] EDGloria Gamino RN RN lp1 Juan Diego Canada Terrence, MD MD tw4 Blane Dhaliwal RN RN Shira Abdul 1 Keyur Mccormick RN RN tr5 Corrections: (The following items were deleted from the chart) 10/21 20:54 20:44 BP 149 / 63; Pulse 88bpm; Resp 19bpm; Pulse Ox 100% 2 lpm Nasal Cannula; tr5 tr5 22:11 20:44 BP 149 / 63; Pulse 88bpm; Resp 19bpm; Pulse Ox 100% 2 lpm Nasal Cannula; tr5 99.79 kg; Height 5 ft. 4 in.; BMI: 37.7; tr5 :43 20:44 GI: No signs and/or symptoms were reported involving the gastrointestinal tr5 system. tr5 :43 20:44 : No signs and/or symptoms were reported regarding the genitourinary tr5 system. tr5
--- NOTE | 2018-10-21 23:43 | EDPHYS ---
Physician Documentation [facility] Name: Leti Woods Age: 58 yrs Sex: Female : 1960 Arrival Date: 10/21/2018 Time: 20:39 Bed 6 Private MD: ED Physician Marky العلي HPI: 10/22 00:37 This 58 yrs old Female presents to ER via EMS with complaints of Weakness. tw4 00:37 The patient presents to the emergency department with a speech or higher order brain tw4 function problem, aphasia, that is moderate. The patient presents to the emergency department with weakness of the entire body, generalized weakness, that is mild. Onset: The symptoms/episode began/occurred 4 hour(s) ago, and improved just prior to arrival. Context: occurred. Context: occurred at home, occurred while the patient was standing. Associated signs and symptoms: Pertinent positives: dizziness, Pertinent negatives: altered mental status, chills, fever, headache, nausea, neck stiffness, paresthesias, seizure, syncope, near-syncope, blurred vision, double vision, visual field changes. Severity of symptoms: At their worst the symptoms were moderate in the emergency department the symptoms are unchanged. Patient's baseline: Neuro: alert and fully oriented, Motor: no deficits. The patient has not experienced similar symptoms in the past. Historical: - Allergies: 10/21 20:44 No Known Allergies; tr5 - Home Meds: 20:44 amlodipine oral once daily [Active]; Aspirin Oral once daily [Active]; Coreg 25 mg Oral tr5 tab 1 tab 2 times per day [Active]; Eliquis oral [Active]; Lasix 20 mg Oral tab 1 tab once daily [Active]; Lipitor Oral [Active]; Lyrica Oral [Active]; metformin 1,000 mg Oral tab 1 tab 2 times per day [Active]; Prozac Oral [Active]; - PMHx: 20:44 Atrial Fib; COPD; Diabetes - NIDDM; Hypertension; Myocardial infarction; tr5 - Immunization history:: Adult Immunizations up to date, Adult Immunizations up to date. - Social history:: Smoking status: Patient uses tobacco products, denies chronic smoking, but will smoke occasionally. - Ebola Screening: : No symptoms or risks identified at this time. ROS: 10/22 00:37 Constitutional: Negative for fever, chills, and weight loss, Eyes: Negative for injury, tw4 pain, redness, and discharge, Cardiovascular: Negative for chest pain, palpitations, and edema, Respiratory: Negative for shortness of breath, cough, wheezing, and pleuritic chest pain, Abdomen/GI: Negative for abdominal pain, nausea, vomiting, diarrhea, and constipation, Back: Negative for injury and pain, MS/Extremity: Negative for injury and deformity. Neuro: Positive for dizziness, speech changes, Negative for altered mental status, gait disturbance, headache, hearing loss, seizure activity, tinnitus, tremor, visual changes, weakness. Exam: 00:37 Constitutional: This is a well developed, well nourished patient who is awake, alert, tw4 and in no acute distress. Head/Face: Normocephalic, atraumatic. Chest/axilla: Normal chest wall appearance and motion. Nontender with no deformity. No lesions are appreciated. Cardiovascular: Regular rate and rhythm with a normal S1 and S2. No gallops, murmurs, or rubs. Normal PMI, no JVD. No pulse deficits. Respiratory: Lungs have equal breath sounds bilaterally, clear to auscultation and percussion. No rales, rhonchi or wheezes noted. No increased work of breathing, no retractions or nasal flaring. Abdomen/GI: Soft, non-tender, with normal bowel sounds. No distension or tympany. No guarding or rebound. No evidence of tenderness throughout. Skin: Warm, dry with normal turgor. Normal color with no rashes, no lesions, and no evidence of cellulitis. MS/ Extremity: Pulses equal, no cyanosis. Neurovascular intact. Full, normal range of motion. Neuro: Awake and alert, GCS 15, oriented to person, place, time, and situation. Cranial nerves II-XII grossly intact. Motor strength 5/5 in all extremities. Sensory grossly intact. Cerebellar exam normal. Normal gait. Vital Signs: 10/21 20:44 BP 149 / 63; Pulse 88; Resp 19; Temp 97.6(O); Pulse Ox 100% on 2 lpm NC; Weight 99.79 tr5 kg; Height 5 ft. 4 in. (162.56 cm); 22:59 BP 136 / 56; Pulse 90; Resp 15; Pulse Ox 97% on R/A; tr5 10/22 00:30 BP 119 / 58; Pulse 79; Resp 22; Pulse Ox 99% on 2 lpm NC; tr5 00:59 BP 111 / 59; Pulse 81; Resp 20; Pulse Ox 96% on 2 lpm NC; Pain 0/10; lp1 10/21 20:44 Body Mass Index 37.76 (99.79 kg, 162.56 cm) tr5 NIH Stroke Scale Scores: 10/21 20:50 NIHSS Score: 0 tr5 10/22 00:37 NIHSS Score: 0 tw4 MDM: 10/21 20:40 Patient medically screened. tw4 10/22 00:37 Data reviewed: vital signs, nurses notes. Data interpreted: Pulse oximetry: Interpretation:. Test interpretation: by ED physician or midlevel provider: CT scan negative for acute changes. Counseling: I had a detailed discussion with the patient and/or guardian regarding: the historical points, exam findings, and any diagnostic results supporting the discharge/admit diagnosis. Special discussion:. 00:44 ED course: D/W Neurology Kristopher who agrees with higher level of care and accepts [facility] patient for transfer. Hospitalist will accept pt to [facility]. 10/21 20:54 Order name: Basic Metabolic Panel; Complete Time: 22:02 10/21 22:02 Interpretation: Normal except: CL 111; CRE 1.56; GFR 34; GLUC 219. 10/21 20:54 Order name: CBC with Diff; Complete Time: 22:02 10/21 22:02 Interpretation: Normal except: WBC 11.6; JUAN% 79.2; LYM% 14.3; NEUT A 9.2. 10/21 20:54 Order name: LFT's; Complete Time: 22:02 10/21 22:03 Interpretation: Normal except: AST 11; ALK 121; ALB 3.3; GLOB 3.8; A/G 0.9. 10/21 20:54 Order name: Magnesium; Complete Time: 22:02 10/21 22:03 Interpretation: Within normal limits: MG 2.2. 10/21 20:54 Order name: NT PRO-BNP; Complete Time: 22:02 10/21 22:03 Interpretation: Normal except: NT PRO-BNP 1903. tw4 07/30 20:54 Order name: PT-INR; Complete Time: 22:02 10/21 22:03 Interpretation: Normal except: PT 13.5. 10/21 20:54 Order name: Troponin (emerg Dept Use Only); Complete Time: 22:02 10/21 22:03 Interpretation: Normal except: TROPED 0.15. 10/21 20:54 Order name: XRAY Chest (1 view) 10/21 20:54 Order name: EKG; Complete Time: 21:03 10/21 20:54 Order name: Cardiac monitoring; Complete Time: 20:55 10/21 20:54 Order name: EKG - Nurse/Tech; Complete Time: 21:10 10/21 20:54 Order name: IV Saline Lock; Complete Time: 21:10 10/21 20:54 Order name: CT Head Brain wo Cont 10/21 20:54 Order name: Labs collected and sent; Complete Time: 21:10 10/21 20:54 Order name: O2 Per Protocol; Complete Time: 20:55 10/21 20:54 Order name: O2 Sat Monitoring; Complete Time: 20:54 Administered Medications: 10/21 21:35 Drug: Zofran 4 mg Route: IVP; Site: right antecubital; rv 22:15 Follow up: Response: Marked relief of symptoms lp1 Disposition: 10/21/18 23:41 Transfer ordered to [facility]. Diagnosis is Transient ischemic attack. - Reason for transfer: Higher level of care. - Accepting physician is Dr George. - Condition is Stable. - Problem is new. - Symptoms have improved. NIH Stroke Scale - NIH Stroke Score Date: 10/21/2018 Time: 20:50 Total Score = 0 1a. Level of Consciousness (LOC) - 0(Alert) 1b. Level of Consciousness (LOC) (Year \T\ Age) - 0(Both) 1c. LOC Commands (Open \T\ Closes Eyes/Slurry Mixer) - 0(Both) 2. Best Gaze (Lateral Gaze Paresis) - 0(Normal) 3. Visual Field Loss - 0(No visual loss) 4. Facial Palsy - 0(Normal) 5a. Left Arm: Motor (10-second hold) - 0(No drift) 5b. Right Arm: Motor (10-second hold) - 0(No drift) 6a. Left Leg: Motor (5-second hold - always test supine) - 0(No drift) 6b. Right Leg: Motor (5-second hold - always test supine) - 0(No drift) 7. Limb Ataxia (finger/nose \T\ heel/candelario - test with eyes open) - 0(Absent) 8. Sensory Loss (pinprick arms/legs/face) - 0(Normal) 9. Best Language: Aphasia (description/naming/reading) - 0(No aphasia) 10. Dysarthria (speech clarity - read or repeat words) - 0(Normal) 11. Extinction and Inattention (visual/tactile/auditory/spatial/personal) - 0(No abnormality) Initials: tr5 NIH Stroke Scale - NIH Stroke Score Date: 10/22/2018 Time: 00:37 Total Score = 0 1a. Level of Consciousness (LOC) - 0(Alert) 1b. Level of Consciousness (LOC) (Year \T\ Age) - 0(Both) 1c. LOC Commands (Open \T\ Closes Eyes/Slurry Mixer) - 0(Both) 2. Best Gaze (Lateral Gaze Paresis) - 0(Normal) 3. Visual Field Loss - 0(No visual loss) 4. Facial Palsy - 0(Normal) 5a. Left Arm: Motor (10-second hold) - 0(No drift) 5b. Right Arm: Motor (10-second hold) - 0(No drift) 6a. Left Leg: Motor (5-second hold - always test supine) - 0(No drift) 6b. Right Leg: Motor (5-second hold - always test supine) - 0(No drift) 7. Limb Ataxia (finger/nose \T\ heel/candelario - test with eyes open) - 0(Absent) 8. Sensory Loss (pinprick arms/legs/face) - 0(Normal) 9. Best Language: Aphasia (description/naming/reading) - 0(No aphasia) 10. Dysarthria (speech clarity - read or repeat words) - 0(Normal) 11. Extinction and Inattention (visual/tactile/auditory/spatial/personal) - 0(No abnormality) Initials: tw4 Signatures: Dispatcher [employer] EDMS Gloria Gary RN RN lp1 Marky العلي MD MD tw4 Blane Dhaliwal RN RN rv Keyur Mccormick RN RN tr5 Corrections: (The following items were deleted from the chart) 10/22 00:46 10/21 23:41 10/21/2018 23:41 Transfer ordered to [address] Diagnosis is Transient ischemic attack. Reason for transfer: Higher level of care. Accepting physician is Dr Burgess. Condition is Stable. Problem is new. Symptoms have improved. tw4 10/22 01:12 00:46 10/21/2018 23:41 Transfer ordered to [facility]. lp1 Diagnosis is Transient ischemic attack. Reason for transfer: Higher level of care. Accepting physician is Dr George. Condition is Stable. Problem is new. Symptoms have improved. tw4
[2018-10-22] MEDS ORDERED: PROMETHAZINE 25 MG/ML VIAL ONE (00:10)
--- NOTE | 2018-10-22 07:12 | RAD REPORT ---
EXAM DESCRIPTION: Jose Single View10/21/2018 9:11 pm CLINICAL HISTORY: Hypertension COMPARISON: May 2017 FINDINGS: Mild right basilar opacity may represent atelectasis. . The heart is moderately enlarged. Right hemidiaphragm remains elevated
--- NOTE | 2018-10-22 10:40 | RAD REPORT ---
EXAM DESCRIPTION: CT - Head Brain Wo Cont - 10/22/2018 4:09 am CLINICAL HISTORY: DIZZINESS TECHNIQUE: Axial computed tomography images of the head/brain without intravenous contrast. Sagitt al and coronal reformatted images were created and reviewed. This CT exam was performed using one o r more of the following dose reduction techniques: automated exposure control, adjustment of the mA and/or kV according to patient size, and/or use of iterative reconstruction technique. COMPARISON: No relevant prior studies available. FINDINGS: Limitations: None. Brain: Unremarkable. No hemorrhage. No significant white matter disease. No edema. Ventricles: Unremarkable. No ventriculomegaly. Bones/joints: Unremarkable. No acute fracture. Soft tissues: Unremarkable. Sinuses: Unremarkable as visualized. No acute sinusitis. Mastoid air cells: Unremarkable as visualized. No mastoid effusion. IMPRESSION: No acute findings. Electronically signed by: Asha Smith MD 10/21/2018 9:37 PM CDT Due to temporary technical issues with the PACS/Fluency reporting system, reports are being signed by the in house radiologist as a courtesy to ensure prompt reporting. The interpreting radiologist is f ully responsible for the content of the report.
--- NOTE | 2018-10-22 10:48 | EKG ---
Test Date: 2018-10-21 Test Time: 21:04:10 Bridge Carpenter: TR MEASUREMENT RESULTS: Intervals: Rate: 93 ME: QRSD: 94 QT: 386 QTc: [address] [place]: P: ME: QRS: 44 T: 149 INTERPRETIVE STATEMENTS: Atrial fibrillation ST & T wave abnormality, consider lateral ischemia Abnormal ECG Compared to ECG 05/29/2018 06:31:19 Possible ischemia now present Sinus tachycardia no longer present ST (T wave) deviation still present Electronically Signed On 10-22-18 10:47:39 CDT by Cali Alvarez
== END 2018-10-22 01:12 | disposition short-term general hospital (02) ==
LOC: ER 20:38
DX: G45.9 Transient cerebral ischemic attack, unspecified (principal); R47.01 Aphasia; I48.91 Unspecified atrial fibrillation; J44.9 Chronic obstructive pulmonary disease, unspecified; E11.9 Type 2 diabetes mellitus without complications; I10 Essential (primary) hypertension; I25.2 Old myocardial infarction; Z79.01 Long term (current) use of anticoagulants; Z79.82 Long term (current) use of aspirin; Z72.0 Tobacco use
CPT/HCPCS: 93005; 85025; 80048; 36415; 83735; 85610; 80076; 84484; 83880; 70450; 71045; J2405